=== PATIENT | female | born 1945 | race Caucasian/White ===

== ENCOUNTER → 2017-04-20 13:21 | Outpatient (CLI) | payer MEDICARE, SELFPAY ==
--- NOTE | 2017-04-20 13:22 | STE_ITS ---
Reason For Study: Chest Pain, CM, SOB Stress Results Protocol: Dobutamine Stress Echocardiogram Maximum Predicted HR: 150 bpm Target HR: 128 bpm% Maximum Predicted HR: 87 % DurationHeart Rate Stage (mm:ss) (bpm) BPDos e BASELINE 73 128/75 DSE- 10 MCG 3:11 75 142/7610.00 DSE- 20 MCG 3:12 12 3 154/8120.00 DSE- 30 MCG 2:02 13 0 138/8530.00 RECOVERY 98 94/64 Stress Duration: 8:25 mm:ss Maximum Stress HR: 130 bpm Baseline Echocardiogram Findings The estimated ejection fraction is 65 %. Stress Echo Wall motion Data Resting WMIntermediate WMStress WM Resting Wall Motion Wall Motion Stress No regional wall motion No regional wall motion abnormalities noted. abnormalities noted. EKG Data Normal intervals are noted. The patient was titrated from 10 mcg to a maximun of 30 mcg of dobutamine during the stress. The maximum heart rate attained was 130 beats per minute. This was 86% of maximum predicted heart rate. During dobutamine infusion, there were no ST or T wave changes noted to suggest ischemia. No arrhythmias noted. Interpretation Summary The estimated ejection fraction is 65 %. The patient was titrated from 10 mcg to a maximun of 30 mcg of dobutamine during the stress. Normal adequate dobutamine echocardiogram. Negative for ischemia by EKG and echocardiographic criteria. No anginal symptoms noted. No arrhythmias noted. Appropriate blood pressure response to dobutamine. Test terminated due to attainment of target heart rate. Patient unable to keep up with treadmill initially so was converted to dobutamine echocardiogram. Final LVEF is 75%. Patient tolerated procedure well no complications. Ordering Physician: Toy Silva Referring Physician: Toy Silva Performed By: Radha Mitchell, RDCS, RVT
== END ==
PROVIDERS: Family Provider Internal Medicine; PCP Internal Medicine; Visit Provider Internal Medicine Cardiovascular Disease
DX: R07.9 Chest pain, unspecified (principal); R06.02 Shortness of breath
CPT/HCPCS: 93017; 93350; J7030

== ENCOUNTER → 2018-03-08 12:30 | Outpatient (CLI) | payer MEDICARE, SELFPAY ==
--- NOTE | 2018-03-08 12:34 | ART_ITS ---
Reason For Study: LE numbness Procedure A bilateral lower extremity continuous wave Doppler with analog waveform analysis,segmental pressures,and ankle brachial indexes without exercise. Left Segmental Pressures Left brachial= 127mmHg. Left posterior tibial artery = 143mmHg. Left dorsalis pedis artery = 142mmHg. The left dorsalis pedis waveforms are triphasic. The left posterior tibial artery waveforms are triphasic. Right Segmental Pressures Right brachial= 134mmHg. Right posterior tibial artery = 148mmHg. Right dorsalis pedis artery = 133mmHg. The right dorsalis pedis waveforms are triphasic. The right posterior tibial artery waveforms are triphasic. Indices The right ankle brachial index by the dorsalis pedis is .99. The right ankle brachial index by the posterior tibial artery is 1.1. The left ankle brachial index by the dorsalis pedis is 1.1. The left ankle brachial index by the posterior tibial artery is 1.1. Interpretation Summary Resting ankle-brachial indices appear bilaterally normal. Doppler waveforms are well maintained bilaterally. Volume pulse recordings suggest mild digital waveform blunting bilaterally consistent with small vessel disease or vasospasm--clinical correlation would be appropriate. Ordering Physician: Toy Silva Referring Physician: Marlene Smart M.D. Performed By: Selin Richards RVT
--- NOTE | 2018-03-08 12:34 | CDU_ITS ---
Reason For Study: Bruit, Vertigo Rt. Velocities/BP Lt. Velocities/BP Prox CCA 66.3/19.9 cm/sec. Prox CCA 75.6/21.1 cm/sec. Mid CCA 72.1/20.5 cm/sec. Mid CCA 82.7/17.6 cm/sec. Dist CCA 60.4/18.8 cm/sec. Dist CCA 64.5/21.1 cm/sec. Prox ICA 47.4/15.1 cm/sec. Prox ICA 147.0/43.2 cm/sec. Mid ICA 62.3/22.4 cm/sec. Mid ICA 99.0/24.4 cm/sec. Dist ICA 56.4/18.9 cm/sec. Dist ICA 74.2/20.7 cm/sec. Rt. ICA/CCA = .86. Lt. ICA/CCA = 1.8. Prox ECA 123.0/26.7 cm/sec. Prox ECA 175.0/29.5 cm/sec. Rt. Vert. 68.8/13.3 cm/sec. Lt. Vert. 63.2/21.2 cm/sec. Right Extracranial There is homogeneous, smooth atherosclerotic plaque noted in the right common carotid artery. There is heterogeneous, irregular atherosclerotic plaque noted in the right internal carotid artery. There is no significant atherosclerotic plaque noted in the right external carotid artery. Antegrade flow is noted in the right vertebral artery. Left Extracranial There is intimal thickening but no significant atherosclerotic plaque noted in the left common carotid artery. There is heterogeneous, irregular atherosclerotic plaque noted in the left internal carotid artery. There is heterogeneous, irregular atherosclerotic plaque noted in the left external carotid artery. Antegrade flow is noted in the left vertebral artery. Procedure Carotid Duplex [id number]. Exam performed in department. 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 Performed By: Selin Richards RVT
--- OUTSIDE RECORDS SUMMARY | 2018-05-13 04:44 | XMS RPT_ITS ---
:1945 Author Organization OHIP Support Name Relationship Address Phone ROBERT CAMMIE Unavailable Unavailable + [place] [address] R Unavailable Unavailable Unavailable ROCHELLE RESENDIZER Unavailable Unavailable + [place] [address] PASTAMERALO, CAMMIE Unavailable Unavailable + [place] [address] R Unavailable Unavailable Unavailable ROCHELLE RESENDIZER Unavailable Unavailable + [place] [address] PASQUARIELLO, SUNNY Unavailable [address] + [place] [address] R Unavailable Unavailable Unavailable ROCHELLE RESENDIZER Unavailable . + [place] [address] PASQUARIELLO, SUNNY Unavailable [address] + [place] [address] R Unavailable Unavailable Unavailable ROCHELLE RESENDIZER Unavailable . + [place] [address] PASQUARIELLO, SUNNY Unavailable [address] + [place] [address] R Unavailable Unavailable Unavailable ROCHELLE RESENDIZER Unavailable . + [place] [address] PASQUARIELLO, SUNNY Unavailable [address] + [place] [address] R Unavailable Unavailable Unavailable ROCHELLE RESENDIZER Unavailable . + [place] [address] PASQUARIELLO, SUNNY Unavailable [address] + [place] [address] R Unavailable Unavailable Unavailable ROCHELLE RESENDIZER Unavailable . + [place] [address] PASQUARIELLO, SUNNY Unavailable [address] + [place] [address] R Unavailable Unavailable Unavailable ROQUE RESENDIZ Unavailable Unavailable + SUNNY JONES Unavailable [address] + [place] [address] R Unavailable Unavailable Unavailable ROQUE RESENDIZ Unavailable . + [place] [address] Care Team Providers Name Role Phone TALAMPAS, LUIS D Referring Unavailable TALAMPAS, LUIS D Attending Unavailable TALAMPAS, LUIS D Referring Unavailable TALAMPAS, LUIS D Referring Unavailable TALAMPAS, LUIS D Attending Unavailable Shorty Hanson Attending Unavailable Toy Silva Referring Unavailable Talampas, Luis Primary Care Unavailable Toy Silva Consulting Unavailable Toy Silva Attending Unavailable Toy Silva Referring Unavailable Talampas, Luis Primary Care Unavailable Toy Silva Attending Unavailable Talampas, Luis Referring Unavailable Talampas, Luis Primary Care Unavailable Toy Silva Attending Unavailable Talampas, Luis Referring Unavailable Talampas, Luis Primary Care Unavailable Carina Peña Attending Unavailable Toy Silva Attending Unavailable Toy Silva Referring Unavailable Toy Silva Attending Unavailable Talampas, Luis Referring Unavailable Toy Silva Attending Unavailable Talampas, Luis Referring Unavailable Toy Silva Attending Unavailable Toy Silva Referring Unavailable Talampas, Luis Primary Care Unavailable PROBLEMS PROBLEMS DATE TYPE CONDITION / CODE ATTENDING STATUS SOURCE 03/08/2018 Unknown R19.7 - Diarrhea, Shorty Hanson Active [facility] unspecified / Community R19.7(ICD-10) Hospital Repository 12/11/2017 Unknown R07.9 - Chest pain, Toy Silva Active [facility] unspecified / Community R07.9(ICD-10) Hospital Repository 12/11/2017 Unknown E78.2 - Mixed Toy Silva Active [facility] hyperlipidemia / Community E78.2(ICD-10) Hospital Repository 04/25/2017 Unknown I25.10 - Toy Silva Active [facility] Atherosclerotic heart Community disease of [facility] coronary artery Repository without angina pectoris / I25.10(ICD-10) 04/25/2017 Unknown F17.200 - Nicotine Toy Silva Active [facility] dependence, Community unspecified, Hospital uncomplicated / Repository F17.200(ICD-10) 04/20/2017 Unknown R06.09 - Other forms Toy Silva Active [facility] of dyspnea / Community R06.09(ICD-10) Hospital Repository 04/20/2017 Unknown I25.5 - Ischemic Toy Silva Active [facility] cardiomyopathy / Community I25.5(ICD-10) Hospital Repository 04/20/2017 Unknown I10 - Essential Toy Sliva Active [facility] (primary) Community hypertension / Hospital I10(ICD-10) Repository 04/20/2017 Unknown Z95.5 - Presence of Toy Silva Active [facility] coronary angioplasty Community implant and graft / Hospital Z95.5(ICD-10) Repository 05/01/2015 Active Essential (primary) NA Active [facility] hypertension / Clinic Main I10(ICD-10) [place] Repository 05/01/2015 Active Mixed hyperlipidemia NA Active [facility] / E78.2(ICD-10) Clinic Main [place] Repository 04/11/2017 Active Encounter for other NA Active [facility] specified special Clinic Main examinations / [place] Z01.89(ICD-10) Repository 04/11/2017 Active Other snf NA Active [facility] (current) drug Clinic Main therapy / [place] Z79.899(ICD-10) Repository PROCEDURES PROCEDURES No Procedure Records FoundRESULTS RESULTS ARTERIAL Observed: 03/08/2018 Status: F Source: [place] 3:31 PM [facility] REPOSITORY [facility] Cardiovascular Services [address] [place] [address] Lower Ext Art Exam w/o Exercis 03/08/18 1237 MR#: [id number] Acct: [id number] Name: SARAY HENRY Rep #: [id number] : 1945 72 From: Shorty Hanson MD Attending Dr: Toy Silva MD Status: REG CLI Ordering Dr: Toy Silva MD Date: 03/08/18 Location: [facility] Sex: F C Admitted: Reason For Study: LE numbness Procedure A bilateral lower extremity continuous wave Doppler with analog waveform analysis,segmental pressures,and ankle brachial indexes without exercise. Left Segmental Pressures Left brachial= 127mmHg. Left posterior tibial artery = 143mmHg. Left dorsalis pedis artery = 142mmHg. The left dorsalis pedis waveforms are triphasic. The left posterior tibial artery waveforms are triphasic. Right Segmental Pressures Right brachial= 134mmHg. Right posterior tibial artery = 148mmHg. Right dorsalis pedis artery = 133mmHg. The right dorsalis pedis waveforms are triphasic. The right posterior tibial artery waveforms are triphasic. Indices The right ankle brachial index by the dorsalis pedis is .99. The right ankle brachial index by the posterior tibial artery is 1.1. The left ankle brachial index by the dorsalis pedis is 1.1. The left ankle brachial index by the posterior tibial artery is 1.1. Interpretation Summary Resting ankle-brachial indices appear bilaterally normal. Doppler waveforms are well maintained bilaterally. Volume pulse recordings suggest mild digital waveform blunting bilaterally consistent with small vessel disease or vasospasm--clinical correlation would be appropriate. Ordering Physician: Toy Silva Referring Physician: Luis Smart M.D. Performed By: Seiln Richards [facility] 03/08/18 1530 Date Shorty Hanson MD CC: Toy Silva MD; Luis Smart MD Date Dictated: 03/08/18 1237 Date Transcribed: 03/08/18 1530 Manager Library: Signed CAROTID DUPLEX Observed: 03/08/2018 Status: F Source: [place] ULTRASOUND 3:27 PM [facility] REPOSITORY [facility] Cardiovascular Services [address] [place] [address] Carotid Duplex Ultrasound 03/08/18 1237 MR#: [id number] Acct: [id number] Name: JOCELYNNSARAY LUQUE Rep #: [id number] : 1945 72 From: Shorty Hanson MD Attending Dr: Toy Silva MD Status: REG CLI Ordering Dr: Toy Silva MD Date: 03/08/18 Location: [facility] Sex: F C Admitted: Reason For Study: Bruit, Vertigo Rt. Velocities/BP Lt. Velocities/BP Prox CCA 66.3/19.9 cm/sec. Prox CCA 75.6/21.1 cm/sec. Mid CCA 72.1/20.5 cm/sec. Mid CCA 82.7/17.6 cm/sec. Dist CCA 60.4/18.8 cm/sec. Dist CCA 64.5/21.1 cm/sec. Prox ICA 47.4/15.1 cm/sec. Prox ICA 147.0/43.2 cm/sec. Mid ICA 62.3/22.4 cm/sec. Mid ICA 99.0/24.4 cm/sec. Dist ICA 56.4/18.9 cm/sec. Dist ICA 74.2/20.7 cm/sec. Rt. ICA/CCA = .86. Lt. ICA/CCA = 1.8. Prox ECA 123.0/26.7 cm/sec. Prox ECA 175.0/29.5 cm/sec. Rt. Vert. 68.8/13.3 cm/sec. Lt. Vert. 63.2/21.2 cm/sec. Right Extracranial There is homogeneous, smooth atherosclerotic plaque noted in the right common carotid artery. There is heterogeneous, irregular atherosclerotic plaque noted in the right internal carotid artery. There is no significant atherosclerotic plaque noted in the right external carotid artery. Antegrade flow is noted in the right vertebral artery. Left Extracranial There is intimal thickening but no significant atherosclerotic plaque noted in the left common carotid artery. There is heterogeneous, irregular atherosclerotic plaque noted in the left internal carotid artery. There is heterogeneous, irregular atherosclerotic plaque noted in the left external carotid artery. Antegrade flow is noted in the left vertebral artery. Procedure Carotid Duplex [id number]. Exam performed in department. Interpretation Summary Irregular, calcific plague at the proximal right internal carotid with <50% stenosis. Irregular calcific plague at the distal left common carotid artery and proximal internal carotid artery with 50-69% stenosis of the internal carotid Normal flow right external carotid Moderate disease left external carotid Patent and antegrade vertebrals bilaterally Ordering Physician: Toy Silva Referring Physician: Luis Smart M.D. Performed By: Selin Richards RVT 03/08/18 1526 Date Shorty Hanson MD CC: Toy Silva MD; Luis Smart MD Date Dictated: 03/08/18 1237 Date Transcribed: 03/08/18 1526 Manager Library: Signed CARDIOLOGY VISIT Observed: 12/11/2017 Status: F Source: [place] REPORT 1:52 PM [facility] REPOSITORY [address] [place] [address] OFFICE VISIT Date of Service: 12/11/17 MR#: [id number] Acct: [id number] Name: SARAY HENRY Rep #: [id number] : 1945 Provider: Toy Silva MD Age/Sex: 72/F Location: [facility] Status: Signed HPI HPI Chief Complaint: Routine f/u Details: Chief Complaint: CAD, est with local inspector precision Details: SARAY HENRY, is a 72 F with a history of hypertension, hypercholesterolemia, coronary artery disease status post inferior wall myocardial infarction with emergent angioplasty on 07/17/14 at [facility] with drug-eluting stents 2 to the RCA. At that time she received what appears to be 3.5X 28 Xience [place] in the proximal RCA and a 3.5X 38 Xience alpine drug-eluting stent drug-eluting to the RCA. At that time her EF was 40-45%, and her LAD had a 40% diffuse stenosis, mild disease in her ramus intermedius, 40% left circumflex stenosis. At that time, the patient had severe substernal chest pressure, initially came to [facility], and then was transferred to [facility]. Patient has not had a repeat catheterization since that time. In addition she is a lifelong smoker, and has been smoking since age 18 and continues to do so, and continues to smoke about 1 pack/day. Her most recent echocardiogram dated 08/15/14 showed an EF of 40-45% with stage I diastolic dysfunction. RVSP was not noted. Patient formally saw Dr. Sofy Mace in [place], and was referred for establishment of care as well as dyspnea on exertion. According to the patient, on January 21, 2018 in the afternoon she developed similar substernal chest pressure, which was radiating down her left arm and into her neck, similar to her previous angina, took 2 sublingual nitroglycerin and it resolved. Her Plavix was discontinued about 1 year previous by her primary inspector precision. Prior to that and since that time the patient has had progressively worsening dyspnea on exertion and shortness of breath. She has had no exertional anginal symptoms however. Patient initially completed cardiac rehab when she had her [place] but very soon after that developed severe vertigo and was unable to exercise. Patient underwent dobutamine echocardiogram on 04/20/17, which was negative for inducible ischemia. In addition she underwent pulmonary function tests which demonstrated mildly reversible severe COPD with a DLCO of 48%. She was offered consultation with Dr. Mendoza but has thus far declined. In addition she underwent 2D echo with Doppler in March 2017 showed LV function of 65% and an RVSP of 25 mmHg. Patient returns for routine follow-up, and is doing fairly well. She her breathing markedly improved after stopping her Coreg. Patient complains of bilateral lower extremity numbness and cold feet, but no claudication symptoms. Unfortunately she continues to smoke cigarettes. In our office today her blood pressure is 118/74, pulse is 80 and regular. Her physical exam demonstrates clear lungs bilaterally, regular rate and rhythm, normal S1/S2, no S3-S4. She has no edema. Her lipids as of 04/11/17 show an HDL of 43 and an LDL of 69. Repeat lipids are EKG on previous visit demonstrates normal sinus rhythm, old inferior/posterior wall myocardial infarction, no acute changes. Intake Vital Signs12/11/17 Height 5 ft 5 in 12/11/17 Weight: 174 lb 12/11/17 Body Mass Index (BMI) 28.9 12/11/17 Blood Pressure 118/74 12/11/17 Respiratory Rate 20 H 12/11/17 Pulse Rate 80 Intake Visit Reasons: 6 M FU Allergies NSAIDS (Non-Steroidal Anti-Inflamma Allergy (Verified 11/27/17 10:58) itching Sulfa (Sulfonamide Antibiotics) Allergy (Verified 11/27/17 10:58) Unknown Medications aspirin 81 mg tablet,delayed release 81 mg PO QDAY 01/23/17 [History Confirmed 12/11/17] hydrocodone 5 mg-acetaminophen 325 mg tablet 1 tab PO BID PRN tab 01/23/17 [History Confirmed 12/11/17] meclizine 25 mg tablet 25 mg PO TID PRN tab 01/23/17 [History Confirmed 12/11/17] nitroglycerin 0.4 mg sublingual tablet 0.4 mg SUBLINGUAL Q5M PRN 01/23/17 [History Confirmed 12/11/17] rosuvastatin 5 mg tablet 5 mg PO ONCE 01/23/17 [History Confirmed 12/11/17] albuterol sulfate HFA 90 mcg/actuation aerosol inhaler 2 puff INHALATION Q6H 04/25/17 [History Confirmed 12/11/17] hydrochlorothiazide 12.5 mg capsule 12.5 mg PO QDAY #90 cap 04/25/17 [Rx Confirmed 12/11/17] losartan 25 mg tablet 25 mg PO DAILY 12/11/17 [History Confirmed 12/11/17] PFS Medical History Nicotine dependence (Chronic) Ischemic cardiomyopathy (Chronic) Mixed hyperlipidemia (Chronic) Hypertension (Chronic) Atherosclerotic heart disease of [place] coronary artery without angina pectoris (Chronic) Old inferior wall myocardial infarction (Chronic) Anxiety (Chronic) COPD (chronic obstructive pulmonary disease) (Chronic) Cataracts, bilateral (Chronic) Diverticulosis (Chronic) Nicotine addiction (Chronic) hemorroids (Chronic) Surgical History History of coronary artery stent placement (Chronic 07/17/14) History of partial hysterectomy (Chronic) Family History Brother CAD (coronary artery disease) mid 40's from [place] Son CAD (coronary artery disease) mid 40's from [place] Father Diabetes Social History Smoking Status: Current every day smoker tobacco type: cigarettes alcohol intake: current details: occasional ROS Const Const: Negative for fatigue, frequent falls, weakness, excessive sweating, headache(s) or difficulty sleeping Eyes Eyes: Negative for loss of peripheral vision, transient loss of vision, double vision, blurry vision or tunnel vision ENT ENT: Negative for headache(s), dizziness, Nosebleed/epistaxis or balance problems Cardio Chest Pain: No Palpitations: No Edema: None Muscle aches with walking: Bilateral (c/o BLE coldness and numbness) Resp Respiratory: Negative for SOB with activity, SOB at rest, SOB orthopnea\SOB lying down, Cough or paroxysmal nocturnal dyspnea Additional Details: Diminished lower 1/2 GI GI: Negative nausea, vomiting, heartburn or black,tarry stools : Negative for hematuria Musc Musc: Positive for joint pain (Bilateral shoulder pain with movement); negative for balance problems, muscle aches/ myalgia or muscle weakness Skin Skin: Negative non-healing lesions, rash or unusual bruising Neuro Neuro: Positive for orthostatic symptoms (Occasional lightheadedness); negative for frequent falls, weakness, headache(s), double vision, blurry vision, dizziness, lightheadedness, near syncope, syncope or lack of coordination Dash Hematologic/Lymphatic: Negative for easy bruising or easy bleeding Endo Endo: Negative for fatigue, excessive sweating or increased thirst/drinking Psych Psych: Negative for anxiety or depression Allergy Allergy/Immunology: Negative for rash, Negative for hives Cardiology Exam Const Appearance: cooperative, healthy appearing and no acute distress Nutritional Appearance: well nourished Orientation: alert, oriented x3 and oriented to person Head Head: normal to inspection, atraumatic and normocephalic Nose: external nose normal Face and Sinus: face symmetric Mouth: oral mucosae normal Eyes General: appearance normal, both eyes and all related structures Eyelids: eyelids normal Conjunctivae: conjunctivae normal Pupils: PERRL and normal by confrontation EOM: EOM intact bilaterally Neck Neck: normal visual inspection and full ROM Carotids: normal carotid upstroke Chest Chest inspection: normal inspection of the chest Auscultation: Bilateral: Clear to Auscultation Cardio Palpation: normal PMI Rate: regular rate Rhythm: regular rhythm Heart sounds: S1 normal and S2 normal GI GI: normal to inspection, no hepatosplenomegaly and bowel sounds present Neuro General: alert, oriented x3, awake, CN's II-XI intact bilaterally and moves all extremities Skin Skin: no rashes or lesions noted Extremities Pulses: Normal: Right Femoral Pulse, Left Femoral Pulse, Right Dorsalis Pedis Pulse, Left Dorsalis Pedis Pulse, Right Posterior Tibial Pulse, Left Posterior Tibial Pulse, Right Radial Pulse, Left Radial Pulse Lower Extremity Edema: None: Bilateral Psych Psychological: normal affect Assessment AND Plan 1. Atherosclerotic heart disease of [place] coronary artery without angina pectoris I25.10 Plan 1. Coronary artery disease: No exertional anginal symptoms at this time. No indication for any additional testing. I recommended that she continue her current antihypertensive medications as well as baby aspirin, hydrochlorothiazide, and losartan. I strongly encouraged her to discontinue all tobacco products, and the patient is willing to do so. If she is unable to quit by the time of our next visit, she is agreed to try Chantix therapy. She has failed nicotine patches twice in the past. In addition we will obtain carotid Dopplers for her carotid stenosis monitoring, as well as bilateral exercise PVRs for her lower extremity numbness, tingling and cold feet. Initially her pulses in her feet are depressed although present. 2. Mixed hyperlipidemia E78.2 Plan 2. Hyperlipidemia: We are awaiting a repeat lipid profile. Continue Crestor. Her previous lipid profile showed an LDL of 69 and HDL of 43 in March 2017. 3. Return office in 6 months. This note was generated using a voice recognition system and there may be incorrect words, spelling or punctuation that were not noted when reviewing the office note prior to saving. Orders Orders: Plan Detail Other Orders Orders: Follow Up +6M (Ricardo) Coding Level of Care Code Off vis,est,level 3 Diagnoses Atherosclerotic heart disease of [place] coronary artery without angina pectoris I25.10 Mixed hyperlipidemia E78.2 Coding Level of Care Code Off vis,est,level 3 Diagnoses Atherosclerotic heart disease of [place] coronary artery without angina pectoris I25.10 Mixed hyperlipidemia E78.2 12/11/17 1702 <Electronically signed by Toy Silva MD> Date Toy Silva MD [facility] Signature: Date (if applicable) CC: Luis Smart MD CARDIOLOGY VISIT Observed: 11/29/2017 Status: F Source: [place] REPORT 2:06 PM [facility] REPOSIT[facility] [address] [place] [address] OFFICE VISIT Date of Service: 12/11/17 MR#: [id number] Acct: [id number] Name: SARAY HENRY Rep #: [id number] : 1945 Provider: Toy Silva MD Age/Sex: 72/F Location: [facility] Status: Signed HPI HPI Details: SARAY HENRY, is a 72 F who presents to the office today for Intake Intake Visit Reasons: 6 M FU Allergies NSAIDS (Non-Steroidal Anti-Inflamma Allergy (Verified 11/27/17 10:58) itching Sulfa (Sulfonamide Antibiotics) Allergy (Verified 11/27/17 10:58) Unknown Medications aspirin 81 mg tablet,delayed release 81 mg PO QDAY 01/23/17 [History Confirmed 04/25/17] hydrocodone 5 mg-acetaminophen 325 mg tablet 1 tab PO BID PRN tab 01/23/17 [History Confirmed 04/25/17] meclizine 25 mg tablet 25 mg PO TID PRN tab 01/23/17 [History Confirmed 04/25/17] nitroglycerin 0.4 mg sublingual tablet 0.4 mg SUBLINGUAL Q5M PRN 01/23/17 [History Confirmed 04/25/17] rosuvastatin 5 mg tablet 5 mg PO ONCE 01/23/17 [History Confirmed 04/25/17] valsartan 40 mg tablet 40 mg PO QDAY tab 01/23/17 [History Confirmed 04/25/17] albuterol sulfate HFA 90 mcg/actuation aerosol inhaler 2 puff INHALATION Q6H 04/25/17 [History Confirmed 04/25/17] hydrochlorothiazide 12.5 mg capsule 12.5 mg PO QDAY #90 cap 04/25/17 [Rx Confirmed 04/25/17] [facility] Medical History Nicotine dependence (Chronic) Ischemic cardiomyopathy (Chronic) Mixed hyperlipidemia (Chronic) Hypertension (Chronic) Atherosclerotic heart disease of [place] coronary artery without angina pectoris (Chronic) Old inferior wall myocardial infarction (Chronic) Anxiety (Chronic) COPD (chronic obstructive pulmonary disease) (Chronic) Cataracts, bilateral (Chronic) Diverticulosis (Chronic) Nicotine addiction (Chronic) hemorroids (Chronic) Surgical History History of coronary artery stent placement (Chronic 07/17/14) History of partial hysterectomy (Chronic) Family History Brother CAD (coronary artery disease) mid 40's from [place] Son CAD (coronary artery disease) mid 40's from [place] Father Diabetes Social History Smoking Status: Current every day smoker tobacco type: cigarettes alcohol intake: current details: occasional ROS Const Const: Negative for fatigue, weakness, body ache, fever(s), headache(s), chills, frequent falls, night sweats, daytime sleepiness, difficulty sleeping, excessive sweating, weight gain, weight loss, increased appetite, poor appetite, anorexia or other Eyes Eyes: Negative for blind spots, loss of peripheral vision, transient loss of vision, blurry vision, change in vision, double vision, floaters, tunnel vision or other ENT ENT: Negative for headache(s), dizziness, hearing loss, tinnitus, Nosebleed/epistaxis, balance problems, post nasal drip, lip swelling, tongue swelling, bleeding gums, hoarseness, neck pain, dry mouth or other Cardio Chest Pain: No Resp Respiratory: Negative for SOB with activity, SOB at rest, SOB orthopnea\SOB lying down, Coughing up blood/hemoptysis, chest congestion, pain on inspiration, snoring, stridor, wheezing, crackles, paroxysmal nocturnal dyspnea or other GI GI: Negative nausea, vomiting, heartburn, constipation, belching, bloating, cramping, vomiting blood/hematemesis, bright, red blood in stools, black,tarry stools, loose stools, Difficulty Swallowing or other : Negative for hematuria, frequent nighttime urination/ nocturia, erectile dysfunction or abnormal vaginal bleeding Musc Musc: Negative for balance problems, muscle aches/ myalgia, muscle weakness or joint pain Skin Skin: Negative redness, non-healing lesions, rash, unusual bruising, skin ulcer, wounds, jaundice or other Neuro Neuro: Negative for weakness, headache(s), frequent falls, blurry vision, double vision, dizziness, lightheadedness, near syncope, syncope, orthostatic symptoms, confusion, memory loss, restless legs, vertigo, seizures, lack of coordination or other Dash Hematologic/Lymphatic: Negative for easy bleeding, easy bruising, enlarged lymph nodes or other Endo Endo: Negative for fatigue, excessive sweating, cold intolerance, heat intolerance, flushing, increased thirst/drinking, increased hunger, hair loss, hair growth or other Psych Psych: Negative for anxiety, depression, thoughts of harming anyone, thoughts of harming yourself, visual hallucinations, panic attacks or audible hallucinations Allergy Allergy/Immunology: Negative for lip swelling, Negative for tongue swelling, Negative for rash, Negative for throat swelling, Negative for hives Coding Level of Care Code Off vis,new,level 3 Coding Level of Care Code Off vis,new,level 3 11/29/17 1406 <Electronically signed by Toy Silva MD> Date Toy Silva MD Cosign Signature: Date (if applicable) CC: Luis Smart MD PROGRESS Observed: 09/20/2017 Status: COMPLETED Source: [place] 12:18 PM [facility] REPOSITORY [facility] ID: [id number] Author: Luis Smart Service: (none) Author Type: Physician Type: Progress Notes Filed: 10/10/2017 11:45 PM Note Text: Patient presents with: f/up SUBJECTIVE: Saray Henry is a 71 year old year old lady here today for follow up appointment for review of medical conditions. In middle of the night sometimes gets a little lightheaded/woozy--sugar versus BP. Has BP cuff but had not checked BP. Does not have DM, so does not have a glucometer. Discussed diet--has gained weight since stents placed after UT. Has been drinking lemonade daily the past 3 years in addition to what she had been eating before the UT. Boyfriend likes baked goods so she does a lot of baking--she ends up eating more than she would have if was not baking for him. Does like pasta and bread, though limits pasta to once a week. Discussed needing to replace Diovan since not available now. Did not get replacement losartan 50 mg since was worried might drop her pressure after read that could interact with her water pill. Pharmacist had recommended 50 mg being equivalent though was taking just 40 mg Diovan. BPs have been running on the low side. Even after inspector precision stopped Coreg, BP still in 100's SBP even at July appointment with me. Ran out of Diovan after Monday dose. Only on HCTZ yesterday and today. Feels okay. No symptoms of BP too high or too low. 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 aspirin, enteric coated (ASPIRIN, ENTERIC COATED) 81 mg EC tablet take 1 tablet by mouth once daily triamcinolone acetonide (KENALOG) 0.1 % cream Apply 1 application to affected area three times daily as needed. Apply sparingly to area for rash/itching on lower back. ketoconazole (NIZORAL) 2 % cream Apply 1 application to affected area once daily. To lower back; extend to 7 days after rash clears up. nitroglycerin sublingual (NITROQUICK) 0.4 mg SL tablet Dissolve 1 tablet under the tongue every 5 minutes as needed for Chest Pain. albuterol HFA (VENTOLIN HFA) 90 mcg/actuation inhaler Inhale 2 Puffs as instructed every 4 hours as needed for Wheezing/Shortness of Breath. Hydrochlorothiazide 12.5 mg capsule Take 12.5 mg by mouth once daily. HYDROcodone-acetaminophen (NORCO) 5-325 mg per tablet Take 1 tablet by mouth twice daily as needed for Pain. Blood Pressure Cuff - Home Use BLOOD PRESSURE CUFF FOR HOME USE. DX: I10 Hypertension, I25.10 CAD nicotine (NICODERM) 21 mg/24 hr Apply 1 Patch as directed every 24 hours. rosuvastatin (CRESTOR) 5 mg tablet Take 1 tablet by mouth daily at bedtime. meclizine (ANTIVERT) 25 mg tab Take 1 tablet by mouth three times daily as needed (dizziness). L.acidophilus-bifido.longum (PROBIOTIC PEARLS) 15 mg (1 billion cell) cpDR Take 1 tablet by mouth once daily as needed. dicyclomine (BENTYL) 10 mg capsule Take 1 capsule by mouth three times daily as needed. LORazepam (ATIVAN) 0.5 mg tab Take 1 tablet by mouth once daily as needed. diphenhydrAMINE (BENADRYL) 25 mg ORAL capsule as needed No current facility-administered medications for this visit. OBJECTIVE: BP 120/80 (BP Site: Left Arm, BP Position: Sitting, BP Cuff Size: Regular Adult) Pulse 76 Resp 20 Wt 78.9 kg (174 lb) SpO2 96% BMI 28.96 kg/m? Patient is overweight with central obesity habitus though BMI <30; alert, oriented times 3, no apparent distress, affect is bright, reactive. Last 5 Encounter BP Readings: Date: BP: 09/20/2017 120/80 08/04/2017 100/60 05/01/2017 100/62 04/19/2017 132/72 03/02/2017 98/64 Last 5 Encounter Wt Readings: Date: Wt: 09/20/2017 78.9 kg (174 lb) 08/04/2017 78.5 kg (173 lb) 05/01/2017 77.6 kg (171 lb) 04/19/2017 77.1 kg (170 lb) 03/02/2017 77.6 kg (171 lb) Heart: Regular rate, rhythm, no murmurs, gallops, rubs. Lungs: Clear to auscultation, bilaterally, breathing non labored. Ext: No cyanosis, clubbing, or edema. Component Latest Ref Rng AND Units 04/21/2015 08/06/2015 01/05/2016 08/08/2016 04/11/2017 09/18/2017 WBC 3.70 - 11.00 k/uL 8.77 9.34 9.31 RBC 3.90 - 5.20 m/uL 4.83 5.10 4.90 Hemoglobin 11.5 - 15.5 g/dL 15.2 15.7 (H) 15.2 Hematocrit 36.0 - 46.0 % 46.0 49.4 (H) 46.8 (H) MCV 80.0 - 100.0 fL 95.2 96.9 95.5 MCH 26.0 - 34.0 pG 31.5 30.8 31.0 MCHC 30.5 - 36.0 g/dL 33.0 31.8 32.5 RDW-CV 11.5 - 15.0 % 13.4 12.4 13.1 Platelet Count 150 - 400 k/uL 297 320 318 MPV 9.0 - 12.7 fL 9.9 10.2 10.3 Neut% % 64.4 Abs Neut (ANC) 1.45 - 7.50 k/uL 5.99 Lymph% % 27.2 Abs Lymph 1.00 - 4.00 k/uL 2.53 Grant% % 5.8 Abs Grant <0.87 k/uL 0.54 Eosin% % 2.0 Abs Eosin <0.46 k/uL 0.19 Baso% % 0.6 Abs Baso <0.11 k/uL 0.06 Nucleated Reds 0 /100 WBC 0.0 Absolute nRBC <0.01 k/uL <0.01 <0.01 Diff Type Auto Diff Protein, Total 6.3 - 8.0 g/dL 6.8 Albumin 3.9 - 4.9 g/dL 4.0 Calcium 8.5 - 10.2 mg/dL 9.1 9.2 9.0 9.0 9.4 9.2 Bilirubin, Total 0.2 - 1.3 mg/dL 0.2 Alkaline Phosphatase 32 - 117 U/L 70 AST 13 - 35 U/L 17 Glucose 74 - 99 mg/dL 86 90 102 (H) 100 (H) 87 97 BUN 7 - 21 mg/dL 8 8 9 7 9 8 Creatinine 0.58 - 0.96 mg/dL 0.64 (L) 0.59 (L) 0.67 0.68 0.63 0.67 Sodium 136 - 144 mmol/L 140 140 143 139 138 140 Potassium 3.7 - 5.1 mmol/L 4.1 4.3 4.0 4.2 4.0 3.9 Chloride 97 - 105 mmol/L 100 100 100 99 95 (L) 96 (L) CO2 22 - 30 mmol/L 31 27 27 27 33 (H) 29 Anion Gap 9 - 18 mmol/L 9 13 16 13 10 15 ALT 7 - 38 U/L 13 13 eGFR- >60 >60 >60 >60 >60 >60 eGFR-All Other Races . >60 >60 >60 >60 >60 >60 Triglyceride <150 mg/dL 201 (H) 176 (H) 168 (H) 190 (H) 219 (H) Cholesterol, Total <200 mg/dL 184 157 186 175 156 HDL Cholesterol >39 mg/dL 53 (L) 43 (L) 49 (L) 45 (L) 43 VLDL Cholesterol <30 mg/dL 40 35 34 38 44 (H) LDL Cholesterol <100 mg/dL 91 79 103 92 69 Fasting Time hrs FASTING fasting 11 11 10 TC:HDL Ratio <5.10 3.47 3.65 3.80 3.89 3.63 LDL:HDL Ratio <2.54 1.72 1.84 2.10 2.04 1.60 Non HDL Cholesterol <130 mg/dL 131 114 137 130 113 CK 30 - 220 U/L 23 (L) WSR 0 - 15 mm/hr 2 ASSESSMENT AND PLAN: Encounter Diagnosis ICD-10-CM 1. Essential hypertension I10 losartan (COZAAR) 25 mg tablet COMP METABOLIC PANEL CBC 2. Mixed hyperlipidemia E78.2 LIPID PANEL BASIC 3. Chronic right-sided thoracic back pain M54.6 HYDROcodone-acetaminophen (NORCO) 5-325 mg per tablet G89.29 4. Overweight (BMI 25.0-29.9) E66.3 5. Tobacco use disorder F17.200 6. Encounter for long-term current use of medication Z79.899 COMP METABOLIC PANEL CBC Discussed BP med (Diovan and recall, and switch to other ARB, Cozaar) as noted above. Adjust dose as indicated. Plans to cut back on sweets. Will help with TG as well as weight loss and DM prevention. Discussed smoking cessation--encouraged to deal with triggers. Aware of reasons needs to quit smoking. Above issues addressed with patient. Patient involved in shared decision making for management of her medical issues. History and medications reviewed. Epic updated as needed Refills taken care of and meds adjusted as indicated after reviewed history, exam and labs. Health Maintenance reviewed. Updated record and/or ordered tests as recorded. Encouraged on efforts at healthy diet and regular exercise and adequate sleep. The majority of the visit was spent counseling and/or coordinating care for the patient. Vvpb-as-ugtt time was at least 25 minutes. Luis Smart MD CNOV Observed: 09/20/2017 Status: COMPLETED Source: [place] 11:40 AM [facility] [place] REPOSITORY Office Visit (INTMWS) SARAY HENRY ([id number]) 1945 F Date Time Provider Department 09/20/17 11:40 AM LUIS SMART INTMWS During your visit today, we recorded the following information about you: Pulse Respiration Blood pressure Weight 76/minute 20/minute 120/80 78.9 kg Luis Smart MD 10/10/2017 11:45 PM Signed Patient presents with: f/up SUBJECTIVE: Saray Henry is a 71 year old year old lady here today for follow up appointment for review of medical conditions. In middle of the night sometimes gets a little lightheaded/woozy--sugar versus BP. Has BP cuff but had not checked BP. Does not have DM, so does not have a glucometer. Discussed diet--has gained weight since stents placed after UT. Has been drinking lemonade daily the past 3 years in addition to what she had been eating before the UT. Boyfriend likes baked goods so she does a lot of baking--she ends up eating more than she would have if was not baking for him. Does like pasta and bread, though limits pasta to once a week. Discussed needing to replace Diovan since not available now. Did not get replacement losartan 50 mg since was worried might drop her pressure after read that could interact with her water pill. Pharmacist had recommended 50 mg being equivalent though was taking just 40 mg Diovan. BPs have been running on the low side. Even after inspector precision stopped Coreg, BP still in 100's SBP even at July appointment with me. Ran out of Diovan after Monday dose. Only on HCTZ yesterday and today. Feels okay. No symptoms of BP too high or too low. 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 aspirin, enteric coated (ASPIRIN, ENTERIC COATED) 81 mg EC tablet take 1 tablet by mouth once daily triamcinolone acetonide (KENALOG) 0.1 % cream Apply 1 application to affected area three times daily as needed. Apply sparingly to area for rash/itching on lower back. ketoconazole (NIZORAL) 2 % cream Apply 1 application to affected area once daily. To lower back; extend to 7 days after rash clears up. nitroglycerin sublingual (NITROQUICK) 0.4 mg SL tablet Dissolve 1 tablet under the tongue every 5 minutes as needed for Chest Pain. albuterol HFA (VENTOLIN HFA) 90 mcg/actuation inhaler Inhale 2 Puffs as instructed every 4 hours as needed for Wheezing/Shortness of Breath. Hydrochlorothiazide 12.5 mg capsule Take 12.5 mg by mouth once daily. HYDROcodone-acetaminophen (NORCO) 5-325 mg per tablet Take 1 tablet by mouth twice daily as needed for Pain. Blood Pressure Cuff - Home Use BLOOD PRESSURE CUFF FOR HOME USE. DX: I10 Hypertension, I25.10 CAD nicotine (NICODERM) 21 mg/24 hr Apply 1 Patch as directed every 24 hours. rosuvastatin (CRESTOR) 5 mg tablet Take 1 tablet by mouth daily at bedtime. meclizine (ANTIVERT) 25 mg tab Take 1 tablet by mouth three times daily as needed (dizziness). L.acidophilus-bifido.longum (PROBIOTIC PEARLS) 15 mg (1 billion cell) cpDR Take 1 tablet by mouth once daily as needed. dicyclomine (BENTYL) 10 mg capsule Take 1 capsule by mouth three times daily as needed. LORazepam (ATIVAN) 0.5 mg tab Take 1 tablet by mouth once daily as needed. diphenhydrAMINE (BENADRYL) 25 mg ORAL capsule as needed No current facility-administered medications for this visit. OBJECTIVE: BP 120/80 (BP Site: Left Arm, BP Position: Sitting, BP Cuff Size: Regular Adult) Pulse 76 Resp 20 Wt 78.9 kg (174 lb) SpO2 96% BMI 28.96 kg/m? Patient is overweight with central obesity habitus though BMI <30; alert, oriented times 3, no apparent distress, affect is bright, reactive. Last 5 Encounter BP Readings: Date: BP: 09/20/2017 120/80 08/04/2017 100/60 05/01/2017 100/62 04/19/2017 132/72 03/02/2017 98/64 Last 5 Encounter Wt Readings: Date: Wt: 09/20/2017 78.9 kg (174 lb) 08/04/2017 78.5 kg (173 lb) 05/01/2017 77.6 kg (171 lb) 04/19/2017 77.1 kg (170 lb) 03/02/2017 77.6 kg (171 lb) Heart: Regular rate, rhythm, no murmurs, gallops, rubs. Lungs: Clear to auscultation, bilaterally, breathing non labored. Ext: No cyanosis, clubbing, or edema. Component Latest Ref Rng AND Units 04/21/2015 08/06/2015 01/05/2016 08/08/2016 04/11/2017 09/18/2017 WBC 3.70 - 11.00 k/uL 8.77 9.34 9.31 RBC 3.90 - 5.20 m/uL 4.83 5.10 4.90 Hemoglobin 11.5 - 15.5 g/dL 15.2 15.7 (H) 15.2 Hematocrit 36.0 - 46.0 % 46.0 49.4 (H) 46.8 (H) MCV 80.0 - 100.0 fL 95.2 96.9 95.5 MCH 26.0 - 34.0 pG 31.5 30.8 31.0 MCHC 30.5 - 36.0 g/dL 33.0 31.8 32.5 RDW-CV 11.5 - 15.0 % 13.4 12.4 13.1 Platelet Count 150 - 400 k/uL 297 320 318 MPV 9.0 - 12.7 fL 9.9 10.2 10.3 Neut% % 64.4 Abs Neut (ANC) 1.45 - 7.50 k/uL 5.99 Lymph% % 27.2 Abs Lymph 1.00 - 4.00 k/uL 2.53 Grant% % 5.8 Abs Grant <0.87 k/uL 0.54 Eosin% % 2.0 Abs Eosin <0.46 k/uL 0.19 Baso% % 0.6 Abs Baso <0.11 k/uL 0.06 Nucleated Reds 0 /100 WBC 0.0 Absolute nRBC <0.01 k/uL <0.01 <0.01 Diff Type Auto Diff Protein, Total 6.3 - 8.0 g/dL 6.8 Albumin 3.9 - 4.9 g/dL 4.0 Calcium 8.5 - 10.2 mg/dL 9.1 9.2 9.0 9.0 9.4 9.2 Bilirubin, Total 0.2 - 1.3 mg/dL 0.2 Alkaline Phosphatase 32 - 117 U/L 70 AST 13 - 35 U/L 17 Glucose 74 - 99 mg/dL 86 90 102 (H) 100 (H) 87 97 BUN 7 - 21 mg/dL 8 8 9 7 9 8 Creatinine 0.58 - 0.96 mg/dL 0.64 (L) 0.59 (L) 0.67 0.68 0.63 0.67 Sodium 136 - 144 mmol/L 140 140 143 139 138 140 Potassium 3.7 - 5.1 mmol/L 4.1 4.3 4.0 4.2 4.0 3.9 Chloride 97 - 105 mmol/L 100 100 100 99 95 (L) 96 (L) CO2 22 - 30 mmol/L 31 27 27 27 33 (H) 29 Anion Gap 9 - 18 mmol/L 9 13 16 13 10 15 ALT 7 - 38 U/L 13 13 eGFR- >60 >60 >60 >60 >60 >60 eGFR-All Other Races . >60 >60 >60 >60 >60 >60 Triglyceride <150 mg/dL 201 (H) 176 (H) 168 (H) 190 (H) 219 (H) Cholesterol, Total <200 mg/dL 184 157 186 175 156 HDL Cholesterol >39 mg/dL 53 (L) 43 (L) 49 (L) 45 (L) 43 VLDL Cholesterol <30 mg/dL 40 35 34 38 44 (H) LDL Cholesterol <100 mg/dL 91 79 103 92 69 Fasting Time hrs FASTING fasting 11 11 10 TC:HDL Ratio <5.10 3.47 3.65 3.80 3.89 3.63 LDL:HDL Ratio <2.54 1.72 1.84 2.10 2.04 1.60 Non HDL Cholesterol <130 mg/dL 131 114 137 130 113 CK 30 - 220 U/L 23 (L) WSR 0 - 15 mm/hr 2 ASSESSMENT AND PLAN: Encounter Diagnosis ICD-10-CM 1. Essential hypertension I10 losartan (COZAAR) 25 mg tablet COMP METABOLIC PANEL CBC 2. Mixed hyperlipidemia E78.2 LIPID PANEL BASIC 3. Chronic right-sided thoracic back pain M54.6 HYDROcodone-acetaminophen (NORCO) 5-325 mg per tablet G89.29 4. Overweight (BMI 25.0-29.9) E66.3 5. Tobacco use disorder F17.200 6. Encounter for long-term current use of medication Z79.899 COMP METABOLIC PANEL CBC Discussed BP med (Diovan and recall, and switch to other ARB, Cozaar) as noted above. Adjust dose as indicated. Plans to cut back on sweets. Will help with TG as well as weight loss and DM prevention. Discussed smoking cessation--encouraged to deal with triggers. Aware of reasons needs to quit smoking. Above issues addressed with patient. Patient involved in shared decision making for management of her medical issues. History and medications reviewed. Epic updated as needed Refills taken care of and meds adjusted as indicated after reviewed history, exam and labs. Health Maintenance reviewed. Updated record and/or ordered tests as recorded. Encouraged on efforts at healthy diet and regular exercise and adequate sleep. The majority of the visit was spent counseling and/or coordinating care for the patient. Vwmf-gg-mzzd time was at least 25 minutes. Luis Smart MD Referring Provider: SELF [[id number]] Allergies As of Date: 09/20/2017 Noted Allergy Reaction MACROBID (NITROFURANTOIN MONOHYD/*02/17/2017 9 - Itching NAPROSYN (NAPROXEN) 10/01/2012 7 - Swelling SULFA (SULFONAMIDE ANTIBIOTICS) 02/03/2010 2 - Rash Date Reviewed: 09/20/2017 Reviewed by: Tyree Boswell - Fully Assessed Reason for Visit: f/up [Other] Primary Visit Diagnosis:Essential hypertension [I10] Other Visit Diagnoses:Mixed hyperlipidemia [E78.2] Chronic right-sided thoracic back pain [M54.6, G89.29] Overweight (BMI 25.0-29.9) [E66.3] Tobacco use disorder [F17.200] Encounter for long-term current use of medication [Z79.899] Order(s):HYDROcodone-acetaminophen (NORCO) 5-325 mg per tabletTake 1 tablet by mouth twice daily as needed for Pain for up to 30 days. Earliest Fill Date: 09/20/17Disp: 30 tabletRfl: 0 losartan (COZAAR) 25 mg tabletTake 1 tablet by mouth once daily.Disp: 90 tabletRfl: 3 LIPID PANEL BASIC [SQLIPB] Order #: [id number] FUTURE COMP METABOLIC PANEL [SQCMP] Order #: [id number] FUTURE CBC [SQCBC] Order #: [id number] FUTURE Prescriptions as of 09/20/2017 Sig: ASPIRIN 81 MG TABLET,DELAYED * take 1 tablet by mouth once d* TRIAMCINOLONE ACETONIDE 0.1 %* Apply 1 application to affect* KETOCONAZOLE 2 % TOPICAL CREAM Apply 1 application to affect* NITROGLYCERIN 0.4 MG SUBLINGU* Dissolve 1 tablet under the t* ALBUTEROL SULFATE HFA 90 MCG/* Inhale 2 Puffs as instructed * HYDROCHLOROTHIAZIDE 12.5 MG C* Take 12.5 mg by mouth once da* COMPOUNDED PRESCRIPTION BLOOD PRESSURE CUFF FOR HOME * NICOTINE 21 MG/24 HR DAILY TR* Apply 1 Patch as directed krystal* ROSUVASTATIN 5 MG TABLET Take 1 tablet by mouth daily * MECLIZINE 25 MG TABLET Take 1 tablet by mouth three * L.ACIDOPHILUS-BIF.LONGUM 15 M* Take 1 tablet by mouth once d* DICYCLOMINE 10 MG CAPSULE Take 1 capsule by mouth three* LORAZEPAM 0.5 MG TABLET Take 1 tablet by mouth once d* DIPHENHYDRAMINE 25 MG CAPSULE as needed HYDROCODONE 5 MG-ACETAMINOPHE* Take 1 tablet by mouth twice * LOSARTAN 25 MG TABLET Take 1 tablet by mouth once d* Medication notes this encounter CARVEDILOL 3.125 MG TABLET >> Tyree Boswell 09/20/2017 11:45 AM >> TYREE BOSWELL Wed Sep 20, 2017 11:45 AM No longer taking. >> Luis Smart MD 09/20/2017 12:44 PM low BP Problem List As Of Date 09/20/2017 Noted Resolved Personal history of colonic polyps [Z86.010] Family history of malignant neoplasm of gastroi* 12/10/2009 Diarrhea [R19.7] Internal hemorrhoids without mention of complic*INVALID FOR* Tobacco use disorder [F17.200] INVALID FOR* Anxiety [F41.9] INVALID FOR* Family history of early CAD [Z82.49] INVALID FOR* Mixed hyperlipidemia [E78.2] INVALID FOR* Essential hypertension [I10] Epigastric pain [R10.13] INVALID FOR* Dysphagia [R13.10] INVALID FOR* S/P coronary artery stent placement [Z95.5] INVALID FOR* Seborrheic keratoses [L82.1] INVALID FOR* Asthma with chronic obstructive pulmonary disea*INVALID FOR* Prescriptions ordered this encounter Disp Refills Start End HYDROCODONE 5 MG-ACETAMINOPHEN 325 M* 30 t* 0 09/20/2017 10/20/2017 Class: Print RX Route: ORAL Sig: Take 1 tablet by mouth twice daily as needed for Pain for up to 30 days. Earliest Fill Date: 09/20/17 LOSARTAN 25 MG TABLET 90 t* 3 09/20/2017 Cmt: Cancel the RX for 50 mg pills Route: ORAL Sig: Take 1 tablet by mouth once daily. Medications Discontinued During This Encounter carvedilol (COREG) 3.125 mg tablet 180 * 3 04/19/2017 09/20/2017 Cmt: Please keep on file till needs filled Route: ORAL Sig: Take 1 tablet by mouth twice daily with meals. Disc: Reason for discontinue is not on file. HYDROcodone-acetaminophen (NORCO) 5-* 30 t* 0 12/09/2016 09/20/2017 Class: Print RX Route: ORAL Sig: Take 1 tablet by mouth twice daily as needed for Pain. Disc: Reason for discontinue is not on file. losartan (COZAAR) 50 mg tablet 60 t* 5 09/18/2017 09/20/2017 Route: ORAL Sig: Take 1 tablet by mouth once daily. Disc: Reason for discontinue is not on file. Disposition: Return in about 6 months (around 03/23/2018) for 6 months follow up, With labs prior. Follow-up and Disposition History Recorded Encounter Status:Closed by LUIS SMART MD on 10/10/17 CBC AND DIFFERENTIAL Collected: 09/18/2017 Status: F Source: [place] 8:37 AM [facility] [place] REPOSITORY TYPE CODE TESTS RESULT OUT OF REFERENCE UNITS RANGE LAB WBC 3.70-11.00 k/uL WBC 9.31 LAB RBC 3.90-5.20 m/uL RBC 4.90 LAB HGB 11.5-15.5 g/dL Hemoglobin 15.2 LAB HCT 36.0-46.0 % High Hematocrit 46.8 LAB MCV 80.0-100.0 fL MCV 95.5 LAB MCH 26.0-34.0 pG MCH 31.0 LAB MCHC 30.5-36.0 g/dL MCHC 32.5 LAB RDWCV 11.5-15.0 % RDW-CV 13.1 LAB PLTCT 150-400 k/uL Platelet Count 318 LAB MPV 9.0-12.7 fL MPV 10.3 LAB ANEUT % Neut% 64.4 LAB AANEUT 1.45-7.50 k/uL Abs Neut 5.99 LAB ALYMP % Lymph% 27.2 LAB AALYMP 1.00-4.00 k/uL Abs Lymph 2.53 LAB AMONO % Grant% 5.8 LAB AAMONO <0.87 k/uL Abs Grant 0.54 LAB AEOS % Eosin% 2.0 LAB AAEOS <0.46 k/uL Abs Eosin 0.19 LAB ABASO % Baso% 0.6 LAB AABASO <0.11 k/uL Abs Baso 0.06 LAB AUNRBC 0 /100 WBC NRBCs 0.0 LAB ABNRBC <0.01 k/uL Absolute nRBC <0.01 LAB DTYP DTYPE Auto Diff Performed By: #### CBCDIF, BMP #### [facility] [address] [place], [place] [address] BASIC METABOLIC PANL Collected: 09/18/2017 Status: F Source: [place] 8:37 AM [facility] REPOSITORY TYPE CODE TESTS RESULT OUT OF REFERENCE UNITS RANGE LAB GLU 74-99 mg/dL Glucose 97 Result Comment: The [place] Diabetes Association (ADA) provides guidance for cutoff values for fasting glucose and random glucose. The ADA defines fasting as no caloric intake for at least 8 hours. Fas ting plasma glucose results between 100 to 125 mg/dL indicate increased risk for diabetes (prediabetes). Fasting plasma glucose results greater than or equal to 126 mg/dL meet the criteria for diagnosis of diabetes. In the absence of unequivocal hyperglycemia, results should be confirmed by repeat testing. In a patient with classic symptoms of hyperglycemia or hyperglycemic crisis, random plasma glucose results greater than or equal to 200 mg/dL meet the criteria for diagnosis of diabetes. Reference: Standards of Medical Care in Diabetes 2016, [place] [employer] Association. Diabetes Care. 2016.39(Suppl 1). LAB BUN 7-21 mg/dL BUN 8 LAB CRET 0.58-0.96 mg/dL Creatinine 0.67 LAB NA 136-144 mmol/L Sodium 140 LAB K 3.7-5.1 mmol/L Potassium 3.9 LAB CL 97-105 mmol/L Chloride Low 96 LAB CO2 22-30 mmol/L CO2 29 LAB AGAP 9-18 mmol/L Anion Gap 15 LAB CA 8.5-10.2 mg/dL Calcium, Total 9.2 LAB GFRAA eGFR- Amer. >60 LAB GFRNAA . eGFR-All Other Races >60 Result Comment: eGFR (Estimated GFR) Units of measure: mL/min/1.73 meters squared eGFR is derived from the reexpressed MDRD Study equation using the following parameters: serum creatinine, age, gender and race. The creatinine assay has been calibrated to be traceable to IDMS. An eGFR <60 mL/min/1.73m2 for >3 months is consistent with chronic kidney disease. Refer to KDOQI guidelines for clinical interpretation. In patients with unstable renal function, e.g. those with acute kidney injury, the eGFR may not accurately reflect actual GFR. Performed By: #### CBCDIF, BMP #### [facility] [address] [place], [place] [address] Observed: 08/04/2017 Status: F Source: [place] URINE CULTURE 12:15 PM [facility] [place] REPOSITORY Sp. Request/Comment: - Specimen received in preservative Culture Result - <10,000 CFU/ml Lactose positive gram negative bacilli --> ABNORMAL ALERT Insignificant colony count. No further workup. --> ABNORMAL ALERT 10,000 - <50,000 CFU/ml Normal urogenital salome Performed By: #### URCUL #### [facility] [address] [place], [place] [address] CNOV Observed: 08/04/2017 Status: COMPLETED Source: [place] 11:45 AM [facility] [place] REPOSITORY Office Visit (WSTR) SARAY HENRY ([id number]) 1945 F Date Time Provider Department 08/04/17 11:45 AM BENNIE BERG (JESSICA) WSTR During your visit today, we recorded the following information about you: Temperature Pulse Respiration Blood pressure 98.1 degrees 74/minute 16/minute 100/60 Weight 78.5 kg Bennie Berg APRN.CNP 08/04/2017 5:14 PM Signed Subjective HPI HPI Saray Henry is a 71 year old female who presents today for CC of urinary burning, frequency. This started 3 days ago. Has tried azo. Symptoms are worsened by nothing. Risk factors hx of recurrent UTI. 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 - Internal hemorrhoids without mention of complication - Personal history of colonic polyps - Sigmoid diverticulosis Diverticulitis admitted to [facility] in Oct 2012 - Unspecified essential hypertension PAST SURGICAL HISTORY Procedure Laterality Date - COLONOSCOPY AND POLYPECTOMY 06/18/04 1 Tubular adenoma, 1 hyperplastic - COLONOSCOPY W/BX 02/03/10 - PAST SURGICAL HISTORY OF 1986 Hysterectomy - PAST SURGICAL HISTORY OF 2 heart stents ALLERGIES Macrobid [Nitrofurantoin Monohyd/M-Cryst]; Naprosyn [Naproxen]; Sulfa (Sulfonamide Antibiotics) MEDICATIONS aspirin, enteric coated (ASPIRIN, ENTERIC COATED) 81 mg EC tablet take 1 tablet by mouth once daily triamcinolone acetonide (KENALOG) 0.1 % cream Apply 1 application to affected area three times daily as needed. Apply sparingly to area for rash/itching on lower back. ketoconazole (NIZORAL) 2 % cream Apply 1 application to affected area once daily. To lower back; extend to 7 days after rash clears up. valsartan (DIOVAN) 40 mg tablet Take 1 tablet by mouth once daily. nitroglycerin sublingual (NITROQUICK) 0.4 mg SL tablet Dissolve 1 tablet under the tongue every 5 minutes as needed for Chest Pain. albuterol HFA (VENTOLIN HFA) 90 mcg/actuation inhaler Inhale 2 Puffs as instructed every 4 hours as needed for Wheezing/Shortness of Breath. Hydrochlorothiazide 12.5 mg capsule Take 12.5 mg by mouth once daily. HYDROcodone-acetaminophen (NORCO) 5-325 mg per tablet Take 1 tablet by mouth twice daily as needed for Pain. Blood Pressure Cuff - Home Use BLOOD PRESSURE CUFF FOR HOME USE. DX: I10 Hypertension, I25.10 CAD rosuvastatin (CRESTOR) 5 mg tablet Take 1 tablet by mouth daily at bedtime. L.acidophilus-bifido.longum (PROBIOTIC PEARLS) 15 mg (1 billion cell) cpDR Take 1 tablet by mouth once daily as needed. LORazepam (ATIVAN) 0.5 mg tab Take 1 tablet by mouth once daily as needed. diphenhydrAMINE (BENADRYL) 25 mg ORAL capsule as needed carvedilol (COREG) 3.125 mg tablet Take 1 tablet by mouth twice daily with meals. nicotine (NICODERM) 21 mg/24 hr Apply 1 Patch as directed every 24 hours. meclizine (ANTIVERT) 25 mg tab Take 1 tablet by mouth three times daily as needed (dizziness). dicyclomine (BENTYL) 10 mg capsule Take 1 capsule by mouth three times daily as needed. FAMILY HISTORY Problem Relation Age of Onset - history of polyps [Other] [OTHER] Mother - Coronary Artery Disease Son 44 [place] age 44 - Cancer Brother Lung Cancer age 68 - Heart Brother Stents age 52 - None Father - colon Polyps [Other] [OTHER] Sister - Alcohol/Drug Father - Cervical Cancer Paternal Grandmother Social History Substance Use Topics - Smoking status: Current Every Day Smoker Packs/day: 1.00 Years: 52.00 Types: Cigarettes Last attempt to quit: 07/17/2014 - Smokeless tobacco: Never Used Comment: She had thought about quiting - Alcohol use Yes Comment: ocass Review of Systems Constitutional: Negative for chills, fever and weight loss. Respiratory: Negative for cough, shortness of breath and wheezing. Cardiovascular: Negative for chest pain and palpitations. Gastrointestinal: Negative for abdominal pain, blood in stool, constipation, diarrhea, heartburn, melena, nausea and vomiting. Genitourinary: Positive for dysuria, frequency and urgency. Negative for flank pain and hematuria. Objective Blood pressure 100/60, pulse 74, temperature 36.7 ?C (98.1 ?F), temperature source Left Tympanic, resp. rate 16, weight 78.5 kg (173 lb). Component Latest Ref Rng AND Units 04/11/2017 Protein, Total 6.3 - 8.0 g/dL 6.8 Albumin 3.9 - 4.9 g/dL 4.0 Calcium 8.5 - 10.2 mg/dL 9.4 Bilirubin, Total 0.2 - 1.3 mg/dL 0.2 Alkaline Phosphatase 32 - 117 U/L 70 AST 13 - 35 U/L 17 Glucose 74 - 99 mg/dL 87 BUN 7 - 21 mg/dL 9 Creatinine 0.58 - 0.96 mg/dL 0.63 Sodium 136 - 144 mmol/L 138 Potassium 3.7 - 5.1 mmol/L 4.0 Chloride 97 - 105 mmol/L 95 (L) CO2 22 - 30 mmol/L 33 (H) Anion Gap 9 - 18 mmol/L 10 ALT 7 - 38 U/L 13 eGFR- >60 eGFR-All Other Races . >60 Physical Exam Constitutional: She is well-developed, well-nourished, and in no distress. Non-toxic appearance. She does not have a sickly appearance. No distress. Cardiovascular: Normal rate, regular rhythm and normal heart sounds. Pulmonary/Chest: Effort normal and breath sounds normal. Abdominal: Soft. Normal appearance and bowel sounds are normal. There is no hepatosplenomegaly. There is no tenderness. There is no CVA tenderness. Skin: Skin is warm and dry. ASSESSMENT/PLAN: 1. Dysuria - ICD9: 788.1, ICD10: R30.0 Acute -discussed options with patient, she is certain she has a UTI, requesting antibiotics today. -hx of sulfa allergy, per patient this is vague and she wants to try again, discussed red flags and reasons for urgent follow up. If rash/itching begin will switch to higher dose of keflex - UA positive for eugene esterase and proteinuria -offered oral steroids, patient declined - Patient education for prevention given - UA DIP B/O - URINE CULTURE - SULFAMETHOXAZOLE 800 MG-TRIMETHOPRIM 160 MG TABLET Prescription instructions reviewed with patient as applicable. Patient advised if symptoms do not improve or if symptoms worsen sooner, to contact the office for further evaluation by their primary care physician. Potential red flag symptoms discussed with the patient. Reviewed appropriate action plan to take if red flag symptoms occur. Patient agreeable to treatment plan. Bennie Berg APRN.JESSICA Berg APRN.JESSICA 08/04/2017 12:16 PM Signed URINARY TRACT INFECTION GENERAL INFORMATION: A urinary tract infection (UTI) is an infection of the bladder or kidneys. A bladder infection, called cystitis, is the more common type. If the infection travels up to the kidneys, it is called pyelonephritis. This can be more serious. UTIs are a common problem in women. Having sexual relations can leave a woman more susceptible to developing a UTI, but it is not sexually transmitted like gonorrhea. Some women have a problem with recurrent UTIs. INSTRUCTIONS: 1. Your doctor prescribed an antibiotic to treat the UTI. Take exactly as directed. Be sure to take all the medication prescribed, even if your symptoms disappear. If you stop treatment early, the infection may not be fully treated and the symptoms could come back again. 2. Get plenty of rest. You may take acetaminophen for fever and aches. 3. Drink 6 to 8 glasses of fluids, especially water, every day. This helps wash out germs from your urinary tract. Cranberry juice or other sources of vitamin C are also good for you. 4. Urinate often, as soon as you feel the urge. Empty your bladder completely. Urinate before and after you have sex. 5. Always wipe from front to back after going to the bathroom. This pushes germs away from your bladder, rather than towards it. 6. Showers are better than baths, and you should wash the genital area daily. Avoid bubble bath or bath oils if you do take a bath. 7. Wear underwear and pantyhose with a cotton crotch. CONTACT YOUR DOCTOR: 1. You have a temperature over 102F (38.8C) after 48 hours on medication. 2. You notice blood in your urine. 3. Your symptoms don't improve in 2 days. 4. You develop nausea, vomiting, diarrhea, or a rash. 5. You develop new or unexplained symptoms. These may be related to the medication you are taking. 6. Your symptoms return after you finish treatment. RETURN TO THE EMERGENCY DEPARTMENT IF: You develop vomiting and can't keep your medication or fluids down. Referring Provider: SELF [[id number]] Allergies As of Date: 08/04/2017 Noted Allergy Reaction MACROBID (NITROFURANTOIN MONOHYD/*02/17/2017 9 - Itching NAPROSYN (NAPROXEN) 10/01/2012 7 - Swelling SULFA (SULFONAMIDE ANTIBIOTICS) 02/03/2010 2 - Rash Date Reviewed: 08/04/2017 Reviewed by: Bennie ([facility] Fully Assessed Reason for Visit: Dysuria [1085] Primary Visit Diagnosis:Dysuria [R30.0] Order(s):UA DIP B/O [1038033] Order #: [id number] URINE CULTURE [SQURCUL] Order #: [id number] sulfamethoxazole-trimethoprim (BACTRIM DS) 800-160 mg per tabletTake 1 tablet by mouth twice daily for 5 days.Disp: 6 tabletRfl: 0 Prescriptions as of 08/04/2017 Sig: ASPIRIN 81 MG TABLET,DELAYED * take 1 tablet by mouth once d* TRIAMCINOLONE ACETONIDE 0.1 %* Apply 1 application to affect* KETOCONAZOLE 2 % TOPICAL CREAM Apply 1 application to affect* VALSARTAN 40 MG TABLET Take 1 tablet by mouth once d* NITROGLYCERIN 0.4 MG SUBLINGU* Dissolve 1 tablet under the t* ALBUTEROL SULFATE HFA 90 MCG/* Inhale 2 Puffs as instructed * HYDROCHLOROTHIAZIDE 12.5 MG C* Take 12.5 mg by mouth once da* HYDROCODONE 5 MG-ACETAMINOPHE* Take 1 tablet by mouth twice * COMPOUNDED PRESCRIPTION BLOOD PRESSURE CUFF FOR HOME * ROSUVASTATIN 5 MG TABLET Take 1 tablet by mouth daily * L.ACIDOPHILUS-BIF.LONGUM 15 M* Take 1 tablet by mouth once d* LORAZEPAM 0.5 MG TABLET Take 1 tablet by mouth once d* DIPHENHYDRAMINE 25 MG CAPSULE as needed SULFAMETHOXAZOLE 800 MG-TRIME* Take 1 tablet by mouth twice * CARVEDILOL 3.125 MG TABLET Take 1 tablet by mouth twice * NICOTINE 21 MG/24 HR DAILY TR* Apply 1 Patch as directed krystal* MECLIZINE 25 MG TABLET Take 1 tablet by mouth three * DICYCLOMINE 10 MG CAPSULE Take 1 capsule by mouth three* Problem List As Of Date 08/04/2017 Noted Resolved Personal history of colonic polyps [Z86.010] Family history of malignant neoplasm of gastroi* 12/10/2009 Diarrhea [R19.7] Internal hemorrhoids without mention of complic*INVALID FOR* Tobacco use disorder [F17.200] INVALID FOR* Anxiety [F41.9] INVALID FOR* Family history of early CAD [Z82.49] INVALID FOR* Mixed hyperlipidemia [E78.2] INVALID FOR* Essential hypertension [I10] Epigastric pain [R10.13] INVALID FOR* Dysphagia [R13.10] INVALID FOR* S/P coronary artery stent placement [Z95.5] INVALID FOR* Seborrheic keratoses [L82.1] INVALID FOR* Asthma with chronic obstructive pulmonary disea*INVALID FOR* Other instructions from your clinician: URINARY TRACT INFECTION GENERAL INFORMATION: A urinary tract infection (UTI) is an infection of the bladder or kidneys. A bladder infection, called cystitis, is the more common type. If the infection travels up to the kidneys, it is called pyelonephritis. This can be more serious. UTIs are a common problem in women. Having sexual relations can leave a woman more susceptible to developing a UTI, but it is not sexually transmitted like gonorrhea. Some women have a problem with recurrent UTIs. INSTRUCTIONS: 1. Your doctor prescribed an antibiotic to treat the UTI. Take exactly as directed. Be sure to take all the medication prescribed, even if your symptoms disappear. If you stop treatment early, the infection may not be fully treated and the symptoms could come back again. 2. Get plenty of rest. You may take acetaminophen for fever and aches. 3. Drink 6 to 8 glasses of fluids, especially water, every day. This helps wash out germs from your urinary tract. Cranberry juice or other sources of vitamin C are also good for you. 4. Urinate often, as soon as you feel the urge. Empty your bladder completely. Urinate before and after you have sex. 5. Always wipe from front to back after going to the bathroom. This pushes germs away from your bladder, rather than towards it. 6. Showers are better than baths, and you should wash the genital area daily. Avoid bubble bath or bath oils if you do take a bath. 7. Wear underwear and pantyhose with a cotton crotch. CONTACT YOUR DOCTOR: 1. You have a temperature over 102F (38.8C) after 48 hours on medication. 2. You notice blood in your urine. 3. Your symptoms don't improve in 2 days. 4. You develop nausea, vomiting, diarrhea, or a rash. 5. You develop new or unexplained symptoms. These may be related to the medication you are taking. 6. Your symptoms return after you finish treatment. RETURN TO THE EMERGENCY DEPARTMENT IF: You develop vomiting and can't keep your medication or fluids down. Prescriptions ordered this encounter Disp Refills Start End SULFAMETHOXAZOLE 800 MG-TRIMETHOPRIM* 6 ta* 0 08/04/2017 08/09/2017 Route: ORAL Sig: Take 1 tablet by mouth twice daily for 5 days. Encounter Status:Closed by BENNIE BERG CNP on 08/04/17 PROGRESS Observed: 08/04/2017 Status: COMPLETED Source: [place] 11:43 AM [facility] [place] REPOSITORY HNO ID: [id number] Author: Bennie (Jessica) Service: (none) Author Type: Nurse Practitioner Type: Progress Notes Filed: 08/04/2017 5:14 PM Note Text: Subjective HPI HPI Saray Henry is a 71 year old female who presents today for CC of urinary burning, frequency. This started 3 days ago. Has tried azo. Symptoms are worsened by nothing. Risk factors hx of recurrent UTI. 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 - Internal hemorrhoids without mention of complication - Personal history of colonic polyps - Sigmoid diverticulosis Diverticulitis admitted to [facility] in Oct 2012 - Unspecified essential hypertension PAST SURGICAL HISTORY Procedure Laterality Date - COLONOSCOPY AND POLYPECTOMY 06/18/04 1 Tubular adenoma, 1 hyperplastic - COLONOSCOPY W/BX 02/03/10 - PAST SURGICAL HISTORY OF 1986 Hysterectomy - PAST SURGICAL HISTORY OF 2 heart stents ALLERGIES Macrobid [Nitrofurantoin Monohyd/M-Cryst]; Naprosyn [Naproxen]; Sulfa (Sulfonamide Antibiotics) MEDICATIONS aspirin, enteric coated (ASPIRIN, ENTERIC COATED) 81 mg EC tablet take 1 tablet by mouth once daily triamcinolone acetonide (KENALOG) 0.1 % cream Apply 1 application to affected area three times daily as needed. Apply sparingly to area for rash/itching on lower back. ketoconazole (NIZORAL) 2 % cream Apply 1 application to affected area once daily. To lower back; extend to 7 days after rash clears up. valsartan (DIOVAN) 40 mg tablet Take 1 tablet by mouth once daily. nitroglycerin sublingual (NITROQUICK) 0.4 mg SL tablet Dissolve 1 tablet under the tongue every 5 minutes as needed for Chest Pain. albuterol HFA (VENTOLIN HFA) 90 mcg/actuation inhaler Inhale 2 Puffs as instructed every 4 hours as needed for Wheezing/Shortness of Breath. Hydrochlorothiazide 12.5 mg capsule Take 12.5 mg by mouth once daily. HYDROcodone-acetaminophen (NORCO) 5-325 mg per tablet Take 1 tablet by mouth twice daily as needed for Pain. Blood Pressure Cuff - Home Use BLOOD PRESSURE CUFF FOR HOME USE. DX: I10 Hypertension, I25.10 CAD rosuvastatin (CRESTOR) 5 mg tablet Take 1 tablet by mouth daily at bedtime. L.acidophilus-bifido.longum (PROBIOTIC PEARLS) 15 mg (1 billion cell) cpDR Take 1 tablet by mouth once daily as needed. LORazepam (ATIVAN) 0.5 mg tab Take 1 tablet by mouth once daily as needed. diphenhydrAMINE (BENADRYL) 25 mg ORAL capsule as needed carvedilol (COREG) 3.125 mg tablet Take 1 tablet by mouth twice daily with meals. nicotine (NICODERM) 21 mg/24 hr Apply 1 Patch as directed every 24 hours. meclizine (ANTIVERT) 25 mg tab Take 1 tablet by mouth three times daily as needed (dizziness). dicyclomine (BENTYL) 10 mg capsule Take 1 capsule by mouth three times daily as needed. FAMILY HISTORY Problem Relation Age of Onset - history of polyps [Other] [OTHER] Mother - Coronary Artery Disease Son 44 [place] age 44 - Cancer Brother Lung Cancer age 68 - Heart Brother Stents age 52 - None Father - colon Polyps [Other] [OTHER] Sister - Alcohol/Drug Father - Cervical Cancer Paternal Grandmother Social History Substance Use Topics - Smoking status: Current Every Day Smoker Packs/day: 1.00 Years: 52.00 Types: Cigarettes Last attempt to quit: 07/17/2014 - Smokeless tobacco: Never Used Comment: She had thought about quiting - Alcohol use Yes Comment: ocass Review of Systems Constitutional: Negative for chills, fever and weight loss. Respiratory: Negative for cough, shortness of breath and wheezing. Cardiovascular: Negative for chest pain and palpitations. Gastrointestinal: Negative for abdominal pain, blood in stool, constipation, diarrhea, heartburn, melena, nausea and vomiting. Genitourinary: Positive for dysuria, frequency and urgency. Negative for flank pain and hematuria. Objective Blood pressure 100/60, pulse 74, temperature 36.7 ?C (98.1 ?F), temperature source Left Tympanic, resp. rate 16, weight 78.5 kg (173 lb). Component Latest Ref Rng AND Units 04/11/2017 Protein, Total 6.3 - 8.0 g/dL 6.8 Albumin 3.9 - 4.9 g/dL 4.0 Calcium 8.5 - 10.2 mg/dL 9.4 Bilirubin, Total 0.2 - 1.3 mg/dL 0.2 Alkaline Phosphatase 32 - 117 U/L 70 AST 13 - 35 U/L 17 Glucose 74 - 99 mg/dL 87 BUN 7 - 21 mg/dL 9 Creatinine 0.58 - 0.96 mg/dL 0.63 Sodium 136 - 144 mmol/L 138 Potassium 3.7 - 5.1 mmol/L 4.0 Chloride 97 - 105 mmol/L 95 (L) CO2 22 - 30 mmol/L 33 (H) Anion Gap 9 - 18 mmol/L 10 ALT 7 - 38 U/L 13 eGFR- >60 eGFR-All Other Races . >60 Physical Exam Constitutional: She is well-developed, well-nourished, and in no distress. Non-toxic appearance. She does not have a sickly appearance. No distress. Cardiovascular: Normal rate, regular rhythm and normal heart sounds. Pulmonary/Chest: Effort normal and breath sounds normal. Abdominal: Soft. Normal appearance and bowel sounds are normal. There is no hepatosplenomegaly. There is no tenderness. There is no CVA tenderness. Skin: Skin is warm and dry. ASSESSMENT/PLAN: 1. Dysuria - ICD9: 788.1, ICD10: R30.0 Acute -discussed options with patient, she is certain she has a UTI, requesting antibiotics today. -hx of sulfa allergy, per patient this is vague and she wants to try again, discussed red flags and reasons for urgent follow up. If rash/itching begin will switch to higher dose of keflex - UA positive for eugene esterase and proteinuria -offered oral steroids, patient declined - Patient education for prevention given - UA DIP B/O - URINE CULTURE - SULFAMETHOXAZOLE 800 MG-TRIMETHOPRIM 160 MG TABLET Prescription instructions reviewed with patient as applicable. Patient advised if symptoms do not improve or if symptoms worsen sooner, to contact the office for further evaluation by their primary care physician. Potential red flag symptoms discussed with the patient. Reviewed appropriate action plan to take if red flag symptoms occur. Patient agreeable to treatment plan. Bennie Berg APRN.BATH MIX OPERATOR OFFICE VISIT REPORT Observed: 05/31/2017 Status: F Source: [place] 3:23 PM [facility] [address] [place] [address] OFFICE VISIT Date of Service: 05/26/17 MR#: [id number] Acct: [id number] Patient: SARAY HENRY Rep #: [id number] : 1945 Provider: Toy Silva MD Age/Sex: 71/F Location: [facility] Status: Signed Intake Intake Visit Reasons: 2 wk BP check Chief Complaint: Routine f/u Allergies NSAIDS (Non-Steroidal Anti-Inflamma Allergy (Verified 04/25/17 13:27) itching Sulfa (Sulfonamide Antibiotics) Allergy (Verified 04/25/17 13:27) Unknown Medications aspirin 81 mg tablet,delayed release 81 mg PO QDAY 01/23/17 [History Confirmed 04/25/17] hydrocodone 5 mg-acetaminophen 325 mg tablet 1 tab PO BID PRN tab 01/23/17 [History Confirmed 04/25/17] meclizine 25 mg tablet 25 mg PO TID PRN tab 01/23/17 [History Confirmed 04/25/17] nitroglycerin 0.4 mg sublingual tablet 0.4 mg SUBLINGUAL Q5M PRN 01/23/17 [History Confirmed 04/25/17] rosuvastatin 5 mg tablet 5 mg PO ONCE 01/23/17 [History Confirmed 04/25/17] valsartan 40 mg tablet 40 mg PO QDAY tab 01/23/17 [History Confirmed 04/25/17] albuterol sulfate HFA 90 mcg/actuation aerosol inhaler 2 puff INHALATION Q6H 04/25/17 [History Confirmed 04/25/17] hydrochlorothiazide 12.5 mg capsule 12.5 mg PO QDAY #90 cap 04/25/17 [Rx Confirmed 04/25/17] Assessment AND Plan Medications Discontinued: Nursing Note Patient in for BP check after stopping beta blockers. Patient has been monitoring BP at home x2 daily which are as follows... 05/11 129/72 HR 79, 110/71 HR 82; 05/12 125/65 HR 73, 130/63 HR82; 05/13 131/74 HR 89, 111/87 HR 88; 05/14 125/79 HR 83, 135/63 HR 71; 05/15 139/73 HR 87, 130/72 HR 71; 05/16 131/77 HR 83, 100/66 HR 77; 05/17 118/79 HR 97, 125/80 HR 76; 05/18 118/83 HR 91, 98/73 HR 81; 05/19 113/71 HR 93; 05/20 101/72 HR 82; 05/21 120/73 HR 91, 114/78 HR 78; 05/22 137/82 HR 81; 05/22 137/82 HR 81; 104/70 HR 81, 124/69 HR 81; 05/24 103/63 HR 81, 103/59 HR 72; 05/25124/77 HR 88, 104/67 HR 91; 05/26 117/74 HR 93. Patient states that breathing has improved since stopping beta blockers. Patient BP today 114/74 HR 76 R. Patient currently taking valsartan 40mg daily and HCTZ 12.5 daily. Any changes? 05/31/17 1523 <Electronically signed by Toy Silva MD> Date Toy Silva MD Cosigner Signature: Date (if applicable) CC: Amelia Garg CARDIOLOGY VISIT Observed: 05/12/2017 Status: F Source: [place] REPORT 2:18 PM [facility] REPOSITORY [facility] [address] [place] [address] OFFICE VISIT Date of Service: 04/25/17 MR#: [id number] Acct: [id number] Name: SARAY HENRY Rep #: [id number] : 1945 Provider: Toy Silva MD Age/Sex: 71/F Location: [facility] Status: Signed HPI HPI Details: SARAY HENRY, is a 71 F who presents to the office today for Intake Vital Signs04/25/17 Height 5 ft 5 in 04/25/17 Weight: 173 lb 04/25/17 Body Mass Index (BMI) 28.8 04/25/17 Blood Pressure 90/60 04/25/17 Respiratory Rate 18 04/25/17 Pulse Rate 78 Intake Visit Reasons: f/u Allergies NSAIDS (Non-Steroidal Anti-Inflamma Allergy (Verified 04/25/17 13:27) itching Sulfa (Sulfonamide Antibiotics) Allergy (Verified 04/25/17 13:27) Unknown Medications aspirin 81 mg tablet,delayed release 81 mg PO QDAY 01/23/17 [History Confirmed 04/25/17] hydrocodone 5 mg-acetaminophen 325 mg tablet 1 tab PO BID PRN tab 01/23/17 [History Confirmed 04/25/17] meclizine 25 mg tablet 25 mg PO TID PRN tab 01/23/17 [History Confirmed 04/25/17] nitroglycerin 0.4 mg sublingual tablet 0.4 mg SUBLINGUAL Q5M PRN 01/23/17 [History Confirmed 04/25/17] rosuvastatin 5 mg tablet 5 mg PO ONCE 01/23/17 [History Confirmed 04/25/17] valsartan 40 mg tablet 40 mg PO QDAY tab 01/23/17 [History Confirmed 04/25/17] albuterol sulfate HFA 90 mcg/actuation aerosol inhaler 2 puff INHALATION Q6H 04/25/17 [History Confirmed 04/25/17] hydrochlorothiazide 12.5 mg capsule 12.5 mg PO QDAY #90 cap 04/25/17 [Rx Confirmed 04/25/17] labetalol 100 mg tablet 50 mg PO BID #15 tab 05/10/17 [Rx] [facility] Medical History Nicotine dependence (Chronic) Ischemic cardiomyopathy (Chronic) Mixed hyperlipidemia (Chronic) Hypertension (Chronic) Atherosclerotic heart disease of [place] coronary artery without angina pectoris (Chronic) Old inferior wall myocardial infarction (Chronic) Anxiety (Chronic) Diverticulosis (Chronic) Nicotine addiction (Chronic) hemorroids (Chronic) Surgical History History of coronary artery stent placement (Chronic 07/17/14) History of partial hysterectomy (Chronic) Family History Brother CAD (coronary artery disease) mid 40's from [place] Son CAD (coronary artery disease) mid 40's from [place] Father Diabetes Social History Smoking Status: Current every day smoker tobacco type: cigarettes alcohol intake: current details: occasional ROS Const Const: Negative for fatigue, weakness, difficulty sleeping, frequent falls, headache(s) or excessive sweating Eyes Eyes: Negative for loss of peripheral vision, transient loss of vision, blurry vision or double vision ENT ENT: Negative for headache(s), dizziness, Nosebleed/epistaxis or balance problems Cardio Chest Pain: No Edema: None Muscle aches with walking: None Resp Respiratory: Negative for SOB with activity, SOB at rest, SOB orthopnea\SOB lying down or paroxysmal nocturnal dyspnea GI GI: Negative nausea or heartburn : Negative for hematuria Musc Musc: Negative for muscle aches/ myalgia, muscle weakness, joint pain or balance problems Skin Skin: Negative non-healing lesions, unusual bruising or rash Neuro Neuro: Negative for weakness, frequent falls, blurry vision, headache(s), dizziness, lightheadedness, orthostatic symptoms or double vision Dash Hematologic/Lymphatic: Negative for easy bruising Endo Endo: Negative for fatigue, excessive sweating or increased thirst/drinking Psych Psych: Negative for anxiety or depression Allergy Allergy/Immunology: Negative for hives, Negative for rash Assessment AND Plan Medications Refilled: Plan Detail Follow Up 6 Months (Ricardo) 2 Weeks (BP check) Coding Level of Care Code Off vis,est,level 3 Coding Level of Care Code Off vis,est,level 3 05/12/17 1418 <Electronically signed by Toy Silva MD> Date [facility] MD [facility] Signature: Date (if applicable) CC: OFFICE VISIT REPORT Observed: 05/11/2017 Status: F Source: [place] 7:38 AM [address] [address] OFFICE VISIT Date of Service: 05/10/17 MR#: [id number] Acct: [id number] Patient: SARAY HENRY Rep #: [id number] : 1945 Provider: Toy Silva MD Age/Sex: 71/F [place] [facility] [place] Status: Signed Intake Intake Visit Reasons: 2 wk bp ck per DJN Chief Complaint: Routine f/u Allergies NSAIDS (Non-Steroidal Anti-Inflamma Allergy (Verified 04/25/17 13:27) itching Sulfa (Sulfonamide Antibiotics) Allergy (Verified 04/25/17 13:27) Unknown Medications aspirin 81 mg tablet,delayed release 81 mg PO QDAY 01/23/17 [History Confirmed 04/25/17] hydrocodone 5 mg-acetaminophen 325 mg tablet 1 tab PO BID PRN tab 01/23/17 [History Confirmed 04/25/17] meclizine 25 mg tablet 25 mg PO TID PRN tab 01/23/17 [History Confirmed 04/25/17] nitroglycerin 0.4 mg sublingual tablet 0.4 mg SUBLINGUAL Q5M PRN 01/23/17 [History Confirmed 04/25/17] rosuvastatin 5 mg tablet 5 mg PO ONCE 01/23/17 [History Confirmed 04/25/17] valsartan 40 mg tablet 40 mg PO QDAY tab 01/23/17 [History Confirmed 04/25/17] albuterol sulfate HFA 90 mcg/actuation aerosol inhaler 2 puff INHALATION Q6H 04/25/17 [History Confirmed 04/25/17] hydrochlorothiazide 12.5 mg capsule 12.5 mg PO QDAY #90 cap 04/25/17 [Rx Confirmed 04/25/17] labetalol 100 mg tablet 50 mg PO BID tab 05/10/17 [History Confirmed 05/10/17] Assessment AND Plan Medications Discontinued: Nursing Note Pt is here for a bp check today d/t starting metoprolol 12.5 mg po twice daily. Pt has c/o positional dizziness, and her hands will tingle when she becomes dizzy. Pt denies SOB, chest discomfort, no lower extremity edema present. Sittin/60, HR 60, RR 20 Standin/62, HR 64 Marty Bills reviewed vitals and pt is to 1.) stop metoprolol, 2.) start Labetalol 50 mg po twice daily, 3.) bp check in 2 weeks. 05/11/17 0738 <Electronically signed by Marty BAH> Date Marty BAH Cosigner Signature: Date (if applicable) CC: Agustin Calista Observed: 05/01/2017 Status: F Source: [place] URINE CULTURE 3:23 PM [facility] [place] REPOSITORY Sp. Request/Comment: - Specimen received in preservative Culture Result - >=100,000 CFU/ml Escherichia coli --> ABNORMAL ALERT ORGANISM: Escherichia coli METHOD: Minimum inhibitory concentration(Vitek) Antibiotic Interp SANTA Status Ampicillin SUSCEPTIBLE 8 F Gentamicin SUSCEPTIBLE <=1 F Trimeth sulfameth SUSCEPTIBLE <=20 F Cefazolin SUSCEPTIBLE <=4 F CLSI breakpoints for therapy of uncomplicated UTI's due to E.coli, K.pneumoniae, and P.mirabilis were applied and may be used to predict the activity of oral agents(cefaclor, cefdinir, cefpodoxime, cefp rozil, cefuroxime, cephalexin, loracarbef). Ciprofloxacin SUSCEPTIBLE <=0.25 F Nitrofurantoin SUSCEPTIBLE <=16 F Cefepime SUSCEPTIBLE <=1 F Piperacillin/Tazobac SUSCEPTIBLE <=4 F Ampicillin Sulbact SUSCEPTIBLE 4 F Ceftriaxone SUSCEPTIBLE <=1 F Meropenem SUSCEPTIBLE <=0.25 F Ertapenem SUSCEPTIBLE <=0.5 F Performed By: #### URCUL #### [facility] [address] [address] PROGRESS Observed: 05/01/2017 Status: COMPLETED Source: [place] 3:21 PM [facility] [place] REPOSITORY HNO ID: [id number] Author: Xiomara Bailon CNP Service: (none) Author Type: Nurse Practitioner Type: Progress Notes Filed: 05/01/2017 3:38 PM Note Text: Subjective HPI Patient presents with: Urinary Problem: pain with urination and back pain x 6 days States hx of recurrent UTIs Review of Systems Constitutional: Negative for chills, fever and malaise/fatigue. Gastrointestinal: Negative for abdominal pain, diarrhea, nausea and vomiting. Genitourinary: Positive for dysuria. Negative for flank pain, frequency and hematuria. Denies vaginal discharge/itchiness Musculoskeletal: Positive for back pain (low dull back ache). All other systems reviewed and are negative. 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 - Internal hemorrhoids without mention of complication - Personal history of colonic polyps - Sigmoid diverticulosis Diverticulitis admitted to [facility] in Oct 2012 - Unspecified essential hypertension PAST SURGICAL HISTORY Procedure Laterality Date - COLONOSCOPY AND POLYPECTOMY 06/18/04 1 Tubular adenoma, 1 hyperplastic - COLONOSCOPY W/BX 02/03/10 - PAST SURGICAL HISTORY OF 1986 Hysterectomy - PAST SURGICAL HISTORY OF 2 heart stents ALLERGIES Macrobid [Nitrofurantoin Monohyd/M-Cryst]; Naprosyn [Naproxen]; Sulfa (Sulfonamide Antibiotics) MEDICATIONS triamcinolone acetonide (KENALOG) 0.1 % cream Apply 1 application to affected area three times daily as needed. Apply sparingly to area for rash/itching on lower back. ketoconazole (NIZORAL) 2 % cream Apply 1 application to affected area once daily. To lower back; extend to 7 days after rash clears up. carvedilol (COREG) 3.125 mg tablet Take 1 tablet by mouth twice daily with meals. valsartan (DIOVAN) 40 mg tablet Take 1 tablet by mouth once daily. nitroglycerin sublingual (NITROQUICK) 0.4 mg SL tablet Dissolve 1 tablet under the tongue every 5 minutes as needed for Chest Pain. albuterol HFA (VENTOLIN HFA) 90 mcg/actuation inhaler Inhale 2 Puffs as instructed every 4 hours as needed for Wheezing/Shortness of Breath. Hydrochlorothiazide 12.5 mg capsule Take 12.5 mg by mouth once daily. HYDROcodone-acetaminophen (NORCO) 5-325 mg per tablet Take 1 tablet by mouth twice daily as needed for Pain. Blood Pressure Cuff - Home Use BLOOD PRESSURE CUFF FOR HOME USE. DX: I10 Hypertension, I25.10 CAD nicotine (NICODERM) 21 mg/24 hr Apply 1 Patch as directed every 24 hours. rosuvastatin (CRESTOR) 5 mg tablet Take 1 tablet by mouth daily at bedtime. aspirin, enteric coated (ASPIRIN, ENTERIC COATED) 81 mg EC tablet Take 1 tablet by mouth once daily. meclizine (ANTIVERT) 25 mg tab Take 1 tablet by mouth three times daily as needed (dizziness). L.acidophilus-bifido.longum (PROBIOTIC PEARLS) 15 mg (1 billion cell) cpDR Take 1 tablet by mouth once daily as needed. dicyclomine (BENTYL) 10 mg capsule Take 1 capsule by mouth three times daily as needed. LORazepam (ATIVAN) 0.5 mg tab Take 1 tablet by mouth once daily as needed. diphenhydrAMINE (BENADRYL) 25 mg ORAL capsule as needed FAMILY HISTORY Problem Relation Age of Onset - history of polyps [Other] [OTHER] Mother - Coronary Artery Disease Son 44 [place] age 44 - Cancer Brother Lung Cancer age 68 - Heart Brother Stents age 52 - None Father - colon Polyps [Other] [OTHER] Sister - Alcohol/Drug Father - Cervical Cancer Paternal Grandmother Social History Substance Use Topics - Smoking status: Current Every Day Smoker Packs/day: 1.00 Years: 52.00 Types: Cigarettes Last attempt to quit: 07/17/2014 - Smokeless tobacco: Never Used Comment: She had thought about quiting - Alcohol use Yes Comment: ocass Objective Physical Exam Constitutional: She is well-developed, well-nourished, and in no distress. HENT: Head: Normocephalic. Eyes: Conjunctivae are normal. Neck: Normal range of motion. Cardiovascular: Normal rate, regular rhythm and normal heart sounds. Pulmonary/Chest: Effort normal and breath sounds normal. Abdominal: Soft. She exhibits no distension. There is no tenderness. There is no rebound, no guarding and no CVA tenderness. Skin: Skin is warm and dry. No rash noted. Nursing note and vitals reviewed. ASSESSMENT/PLAN: 1. Pain with urination - ICD9: 788.1, ICD10: R30.9 acute - UA positive for eugene esterase, hematuria and proteinuria - Send urine for culture - Begin treatment with Ciprofloxacin 250 mg BID for 7 days - F/u with pcp in 3-5 days or sooner if symptoms are not improving or worsening - Patient education for prevention given Prescription instructions reviewed with patient as applicable. Patient advised if symptoms do not improve or if symptoms worsen sooner, to contact their primary care physician. Potential red flag symptoms discussed with the patient. Reviewed appropriate action plan to take if red flag symptoms occur. Patient agreeable to treatment plan. Xiomara Bailon CNP CNOV Observed: 05/01/2017 Status: COMPLETED Source: [place] 2:45 PM [facility] [place] REPOSITORY Office Visit ([facility]STR) SARAY HENRY ([id number]) 1945 F Date Time Provider Department 05/01/17 2:45 PM XIOMARA BAILON (ORTHOPEDICS TEACHER) [facility] During your visit today, we recorded the following information about you: Temperature Pulse Respiration Blood pressure 97.6 degrees 78/minute 16/minute 100/62 Weight 77.6 kg Xiomara Bailon CNP, CNP 05/01/2017 3:38 PM Signed Subjective HPI Patient presents with: Urinary Problem: pain with urination and back pain x 6 days States hx of recurrent UTIs Review of Systems Constitutional: Negative for chills, fever and malaise/fatigue. Gastrointestinal: Negative for abdominal pain, diarrhea, nausea and vomiting. Genitourinary: Positive for dysuria. Negative for flank pain, frequency and hematuria. Denies vaginal discharge/itchiness Musculoskeletal: Positive for back pain (low dull back ache). All other systems reviewed and are negative. 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 - Internal hemorrhoids without mention of complication - Personal history of colonic polyps - Sigmoid diverticulosis Diverticulitis admitted to [facility] in Oct 2012 - Unspecified essential hypertension PAST SURGICAL HISTORY Procedure Laterality Date - COLONOSCOPY ANDamp; POLYPECTOMY 06/18/04 1 Tubular adenoma, 1 hyperplastic - COLONOSCOPY W/BX 02/03/10 - PAST SURGICAL HISTORY OF 1986 Hysterectomy - PAST SURGICAL HISTORY OF 2 heart stents ALLERGIES Macrobid [Nitrofurantoin Monohyd/M-Cryst]; Naprosyn [Naproxen]; Sulfa (Sulfonamide Antibiotics) MEDICATIONS triamcinolone acetonide (KENALOG) 0.1 % cream Apply 1 application to affected area three times daily as needed. Apply sparingly to area for rash/itching on lower back. ketoconazole (NIZORAL) 2 % cream Apply 1 application to affected area once daily. To lower back; extend to 7 days after rash clears up. carvedilol (COREG) 3.125 mg tablet Take 1 tablet by mouth twice daily with meals. valsartan (DIOVAN) 40 mg tablet Take 1 tablet by mouth once daily. nitroglycerin sublingual (NITROQUICK) 0.4 mg SL tablet Dissolve 1 tablet under the tongue every 5 minutes as needed for Chest Pain. albuterol HFA (VENTOLIN HFA) 90 mcg/actuation inhaler Inhale 2 Puffs as instructed every 4 hours as needed for Wheezing/Shortness of Breath. Hydrochlorothiazide 12.5 mg capsule Take 12.5 mg by mouth once daily. HYDROcodone-acetaminophen (NORCO) 5-325 mg per tablet Take 1 tablet by mouth twice daily as needed for Pain. Blood Pressure Cuff - Home Use BLOOD PRESSURE CUFF FOR HOME USE. DX: I10 Hypertension, I25.10 CAD nicotine (NICODERM) 21 mg/24 hr Apply 1 Patch as directed every 24 hours. rosuvastatin (CRESTOR) 5 mg tablet Take 1 tablet by mouth daily at bedtime. aspirin, enteric coated (ASPIRIN, ENTERIC COATED) 81 mg EC tablet Take 1 tablet by mouth once daily. meclizine (ANTIVERT) 25 mg tab Take 1 tablet by mouth three times daily as needed (dizziness). L.acidophilus-bifido.longum (PROBIOTIC PEARLS) 15 mg (1 billion cell) cpDR Take 1 tablet by mouth once daily as needed. dicyclomine (BENTYL) 10 mg capsule Take 1 capsule by mouth three times daily as needed. LORazepam (ATIVAN) 0.5 mg tab Take 1 tablet by mouth once daily as needed. diphenhydrAMINE (BENADRYL) 25 mg ORAL capsule as needed FAMILY HISTORY Problem Relation Age of Onset - history of polyps [Other] [OTHER] Mother - Coronary Artery Disease Son 44 [place] age 44 - Cancer Brother Lung Cancer age 68 - Heart Brother Stents age 52 - None Father - colon Polyps [Other] [OTHER] Sister - Alcohol/Drug Father - Cervical Cancer Paternal Grandmother Social History Substance Use Topics - Smoking status: Current Every Day Smoker Packs/day: 1.00 Years: 52.00 Types: Cigarettes Last attempt to quit: 07/17/2014 - Smokeless tobacco: Never Used Comment: She had thought about quiting - Alcohol use Yes Comment: ocass Objective Physical Exam Constitutional: She is well-developed, well-nourished, and in no distress. HENT: Head: Normocephalic. Eyes: Conjunctivae are normal. Neck: Normal range of motion. Cardiovascular: Normal rate, regular rhythm and normal heart sounds. Pulmonary/Chest: Effort normal and breath sounds normal. Abdominal: Soft. She exhibits no distension. There is no tenderness. There is no rebound, no guarding and no CVA tenderness. Skin: Skin is warm and dry. No rash noted. Nursing note and vitals reviewed. ASSESSMENT/PLAN: 1. Pain with urination - ICD9: 788.1, ICD10: R30.9 acute - UA positive for eugene esterase, hematuria and proteinuria - Send urine for culture - Begin treatment with Ciprofloxacin 250 mg BID for 7 days - F/u with pcp in 3-5 days or sooner if symptoms are not improving or worsening - Patient education for prevention given Prescription instructions reviewed with patient as applicable. Patient advised if symptoms do not improve or if symptoms worsen sooner, to contact their primary care physician. Potential red flag symptoms discussed with the patient. Reviewed appropriate action plan to take if red flag symptoms occur. Patient agreeable to treatment plan. JESSICA Spears CNP, JESSICA 05/01/2017 3:28 PM Addendum Patient Education for Female Urinary Tract Infections Possible complications: Pyelonehritis Renal abscess Expected course/prognosis: * symptoms resolve within 2-3 days after starting treatment in almost all patients * one-fourth of women with simple UTI experience a second UTI within 6 months, and half at some time during lifetime. * patients with multiple recurrent UTI and no underlying urinary tract abnormality may receive long-term prophylactic antibioitic treatment. Trimethoprim-sulfamethoxazole and nitrofurantoin common used. * women with frequent or intercourse-related UTI should empty bladder immediately before and following intercourse and consider postcoital antibiotic treament Instructions: * Maintain good hydration * Avoid sexual intercourse when symptoms present *Take antibiotic as directed * Return if symptoms not resolved or markedly improved within 48 hours * Return if fever, chills, or flank pain develop * If taking prophylactic antiobiotics, take at bedtime * Take showers instead of tub baths * Avoid feminine hygiene sprays and scented douches * Wipe urethra from front to back Please call or return to the office if you are not feeling better in 5-7 days. You can try taking OTC Uristat (pyridium) if needed for burning. Beware that it will turn your urine orange/red. The Gluten-free Diet A gluten-free diet means not eating foods that contain wheat (including spelt, triticale, and kamut), rye, and barley. The foods and products made from these grains are also not allowed. In other words, a person with celiac disease should not eat most grain, pasta, cereal, and many processed foods. Despite these restrictions, people with celiac disease can eat a well- balanced diet with a variety of foods, including gluten-free bread and pasta. For example, people with celiac disease can use potato, rice, soy, amaranth, quinoa, buckwheat, or berman flour instead of wheat flour. They can buy gluten-free bread, pasta, and other products from stores that carry organic foods, or order products from special food [place]. Gluten-free products are increasingly available from regular stores. Checking labels for ?gluten free? is important since many corn and rice products are produced in factories that also manufacture wheat products. Hidden sources of gluten include additives such as modified food starch, preservatives, and stabilizers. Wheat and wheat products are often used as thickeners, stabilizers, and texture enhancers in foods. ?Plain? meat, fish, rice, fruits, and vegetables do not contain gluten, so people with celiac disease can eat as much of these foods as they like. Recommending that people with celiac disease avoid oats is controversial because some people have been able to eat oats without having symptoms. Scientists are currently studying whether people with celiac disease can tolerate oats. Until the studies are complete, people with celiac disease should follow their physician?s or dietitian?s advice about eating oats. Examples of foods that are safe to eat and those that are not are provided in the table below. The gluten-free diet is challenging. It requires a completely new approach to eating that affects a person?s entire life. Newly diagnosed people and their families may find support groups to be particularly helpful as they learn to adjust to a new way of life. People with celiac disease have to be extremely careful about what they buy for lunch at school or work, what they purchase at the grocery store, what they eat at restaurants or parties, or what they grab for a snack. Eating out can be a challenge. If a person with celiac disease is in doubt about a menu item, ask the rip sawyer or chefs about ingredients and preparation, or if a gluten-free menu is available. Gluten is also used in some medications. One should check with the pharmacist to learn whether medications used contain gluten. Since gluten is also sometimes used as an additive in unexpected products, it is important to read all labels. If the ingredients are not listed on the product label, the horticulture teacher of the product should provide the list upon request. With practice, screening for gluten becomes second nature. The Gluten-free Diet: Some Examples In 2006, the [place] [employer] updated its recommendations for a gluten-free diet. The following chart is based on the 2006 recommendations. This list is not complete, so people with celiac disease should discuss gluten-free food choices with a dietitian or physician who specializes in celiac disease. People with celiac disease should always read food ingredient lists carefully to make sure that the food does not contain gluten. Allowed Foods Amaranth Arrowroot Buckwheat Cassava [place] Flax Mauritian rice grass Job?s tears Legumes Millet Nuts Potatoes Quinoa Rice Sago Seeds Soy Sorghum Tapioca Wild Rice [place] Foods To Avoid Wheat Including einkorn, emmer, spelt, kamut Wheat starch, wheat bran, wheat germ, cracked wheat, hydrolyzed wheat protein Barley [place] Triticale (a cross between wheat and rye) Other Wheat Products Bromated flour Durum flour Enriched flour [place] Wang flour Phosphated flour Plain flour Self-rising flour [place] White flour Processed Foods That May Contain Wheat, Barley, or [place]* Bouillon cubes Brown rice syrup Chips/potato chips Candy Cold cuts, hot dogs, salami, sausage Communion wafer Macanese fries Gravy Imitation fish Matzo Rice mixes Sauces Seasoned tortilla chips Self-basting turkey Soups Soy sauce Vegetables in sauce * Most of these foods can be found gluten-free. When in doubt, check with the food horticulture teacher. Referring Provider: SELF [200] Allergies As of Date: 05/01/2017 Noted Allergy Reaction MACROBID (NITROFURANTOIN MONOHYD/*02/17/2017 9 - Itching NAPROSYN (NAPROXEN) 10/01/2012 7 - Swelling SULFA (SULFONAMIDE ANTIBIOTICS) 02/03/2010 2 - Rash Date Reviewed: 05/01/2017 Reviewed by: Kellen Hunter Ma - Fully Assessed Reason for Visit: Urinary Problem [252] Cmt: pain with urination and back pain x 6 days Primary Visit Diagnosis:Pain with urination [R30.9] Other Visit Diagnosis:Recurrent cystitis [N30.90] Order(s):UA DIP B/O [[id number]] Order #: [id number] URINE CULTURE [SQURCUL] Order #: [id number] ciprofloxacin HCl (CIPRO) 250 mg tabletTake 1 tablet by mouth twice daily for 7 days.Disp: 14 tabletRfl: 0 Prescriptions as of 05/01/2017 Sig: TRIAMCINOLONE ACETONIDE 0.1 %* Apply 1 application to affect* KETOCONAZOLE 2 % TOPICAL CREAM Apply 1 application to affect* CARVEDILOL 3.125 MG TABLET Take 1 tablet by mouth twice * VALSARTAN 40 MG TABLET Take 1 tablet by mouth once d* NITROGLYCERIN 0.4 MG SUBLINGU* Dissolve 1 tablet under the t* ALBUTEROL SULFATE HFA 90 MCG/* Inhale 2 Puffs as instructed * HYDROCHLOROTHIAZIDE 12.5 MG C* Take 12.5 mg by mouth once da* HYDROCODONE 5 MG-ACETAMINOPHE* Take 1 tablet by mouth twice * COMPOUNDED PRESCRIPTION BLOOD PRESSURE CUFF FOR HOME * NICOTINE 21 MG/24 HR DAILY TR* Apply 1 Patch as directed krystal* ROSUVASTATIN 5 MG TABLET Take 1 tablet by mouth daily * ASPIRIN 81 MG TABLET,DELAYED * Take 1 tablet by mouth once d* MECLIZINE 25 MG TABLET Take 1 tablet by mouth three * L.ACIDOPHILUS-BIF.LONGUM 15 M* Take 1 tablet by mouth once d* DICYCLOMINE 10 MG CAPSULE Take 1 capsule by mouth three* LORAZEPAM 0.5 MG TABLET Take 1 tablet by mouth once d* DIPHENHYDRAMINE 25 MG CAPSULE as needed CIPROFLOXACIN 250 MG TABLET Take 1 tablet by mouth twice * Problem List As Of Date 05/01/2017 Noted Resolved Personal history of colonic polyps [Z86.010] Family history of malignant neoplasm of gastroi* 12/10/2009 Diarrhea [R19.7] Internal hemorrhoids without mention of complic*INVALID FOR* Tobacco use disorder [F17.200] INVALID FOR* Anxiety [F41.9] INVALID FOR* Family history of early CAD [Z82.49] INVALID FOR* Mixed hyperlipidemia [E78.2] INVALID FOR* Essential hypertension [I10] Epigastric pain [R10.13] INVALID FOR* Dysphagia [R13.10] INVALID FOR* S/P coronary artery stent placement [Z95.5] INVALID FOR* Seborrheic keratoses [L82.1] INVALID FOR* Asthma with chronic obstructive pulmonary disea*INVALID FOR* Other instructions from your clinician: Patient Education for Female Urinary Tract Infections Possible complications: Pyelonehritis Renal abscess Expected course/prognosis: * symptoms resolve within 2-3 days after starting treatment in almost all patients * one-fourth of women with simple UTI experience a second UTI within 6 months, and half at some time during lifetime. * patients with multiple recurrent UTI and no underlying urinary tract abnormality may receive long-term prophylactic antibioitic treatment. Trimethoprim-sulfamethoxazole and nitrofurantoin common used. * women with frequent or intercourse-related UTI should empty bladder immediately before and following intercourse and consider postcoital antibiotic treament Instructions: * Maintain good hydration * Avoid sexual intercourse when symptoms present *Take antibiotic as directed * Return if symptoms not resolved or markedly improved within 48 hours * Return if fever, chills, or flank pain develop * If taking prophylactic antiobiotics, take at bedtime * Take showers instead of tub baths * Avoid feminine hygiene sprays and scented douches * Wipe urethra from front to back Please call or return to the office if you are not feeling better in 5-7 days. You can try taking OTC Uristat (pyridium) if needed for burning. Beware that it will turn your urine orange/red. The Gluten-free Diet A gluten-free diet means not eating foods that contain wheat (including spelt, triticale, and kamut), rye, and barley. The foods and products made from these grains are also not allowed. In other words, a person with celiac disease should not eat most grain, pasta, cereal, and many processed foods. Despite these restrictions, people with celiac disease can eat a well-balanced diet with a variety of foods, including gluten-free bread and pasta. For example, people with celiac disease can use potato, rice, soy, amaranth, quinoa, buckwheat, or berman flour instead of wheat flour. They can buy gluten-free bread, pasta, and other products from stores that carry organic foods, or order products from [employer]. Gluten-free products are increasingly available from regular stores. Checking labels for ?gluten free? is important since many corn and rice products are produced in factories that also manufacture wheat products. Hidden sources of gluten include additives such as modified food starch, preservatives, and stabilizers. Wheat and wheat products are often used as thickeners, stabilizers, and texture enhancers in foods. ?Plain? meat, fish, rice, fruits, and vegetables do not contain gluten, so people with celiac disease can eat as much of these foods as they like. Recommending that people with celiac disease avoid oats is controversial because some people have been able to eat oats without having symptoms. Scientists are currently studying whether people with celiac disease can tolerate oats. Until the studies are complete, people with celiac disease should follow their physician?s or dietitian?s advice about eating oats. Examples of foods that are safe to eat and those that are not are provided in the table below. The gluten-free diet is challenging. It requires a completely new approach to eating that affects a person?s entire life. Newly diagnosed people and their families may find support groups to be particularly helpful as they learn to adjust to a new way of life. People with celiac disease have to be extremely careful about what they buy for lunch at school or work, what they purchase at the grocery store, what they eat at restaurants or parties, or what they grab for a snack. Eating out can be a challenge. If a person with celiac disease is in doubt about a menu item, ask the rip sawyer or chefs about ingredients and preparation, or if a gluten- free menu is available. Gluten is also used in some medications. One should check with the pharmacist to learn whether medications used contain gluten. Since gluten is also sometimes used as an additive in unexpected products, it is important to read all labels. If the ingredients are not listed on the product label, the horticulture teacher of the product should provide the list upon request. With practice, screening for gluten becomes second nature. The Gluten-free Diet: Some Examples In 2006, the [place] [employer] updated its recommendations for a gluten-free diet. The following chart is based on the 2006 recommendations. This list is not complete, so people with celiac disease should discuss gluten-free food choices with a dietitian or physician who specializes in celiac disease. People with celiac disease should always read food ingredient lists carefully to make sure that the food does not contain gluten. Allowed Foods Amaranth Arrowroot Buckwheat Cassava [place]den Flax Mauritian rice grass Job?s tears Legumes Millet Nuts Potatoes Quinoa Rice Sago Seeds Soy Sorghum Tapioca Wild Rice [place] Foods To Avoid Wheat Including einkorn, emmer, spelt, kamut Wheat starch, wheat bran, wheat germ, cracked wheat, hydrolyzed wheat protein Barley [place] Triticale (a cross between wheat and rye) Other Wheat Products Bromated flour Durum flour Enriched flour [place] Wang flour Phosphated flour Plain flour Self-rising flour [place] White flour Processed Foods That May Contain Wheat, Barley, or [place]* Bouillon cubes Brown rice syrup Chips/potato chips Candy Cold cuts, hot dogs, salami, sausage Communion wafer Macanese fries Gravy Imitation fish Matzo Rice mixes Sauces Seasoned tortilla chips Self-basting turkey Soups Soy sauce Vegetables in sauce * Most of these foods can be found gluten-free. When in doubt, check with the food horticulture teacher. Prescriptions ordered this encounter Disp Refills Start End CIPROFLOXACIN 250 MG TABLET 14 t* 0 05/01/2017 05/08/2017 Route: ORAL Sig: Take 1 tablet by mouth twice daily for 7 days. Medications Discontinued During This Encounter ciprofloxacin HCl (CIPRO) 250 mg tab* 14 t* 0 03/02/2017 05/01/2017 Route: ORAL Sig: Take 1 tablet by mouth twice daily for 7 days. Disc: Reason for discontinue is not on file. Disposition: Return if symptoms worsen or fail to improve. Follow-up and Disposition History Recorded Encounter Status:Closed by XIOMARA BAILON on 05/01/17 CARDIOLOGY VISIT Observed: 04/25/2017 Status: F Source: [place] REPORT 1:50 PM [facility] REPOSITORY [facility] [address] [place] [address] OFFICE VISIT Date of Service: 04/25/17 MR#: [id number] Acct: [id number] Name: SARAY HENRY Rep #: [id number] : 1945 Provider: Toy Silva MD Age/Sex: 71/F Location: [facility] Status: Signed HPI HPI Chief Complaint: Routine f/u Details: Chief Complaint: CAD, est with local inspector precision Details: SARAY HENRY, is a 71 F with a history of hypertension, hypercholesterolemia, coronary artery disease status post inferior wall myocardial infarction with emergent angioplasty on 07/17/14 at [facility] with drug-eluting stents 2 to the RCA. At that time she received what appears to be 3.5X 28 Xience BRENT in the proximal RCA and a 3.5X 38 Xience alpine drug-eluting stent drug-eluting to the RCA. At that time her EF was 40-45%, and her LAD had a 40% diffuse stenosis, mild disease in her ramus intermedius, 40% left circumflex stenosis. At that time, the patient had severe substernal chest pressure, initially came to [facility], and then was transferred to [facility]. Patient has not had a repeat catheterization since that time. In addition she is a lifelong smoker, and has been smoking since age 18 and continues to do so. Her most recent echocardiogram dated 08/15/14 showed an EF of 40-45% with stage I diastolic dysfunction. RVSP was not noted. Patient formally saw Dr. Sofy Mace in [place], and was referred for establishment of care as well as dyspnea on exertion. According to the patient, on January 21, 2018 in the afternoon she developed similar substernal chest pressure, which was radiating down her left arm and into her neck, similar to her previous angina, took 2 sublingual nitroglycerin and it resolved. Her Plavix was discontinued about 1 year ago by her primary inspector precision. Prior to that and since that time the patient has had progressively worsening dyspnea on exertion and shortness of breath. She has had no exertional anginal symptoms however. Patient initially completed cardiac rehab when she had her UT but very soon after that developed severe vertigo and was unable to exercise. Patient underwent debridement echocardiogram on 04/20/17, which was negative for inducible ischemia. In addition she underwent pulmonary function tests which demonstrated mildly reversible severe COPD with a DLCO of 48%. She was offered consultation with Dr. Mendoza but has thus far declined. In addition she underwent 2D echo with Doppler in March 2017 showed LV function of 65% and an RVSP of 25 mmHg. Last visit the patient has been doing very well and has had no further chest pain symptoms. She is taking a new inhaler, which is markedly improved her shortness of breath. Her main complaint is fatigue, and tiredness ever since she has been placed on Coreg and valsartan. Unfortunately she continues to smoke cigarettes. In our office today her blood pressure is 90/60, pulse is 68 and regular. Her physical exam demonstrates clear lungs bilaterally, regular rate and rhythm, normal S1/S2, no S3-S4. She has no edema. Her lipids as of 04/11/17 show an HDL of 43 and an LDL of 69. EKG on previous visit demonstrates normal sinus rhythm, old inferior/posterior wall myocardial infarction, no acute changes. Intake Vital Signs04/25/17 Height 5 ft 5 in 04/25/17 Weight: 173 lb 04/25/17 Body Mass Index (BMI) 28.8 04/25/17 Blood Pressure 90/60 04/25/17 Respiratory Rate 18 04/25/17 Pulse Rate 78 Intake Visit Reasons: f/u Allergies NSAIDS (Non-Steroidal Anti-Inflamma Allergy (Verified 04/25/17 13:27) itching Sulfa (Sulfonamide Antibiotics) Allergy (Verified 04/25/17 13:27) Unknown Medications aspirin 81 mg tablet,delayed release 81 mg PO QDAY 01/23/17 [History Confirmed 04/25/17] hydrocodone 5 mg-acetaminophen 325 mg tablet 1 tab PO BID PRN tab 01/23/17 [History Confirmed 04/25/17] meclizine 25 mg tablet 25 mg PO TID PRN tab 01/23/17 [History Confirmed 04/25/17] nitroglycerin 0.4 mg sublingual tablet 0.4 mg SUBLINGUAL Q5M PRN 01/23/17 [History Confirmed 04/25/17] rosuvastatin 5 mg tablet 5 mg PO ONCE 01/23/17 [History Confirmed 04/25/17] valsartan 40 mg tablet 40 mg PO QDAY tab 01/23/17 [History Confirmed 04/25/17] albuterol sulfate HFA 90 mcg/actuation aerosol inhaler 2 puff INHALATION Q6H 04/25/17 [History Confirmed 04/25/17] hydrochlorothiazide 12.5 mg capsule 12.5 mg PO QDAY #90 cap 04/25/17 [Rx Confirmed 04/25/17] metoprolol tartrate 25 mg tablet 12.5 mg PO BID #15 tab 04/25/17 [Rx Confirmed 04/25/17] [facility] Medical History Nicotine dependence (Chronic) Ischemic cardiomyopathy (Chronic) Mixed hyperlipidemia (Chronic) Hypertension (Chronic) Atherosclerotic heart disease of [place] coronary artery without angina pectoris (Chronic) Old inferior wall myocardial infarction (Chronic) Anxiety (Chronic) Diverticulosis (Chronic) Nicotine addiction (Chronic) hemorroids (Chronic) Surgical History History of coronary artery stent placement (Chronic 07/17/14) History of partial hysterectomy (Chronic) Family History Brother CAD (coronary artery disease) mid 40's from [place] Son CAD (coronary artery disease) mid 40's from [place] Father Diabetes Social History Smoking Status: Current every day smoker tobacco type: cigarettes alcohol intake: current details: occasional ROS Const Const: Positive for fatigue and weakness; negative for difficulty sleeping, excessive sweating, frequent falls or headache(s) Eyes Eyes: Negative for loss of peripheral vision, transient loss of vision, blurry vision or double vision ENT ENT: Negative for Nosebleed/epistaxis, balance problems, headache(s) or dizziness Cardio Chest Pain: No Edema: None Muscle aches with walking: None Resp Respiratory: Positive for SOB with activity (When climbing stairs. Admits since starting HCTZ, breathing is better); negative for SOB at rest, SOB orthopnea\SOB lying down or paroxysmal nocturnal dyspnea GI GI: Negative nausea or heartburn : Negative for hematuria Musc Musc: Negative for muscle aches/ myalgia, muscle weakness, joint pain or balance problems Skin Skin: Negative non-healing lesions, unusual bruising or rash Neuro Neuro: Positive for weakness; negative for frequent falls, blurry vision, headache(s), dizziness, lightheadedness, orthostatic symptoms or double vision Dash Hematologic/Lymphatic: Negative for easy bruising Endo Endo: Positive for fatigue; negative for excessive sweating or increased thirst/drinking Psych Psych: Negative for anxiety or depression Allergy Allergy/Immunology: Negative for hives, Negative for rash Cardiology Exam Const Appearance: cooperative, healthy appearing and no acute distress Nutritional Appearance: well nourished Orientation: alert, oriented x3 and oriented to person Head Head: normal to inspection, atraumatic and normocephalic Nose: external nose normal Face and Sinus: face symmetric Mouth: oral mucosae normal Eyes General: appearance normal, both eyes and all related structures Eyelids: eyelids normal Conjunctivae: conjunctivae normal Pupils: PERRL and normal by confrontation EOM: EOM intact bilaterally Neck Neck: normal visual inspection and full ROM Carotids: normal carotid upstroke Chest Chest inspection: normal inspection of the chest Auscultation: Bilateral: Clear to Auscultation Cardio Palpation: normal PMI Rate: regular rate Rhythm: regular rhythm Heart sounds: S1 normal and S2 normal GI GI: normal to inspection, no hepatosplenomegaly and bowel sounds present Neuro General: alert, oriented x3, awake, CN's II-XI intact bilaterally and moves all extremities Skin Skin: no rashes or lesions noted Extremities Pulses: Normal: Right Femoral Pulse, Left Femoral Pulse, Right Dorsalis Pedis Pulse, Left Dorsalis Pedis Pulse, Right Posterior Tibial Pulse, Left Posterior Tibial Pulse, Right Radial Pulse, Left Radial Pulse Lower Extremity Edema: None: Bilateral Psych Psychological: normal affect Assessment AND Plan 1. Atherosclerotic heart disease of [place] coronary artery without angina pectoris I25.10 Plan 1. Coronary artery disease: No further to pain symptoms, her stress test is negative, and her echo shows normal LV function and normal pulmonary pressures. I recommended that we discontinue her Coreg as this most likely is contributing to her severe fatigue and possible reactive airway disease. We will switch her to Lopressor 12.5 mg p.o. twice daily, continue valsartan 40 mg a day and hydrochlorothiazide 12.5 mg daily. She will return in 2 weeks time for a blood pressure check. 2. Mixed hyperlipidemia E78.2 Plan 2. Hyperlipidemia: Her LDL and HDL cholesterol are at goal. Continue Crestor. 3. Nicotine dependence F17.200 Plan 3. Tobacco cessation: I had a long and thorough discussion with the patient regarding tobacco cessation, and have strongly recommended that she discontinue all tobacco products. I have offered the option of seeing Dr. Mendoza consultation but she has declined. Continue inhaler therapy. 4. Return office in This note was generated using a voice recognition system and there may be incorrect words, spelling or punctuation that were not noted when reviewing the office note prior to saving. Plan Detail Other Medications New: Refilled: Follow Up 6 Months (Ricardo) 2 Weeks (BP check) Coding Level of Care Code Off vis,est,level 3 Diagnoses Atherosclerotic heart disease of [place] coronary artery without angina pectoris I25.10 Mixed hyperlipidemia E78.2 Nicotine dependence F17.200 Coding Level of Care Code Off vis,est,level 3 Diagnoses Atherosclerotic heart disease of [place] coronary artery without angina pectoris I25.10 Mixed hyperlipidemia E78.2 Nicotine dependence F17.200 04/25/17 1350 <Electronically signed by Toy Silva MD> Date Toy Silva MD [facility] Signature: Date (if applicable) CC: STRESS TEST ECHO W/O Observed: 04/20/2017 Status: F Source: [facility] 4:57 PM [facility] REPOSITORY [facility] Cardiovascular Services [address] [place] [address] Stress Test Echo w/o Contrast MR#: [id number] Acct: [id number] Name: SARAY HENRY Rep #: [id number] : 1945 71 From: Toy Silva MD Primary Care: Luis Smart MD Status: REG CLI Ordering Dr: Toy Silva MD Sex: F C Reason For Study: Chest Pain, CM, SOB Stress Results Protocol: Dobutamine Stress Echocardiogram Maximum Predicted HR: 150 bpm Target HR: 128 bpm% Maximum Predicted HR: 87 % DurationHeart Rate Stage (mm:ss) (bpm) BPDos e BASELINE 73 128/75 DSE- 10 MCG 3:11 75 142/7610.00 DSE- 20 MCG 3:12 12 3 154/8120.00 DSE- 30 MCG 2:02 13 0 138/8530.00 RECOVERY 98 94/64 Stress Duration: 8:25 mm:ss Maximum Stress HR: 130 bpm Baseline Echocardiogram Findings The estimated ejection fraction is 65 %. Stress Echo Wall motion Data Resting WMIntermediate WMStress WM Resting Wall Motion Wall Motion Stress No regional wall motion No regional wall motion abnormalities noted. abnormalities noted. EKG Data Normal intervals are noted. The patient was titrated from 10 mcg to a maximun of 30 mcg of dobutamine during the stress. The maximum heart rate attained was 130 beats per minute. This was 86% of maximum predicted heart rate. During dobutamine infusion, there were no ST or T wave changes noted to suggest ischemia. No arrhythmias noted. Interpretation Summary The estimated ejection fraction is 65 %. The patient was titrated from 10 mcg to a maximun of 30 mcg of dobutamine during the stress. Normal adequate dobutamine echocardiogram. Negative for ischemia by EKG and echocardiographic criteria. No anginal symptoms noted. No arrhythmias noted. Appropriate blood pressure response to dobutamine. Test terminated due to attainment of target heart rate. Patient unable to keep up with treadmill initially so was converted to dobutamine echocardiogram. Final LVEF is 75%. Patient tolerated procedure well no complications. Ordering Physician: Toy Silva Referring Physician: Toy Silva Performed By: Radha Mitchell, JAMICS, RVT 04/20/177 Date Toy Silva MD CC: Toy Silva MD; Luis Smart MD Date Dictated: 04/20/17 1340 Date Transcribed: 04/20/171656 Manager Library: Signed PROGRESS Observed: 04/19/2017 Status: COMPLETED Source: [place] 4:09 PM [facility] [place] REPOSITORY HNO ID: [id number] Author: Luis Smart Service: (none) Author Type: Physician Type: Progress Notes Filed: 05/05/2017 12:18 AM Note Text: Patient presents with: 4 mo f/up SUBJECTIVE: Saray Henry is a 71 year old year old lady here today for 4 month follow up appointment for review of medical conditions. PFTs in February showed severe reversible obstruction. No inhaler given. SOB better since February. Denies symptoms of excessive thirst or increased frequency of urination, chest pain or dyspnea , numbness, tingling or pain in extremities, new or unusual visual symptoms and low sugar/hypoglycemic reactions 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 - Internal hemorrhoids without mention of complication - Personal history of colonic polyps - Sigmoid diverticulosis Diverticulitis admitted to [facility] in Oct 2012 - Unspecified essential hypertension Current Outpatient Prescriptions: Hydrochlorothiazide 12.5 mg capsule Take 12.5 mg by mouth once daily. nitroglycerin sublingual (NITROQUICK) 0.4 mg SL tablet Dissolve 1 tablet under the tongue every 5 minutes as needed for Chest Pain. HYDROcodone-acetaminophen (NORCO) 5-325 mg per tablet Take 1 tablet by mouth twice daily as needed for Pain. Blood Pressure Cuff - Home Use BLOOD PRESSURE CUFF FOR HOME USE. DX: I10 Hypertension, I25.10 CAD nicotine (NICODERM) 21 mg/24 hr Apply 1 Patch as directed every 24 hours. rosuvastatin (CRESTOR) 5 mg tablet Take 1 tablet by mouth daily at bedtime. aspirin, enteric coated (ASPIRIN, ENTERIC COATED) 81 mg EC tablet Take 1 tablet by mouth once daily. meclizine (ANTIVERT) 25 mg tab Take 1 tablet by mouth three times daily as needed (dizziness). carvedilol (COREG) 3.125 mg tablet Take 1 tablet by mouth twice daily with meals. valsartan (DIOVAN) 40 mg tablet Take 1 tablet by mouth once daily. L.acidophilus-bifido.longum (PROBIOTIC PEARLS) 15 mg (1 billion cell) cpDR Take 1 tablet by mouth once daily as needed. dicyclomine (BENTYL) 10 mg capsule Take 1 capsule by mouth three times daily as needed. triamcinolone acetonide (KENALOG) 0.1 % cream Apply 1 application to affected area three times daily as needed. Apply sparingly to area for rash/itching on lower back. ketoconazole (NIZORAL) 2 % cream Apply 1 application to affected area once daily. To lower back; extend to 7 days after rash clears up. LORazepam (ATIVAN) 0.5 mg tab Take 1 tablet by mouth once daily as needed. diphenhydrAMINE (BENADRYL) 25 mg ORAL capsule as needed No current facility-administered medications for this visit. OBJECTIVE: BP 132/72 (BP Site: Left Arm, BP Position: Sitting, BP Cuff Size: Regular Adult) Pulse 72 Resp 16 Wt 77.1 kg (170 lb) BMI 28.29 kg/m2 Patient is alert, oriented times 3, no apparent distress, affect is bright, reactive. Last 5 Encounter BP Readings: Date: BP: 04/19/2017 132/72 03/02/2017 98/64 02/17/2017 100/62 12/09/2016 100/70 09/22/2016 120/80 Last 5 Encounter Wt Readings: Date: Wt: 04/19/2017 77.1 kg (170 lb) 03/02/2017 77.6 kg (171 lb) 02/17/2017 79.2 kg (174 lb 9.6 oz) 12/09/2016 78 kg (172 lb) 09/22/2016 77.6 kg (171 lb) Heart: Regular rate, rhythm, no murmurs, gallops, rubs. Lungs: Clear to auscultation, bilaterally, breathing non labored. Ext: No cyanosis, clubbing, or edema. Reviewed ASSESSMENT AND PLAN: Encounter Diagnosis ICD-10-CM 1. Essential hypertension I10 carvedilol (COREG) 3.125 mg tablet 2. Coronary artery disease involving [place] coronary artery of [place] heart without angina pectoris I25.10 nitroglycerin sublingual (NITROQUICK) 0.4 mg SL tablet 3. Tobacco use disorder F17.200 4. S/P coronary artery stent placement Z95.5 5. Mixed hyperlipidemia E78.2 6. Asthma with chronic obstructive pulmonary disease (COPD) ([facility]) J44.9 albuterol HFA (VENTOLIN HFA) 90 mcg/actuation inhaler 7. Bunion, right M21.611 CONSULT TO PODIATRY Above issues addressed with patient. Patient involved in shared decision making for management of her medical issues. History and medications reviewed. Epic updated as needed Refills taken care of and meds adjusted as indicated after reviewed history, exam and labs. Health Maintenance reviewed. Updated record and/or ordered tests as recorded. Encouraged on efforts at healthy diet and regular exercise and adequate sleep. Needs to keep working on diet and exercise with lifestyle changes for effective weight loss. The majority of the visit was spent counseling and/or coordinating care for the patient. Uigr-am-pwat time was at least 25 minutes. Luis Smart MD CNOV Observed: 04/19/2017 Status: COMPLETED Source: [place] 3:40 PM [facility] REPOSITORY Office Visit (INTMWS) SARAY HENRY ([id number]) 1945 F Date Time Provider Department 04/19/17 3:40 PM LUIS [facility] INTMWS During your visit today, we recorded the following information about you: Pulse Respiration Blood pressure Weight 72/minute 16/minute 132/72 77.1 kg Luis mSart MD 05/05/2017 12:18 AM Signed Patient presents with: 4 mo f/up SUBJECTIVE: Saray Henry is a 71 year old year old lady here today for 4 month follow up appointment for review of medical conditions. PFTs in February showed severe reversible obstruction. No inhaler given. SOB better since February. Denies symptoms of excessive thirst or increased frequency of urination, chest pain or dyspnea , numbness, tingling or pain in extremities, new or unusual visual symptoms and low sugar/hypoglycemic reactions 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 - Internal hemorrhoids without mention of complication - Personal history of colonic polyps - Sigmoid diverticulosis Diverticulitis admitted to [facility] in Oct 2012 - Unspecified essential hypertension Current Outpatient Prescriptions: Hydrochlorothiazide 12.5 mg capsule Take 12.5 mg by mouth once daily. nitroglycerin sublingual (NITROQUICK) 0.4 mg SL tablet Dissolve 1 tablet under the tongue every 5 minutes as needed for Chest Pain. HYDROcodone-acetaminophen (NORCO) 5-325 mg per tablet Take 1 tablet by mouth twice daily as needed for Pain. Blood Pressure Cuff - Home Use BLOOD PRESSURE CUFF FOR HOME USE. DX: I10 Hypertension, I25.10 CAD nicotine (NICODERM) 21 mg/24 hr Apply 1 Patch as directed every 24 hours. rosuvastatin (CRESTOR) 5 mg tablet Take 1 tablet by mouth daily at bedtime. aspirin, enteric coated (ASPIRIN, ENTERIC COATED) 81 mg EC tablet Take 1 tablet by mouth once daily. meclizine (ANTIVERT) 25 mg tab Take 1 tablet by mouth three times daily as needed (dizziness). carvedilol (COREG) 3.125 mg tablet Take 1 tablet by mouth twice daily with meals. valsartan (DIOVAN) 40 mg tablet Take 1 tablet by mouth once daily. L.acidophilus-bifido.longum (PROBIOTIC PEARLS) 15 mg (1 billion cell) cpDR Take 1 tablet by mouth once daily as needed. dicyclomine (BENTYL) 10 mg capsule Take 1 capsule by mouth three times daily as needed. triamcinolone acetonide (KENALOG) 0.1 % cream Apply 1 application to affected area three times daily as needed. Apply sparingly to area for rash/itching on lower back. ketoconazole (NIZORAL) 2 % cream Apply 1 application to affected area once daily. To lower back; extend to 7 days after rash clears up. LORazepam (ATIVAN) 0.5 mg tab Take 1 tablet by mouth once daily as needed. diphenhydrAMINE (BENADRYL) 25 mg ORAL capsule as needed No current facility-administered medications for this visit. OBJECTIVE: BP 132/72 (BP Site: Left Arm, BP Position: Sitting, BP Cuff Size: Regular Adult) Pulse 72 Resp 16 Wt 77.1 kg (170 lb) BMI 28.29 kg/m2 Patient is alert, oriented times 3, no apparent distress, affect is bright, reactive. Last 5 Encounter BP Readings: Date: BP: 04/19/2017 132/72 03/02/2017 98/64 02/17/2017 100/62 12/09/2016 100/70 09/22/2016 120/80 Last 5 Encounter Wt Readings: Date: Wt: 04/19/2017 77.1 kg (170 lb) 03/02/2017 77.6 kg (171 lb) 02/17/2017 79.2 kg (174 lb 9.6 oz) 12/09/2016 78 kg (172 lb) 09/22/2016 77.6 kg (171 lb) Heart: Regular rate, rhythm, no murmurs, gallops, rubs. Lungs: Clear to auscultation, bilaterally, breathing non labored. Ext: No cyanosis, clubbing, or edema. Reviewed ASSESSMENT AND PLAN: Encounter Diagnosis ICD-10-CM 1. Essential hypertension I10 carvedilol (COREG) 3.125 mg tablet 2. Coronary artery disease involving [place] coronary artery of [place] heart without angina pectoris I25.10 nitroglycerin sublingual (NITROQUICK) 0.4 mg SL tablet 3. Tobacco use disorder F17.200 4. S/P coronary artery stent placement Z95.5 5. Mixed hyperlipidemia E78.2 6. Asthma with chronic obstructive pulmonary disease (COPD) ([facility]) J44.9 albuterol HFA (VENTOLIN HFA) 90 mcg/actuation inhaler 7. Bunion, right M21.611 CONSULT TO PODIATRY Above issues addressed with patient. Patient involved in shared decision making for management of her medical issues. History and medications reviewed. Epic updated as needed Refills taken care of and meds adjusted as indicated after reviewed history, exam and labs. Health Maintenance reviewed. Updated record and/or ordered tests as recorded. Encouraged on efforts at healthy diet and regular exercise and adequate sleep. Needs to keep working on diet and exercise with lifestyle changes for effective weight loss. The majority of the visit was spent counseling and/or coordinating care for the patient. Odhj-jt-xicn time was at least 25 minutes. Luis Smart MD Referring Provider: LUIS SMART [[id number]] Allergies As of Date: 04/19/2017 Noted Allergy Reaction MACROBID (NITROFURANTOIN MONOHYD/*02/17/2017 9 - Itching NAPROSYN (NAPROXEN) 10/01/2012 7 - Swelling SULFA (SULFONAMIDE ANTIBIOTICS) 02/03/2010 2 - Rash Date Reviewed: 04/19/2017 Reviewed by: Tyree Boswell - Fully Assessed Reason for Visit: 4 mo f/up [Other] Primary Visit Diagnosis:Essential hypertension [I10] Other Visit Diagnoses:Coronary artery disease involving [place] coronary artery of [place] heart without angina pectoris [I25.10] Tobacco use disorder [F17.200] S/P coronary artery stent placement [Z95.5] Mixed hyperlipidemia [E78.2] Asthma with chronic obstructive pulmonary disease (COPD) ([facility]) [J44.9] Bunion, right [M21.611] Order(s):triamcinolone acetonide (KENALOG) 0.1 % creamApply 1 application to affected area three times daily as needed. Apply sparingly to area for rash/itching on lower back.Disp: 45 gRfl: 0 ketoconazole (NIZORAL) 2 % creamApply 1 application to affected area once daily. To lower back; extend to 7 days after rash clears up.Disp: 30 gRfl: 0 carvedilol (COREG) 3.125 mg tabletTake 1 tablet by mouth twice daily with meals.Disp: 180 tabletRfl: 3 valsartan (DIOVAN) 40 mg tabletTake 1 tablet by mouth once daily.Disp: 90 tabletRfl: 3 nitroglycerin sublingual (NITROQUICK) 0.4 mg SL tabletDissolve 1 tablet under the tongue every 5 minutes as needed for Chest Pain.Disp: 1 Bottle of 25Rfl: 2 albuterol HFA (VENTOLIN HFA) 90 mcg/actuation inhalerInhale 2 Puffs as instructed every 4 hours as needed for Wheezing/Shortness of Breath.Disp: 1 InhalerRfl: 0 CONSULT TO PODIATRY [9749] Order #: [id number]: 1 Prescriptions as of 04/19/2017 Sig: TRIAMCINOLONE ACETONIDE 0.1 %* Apply 1 application to affect* KETOCONAZOLE 2 % TOPICAL CREAM Apply 1 application to affect* CARVEDILOL 3.125 MG TABLET Take 1 tablet by mouth twice * VALSARTAN 40 MG TABLET Take 1 tablet by mouth once d* NITROGLYCERIN 0.4 MG SUBLINGU* Dissolve 1 tablet under the t* HYDROCHLOROTHIAZIDE 12.5 MG C* Take 12.5 mg by mouth once da* HYDROCODONE 5 MG-ACETAMINOPHE* Take 1 tablet by mouth twice * COMPOUNDED PRESCRIPTION BLOOD PRESSURE CUFF FOR HOME * NICOTINE 21 MG/24 HR DAILY TR* Apply 1 Patch as directed krystal* ROSUVASTATIN 5 MG TABLET Take 1 tablet by mouth daily * ASPIRIN 81 MG TABLET,DELAYED * Take 1 tablet by mouth once d* MECLIZINE 25 MG TABLET Take 1 tablet by mouth three * L.ACIDOPHILUS-BIF.LONGUM 15 M* Take 1 tablet by mouth once d* DICYCLOMINE 10 MG CAPSULE Take 1 capsule by mouth three* LORAZEPAM 0.5 MG TABLET Take 1 tablet by mouth once d* DIPHENHYDRAMINE 25 MG CAPSULE as needed ALBUTEROL SULFATE HFA 90 MCG/* Inhale 2 Puffs as instructed * Problem List As Of Date 04/19/2017 Noted Resolved Personal history of colonic polyps [Z86.010] Family history of malignant neoplasm of gastroi* 12/10/2009 Diarrhea [R19.7] Internal hemorrhoids without mention of complic*INVALID FOR* Tobacco use disorder [F17.200] INVALID FOR* Anxiety [F41.9] INVALID FOR* Family history of early CAD [Z82.49] INVALID FOR* Mixed hyperlipidemia [E78.2] INVALID FOR* Essential hypertension [I10] Epigastric pain [R10.13] INVALID FOR* Dysphagia [R13.10] INVALID FOR* S/P coronary artery stent placement [Z95.5] INVALID FOR* Seborrheic keratoses [L82.1] INVALID FOR* Asthma with chronic obstructive pulmonary disea*INVALID FOR* Prescriptions ordered this encounter Disp Refills Start End TRIAMCINOLONE ACETONIDE 0.1 % TOPICA* 45 g 0 04/19/2017 Route: TOPICAL Sig: Apply 1 application to affected area three times daily as needed. Apply sparingly to area for rash/itching on lower back. KETOCONAZOLE 2 % TOPICAL CREAM 30 g 0 04/19/2017 Route: TOPICAL Sig: Apply 1 application to affected area once daily. To lower back; extend to 7 days after rash clears up. CARVEDILOL 3.125 MG TABLET 180 * 3 04/19/2017 Cmt: Please keep on file till needs filled Route: ORAL Sig: Take 1 tablet by mouth twice daily with meals. VALSARTAN 40 MG TABLET 90 t* 3 04/19/2017 Cmt: Please keep on file till needs filled Route: ORAL Sig: Take 1 tablet by mouth once daily. NITROGLYCERIN 0.4 MG SUBLINGUAL TABL* 1 Richard* 2 04/19/2017 Route: SUBLINGUAL Sig: Dissolve 1 tablet under the tongue every 5 minutes as needed for Chest Pain. ALBUTEROL SULFATE HFA 90 MCG/ACTUATI* 1 In* 0 04/19/2017 Cmt: May give covered albuterol HFA namebrand inhaler or patient preference Route: INHALATION Sig: Inhale 2 Puffs as instructed every 4 hours as needed for Wheezing/Shortness of Breath. Medications Discontinued During This Encounter triamcinolone acetonide (KENALOG) 0.* 45 g 0 04/15/2014 04/19/2017 Route: TOPICAL Sig: Apply 1 application to affected area three times daily as needed. Apply sparingly to area for rash/itching on lower back. Disc: Reason for discontinue is not on file. ketoconazole (NIZORAL) 2 % cream 30 g 0 04/15/2014 04/19/2017 Route: TOPICAL Sig: Apply 1 application to affected area once daily. To lower back; extend to 7 days after rash clears up. Disc: Reason for discontinue is not on file. carvedilol (COREG) 3.125 mg tablet 180 * 3 04/20/2016 04/19/2017 Route: ORAL Sig: Take 1 tablet by mouth twice daily with meals. Disc: Reason for discontinue is not on file. valsartan (DIOVAN) 40 mg tablet 90 t* 3 04/20/2016 04/19/2017 Cmt: Give 3 RF, not just 2 Route: ORAL Sig: Take 1 tablet by mouth once daily. Disc: Reason for discontinue is not on file. nitroglycerin sublingual (NITROQUICK* 1 Richard* 0 12/09/2016 04/19/2017 Route: SUBLINGUAL Sig: Dissolve 1 tablet under the tongue every 5 minutes as needed for Chest Pain. Disc: Reason for discontinue is not on file. Disposition: Return in about 6 months (around 10/17/2017) for 6 months follow up. Follow-up and Disposition History Recorded Encounter Status:Closed by LUIS SMART MD on 05/05/17 CBC Collected: 04/11/2017 Status: F Source: [place] 8:28 AM [facility] REPOSITORY TYPE CODE TESTS RESULT OUT OF REFERENCE UNITS RANGE LAB WBC 3.70-11.00 k/uL WBC 9.34 LAB RBC 3.90-5.20 m/uL RBC 5.10 LAB HGB 11.5-15.5 g/dL High Hemoglobin 15.7 LAB HCT 36.0-46.0 % High Hematocrit 49.4 LAB MCV 80.0-100.0 fL MCV 96.9 LAB MCH 26.0-34.0 pG MCH 30.8 LAB MCHC 30.5-36.0 g/dL MCHC 31.8 LAB RDWCV 11.5-15.0 % RDW-CV 12.4 LAB PLTCT 150-400 k/uL Platelet Count 320 LAB MPV 9.0-12.7 fL MPV 10.2 LAB ABSNUC <0.01 k/uL Absolute nRBC <0.01 Performed By: #### CBC, AHCV1B, CMP, LIPB #### [facility] [address] [place], [place] [address] HEP C AB IA W/CONF Collected: 04/11/2017 Status: F Source: [place] 8:28 AM [facility] REPOSITORY TYPE CODE TESTS RESULT OUT OF REFERENCE UNITS RANGE LAB AHCV Negative Hepatitis C Ab Negative IA Performed By: #### CBC, AHCV1B, CMP, LIPB #### [facility] [address] [id number] COMP METABOLIC PANEL Collected: 04/11/2017 Status: F Source: [place] 8:28 AM [facility] REPOSITORY TYPE CODE TESTS RESULT OUT OF REFERENCE UNITS RANGE LAB TP 6.3-8.0 g/dL Protein, Total 6.8 LAB ALB 3.9-4.9 g/dL Albumin 4.0 LAB CA 8.5-10.2 mg/dL Calcium, Total 9.4 LAB TBIL 0.2-1.3 mg/dL Bilirubin, Total 0.2 LAB ALKP 32-117 U/L Alkaline Phosphatase 70 LAB AST 13-35 U/L AST 17 LAB GLU 74-99 mg/dL Glucose 87 Result Comment: The [place] Diabetes Association (ADA) provides guidance for cutoff values for fasting glucose and random glucose. The ADA defines fasting as no caloric intake for at least 8 hours. Fas ting plasma glucose results between 100 to 125 mg/dL indicate increased risk for diabetes (prediabetes). Fasting plasma glucose results greater than or equal to 126 mg/dL meet the criteria for diagnosis of diabetes. In the absence of unequivocal hyperglycemia, results should be confirmed by repeat testing. In a patient with classic symptoms of hyperglycemia or hyperglycemic crisis, random plasma glucose results greater than or equal to 200 mg/dL meet the criteria for diagnosis of diabetes. Reference: Standards of Medical Care in Diabetes 2016, [place] Diabetes Association. Diabetes Care. 2016.39(Suppl 1). LAB BUN 7-21 mg/dL BUN 9 LAB CRET 0.58-0.96 mg/dL Creatinine 0.63 LAB NA 136-144 mmol/L Sodium 138 LAB K 3.7-5.1 mmol/L Potassium 4.0 LAB CL 97-105 mmol/L Low Chloride 95 LAB CO2 22-30 mmol/L CO2 High 33 LAB AGAP 9-18 mmol/L Anion Gap 10 LAB ALT 7-38 U/L ALT 13 LAB GFRAA eGFR- Amer. >60 LAB GFRNAA . eGFR-All Other Races >60 Result Comment: eGFR (Estimated GFR) Units of measure: mL/min/1.73 meters squared eGFR is derived from the reexpressed MDRD Study equation using the following parameters: serum creatinine, age, gender and race. The creatinine assay has been calibrated to be traceable to IDMS. An eGFR <60 mL/min/1.73m2 for >3 months is consistent with chronic kidney disease. Refer to KDOQI guidelines for clinical interpretation. In patients with unstable renal function, e.g. those with acute kidney injury, the eGFR may not accurately reflect actual GFR. Performed By: #### CBC, AHCV1B, CMP, LIPB #### [facility] [address] [place], [place] [address] LIPID PANEL, BASIC Collected: 04/11/2017 Status: F Source: [place] 8:28 AM [facility] REPOSITORY TYPE CODE TESTS RESULT OUT OF REFERENCE UNITS RANGE LAB CHOL <200 mg/dL Cholesterol 156 Result Comment: <200 mg/dL, Desirable 200-239 mg/dL, Borderline high >239 mg/dL, High LAB TRIGLY <150 mg/dL Triglyceride High 219 Result Comment: <150 mg/dL, Normal 150-199 mg/dL, Borderline high 200-499 mg/dL, High >499 mg/dL, Very high LAB HDL >39 mg/dL HDL-Cholesterol 43 Result Comment: 40-59 mg/dL, Acceptable >59 mg/dL, High: Negative risk factor for coronary heart disease <40 mg/dL, Low: Positive risk factor for coronary heart disease LAB LDL <100 mg/dL LDL-Cholesterol 69 Result Comment: <100 mg/dL, Optimal 100-129 mg/dL, Near optimal/above optimal 130-159 mg/dL, Borderline high 160-189 mg/dL, High >189 mg/dL, Very high Secondary prevention optimal LDL Cholesterol levels are recommended to be < 70 mg/dL LAB NONHDL <130 mg/dL Non HDL Cholesterol 113 Result Comment: <130 mg/dL, Optimal 130-159 mg/dL, Near optimal/above optimal 160-189 mg/dL, Borderline high 190-219 mg/dL, High >219 mg/dL, Very high Secondary prevention optimal non HDL Cholesterol levels are recommended to be < 100 mg/dL LAB FT hrs Fasting Time 10 LAB VLDL <30 mg/dL High VLDL Cholesterol 44 LAB TCHDL <5.10 TC:HDL Ratio 3.63 LAB LDLHDL <2.54 LDL:HDL Ratio 1.60 Result Comment: Reference: 1. National Cholesterol Education Program ATP III Guideline At-A-Glance Quick Desk Reference: National Heart, Lung, and Blood [place]. National Institutes of Health. 2001: NIH Publication No. 01-3305. 2. An International Atherosclerosis Society position paper: global recommendations for the management of dyslipidemia: executive summary, Atherosclerosis. 2014: 232(2):410-413. Performed By: #### CBC, AHCV1B, CMP, LIPB #### [facility] [address] [address] ALLERGIES ALLERGIES DATE TYPE / NAME / CODE REACTION SEVERITY SOURCE CODE 11/27/2017 Drug NSAIDS Itching Unknown [facility] Allergy/41 (Non-Steroidal Community 6796922(SN Anti-Inflamma/M54179 Hospital OMED CT) 0439(RXNORM) Repository 11/27/2017 Drug Sulfa (Sulfonamide Unknown Unknown [facility] Allergy/41 Antibiotics)/[id number] Community 5642195(SN 491(RXNORM) Hospital OMED CT) Repository 02/17/2017 DRUG/20463 NITROFURANTOIN ITCHING [facility] 1003(SNOME MONOHYD/M-CRYST [place] D [facility]) Repository 10/01/2012 DRUG NAPROXEN SWELLING [facility] INGREDI/41 [place] 5041339(SN Repository OMED CT) 02/03/2010 Drug SULFA (SULFONAMIDE RASH [facility] Class/4195 ANTIBIOTICS) [place] [address](SNOM Repository ED CT) ENCOUNTERS ENCOUNTERS ADMIT/DISCHARGE ACCOUNT ADMITTING ENCOUNTER LOCATION SOURCE NUMBER CLASS 03/08/2018 [id number] Ambulatory BMSBuilding:B [facility] MS.CF.[facility] Repository 03/08/2018 [id number] Ambulatory [facility] Hospital ing[facility] Repository 12/11/2017/12/12/19 [id number] Ambulatory BMSBuilding:B [place] [address] [facility] Repository 09/20/2017/10/12/19 [id number] Ambulatory [address] [place] Repository 09/18/2017/09/19/19 [id number] Ambulatory [address] Repository 08/04/2017/08/08/19 [id number] Ambulatory [address] Repository 05/26/2017/05/27/19 [id number] Ambulatory BMSBuilding:B [facility] 18 [facility] Repository 05/10/2017 [id number] Ambulatory BMSBuilding:B [facility] Repository 05/10/2017/05/11/19 [id number] Ambulatory BMSBuilding:B [place] [address] [facility] Repository 05/01/2017/05/03/19 [id number] Ambulatory [address] Repository 04/25/2017/04/26/19 [id number] Ambulatory BMSBuilding:B [place] [address] [facility] Repository 04/20/2017 [id number] Ambulatory [facility] Hospital ing:[facility] Repository 04/20/2017 [id number] Ambulatory BMSBuilding:W [facility] Repository 04/19/2017/04/19/19 [id number] Ambulatory [address] Repository 04/11/2017/04/11/19 [id number] Ambulatory [address] Repository PAYERS PAYERS ENCOUNTER GUARANTOR PAYER SUBSCRIBER SOURCE 03/08/2018 SARAY L Primary SARAY L [place] [id number] Insurance:[facility] BURNETTEDOB: [facility], *[place] [id number] [address]Skk: Number: Repository [id number] () Date:[id number] [address]DW: 03/08/2018 Secondary NOT GIVENUNK [facility] Insurance:SELF PAY [facility] Number: Effective Repository Date:2018-03-08 03/08/2018 SARAY L Primary SARAY L [place] [id number] Insurance:[facility] BURNETTEDOB: [facility], *[place] [facility] [id number] Health Center [address]Zsp: Number: Repository [id number] () Date:[id number] [address] [address]AU: 03/08/2018 Secondary NOT GIVENUNK [facility] Insurance:SELF PAY [facility] Number: Effective Repository Date:2017-12-11 12/11/2017 ASRAY L Primary SARAY L [facility] [id number] ONE Insurance:[employer] C BURNETTEDOB: Community HALF NOLD *IN [facility] [id number], [place] Number: Repository [address]Epj: [phone] [id number] [phone] () Date:2311-82-17XE [address] [address]SX: 12/11/2017 Secondary NOT GIVENUNK [place] Insurance:SELF PAY [facility] Number: Effective Repository Date:2017-12-11 05/26/2017 SARAY L Primary SARAY L [facility] [id number] ONE Insurance:MYCARE C BURNETTEDOB: Community HALF NOLD *IN [facility] [id number], [place] Number: Repository [address]Srz: [id number] [phone] Date:2334-50-45QB [address] () [address] [place] [address]MM: 05/26/2017 Secondary NOT GIVENUNK [facility] Insurance:SELF PAY [facility] Number: Effective Repository Date:2017-05-26 05/10/2017 SARAY L Primary SARAY L [facility] [id number] ONE Insurance:MYCARE C BURNETTEDOB: Community HALF NOLD *IN [facility] [id number], [place] Number: Repository [id number]: [id number] [phone] Date:[id number] [address] () [address] [place] [id number]: 05/10/2017 Secondary NOT GIVENUNK [facility] Insurance:SELF PAY [facility] Number: Effective Repository Date:2017-05-10 05/10/2017 SARAY L Primary SARAY L [facility] [id number] ONE Insurance:[employer] BURNETTEDOB: Community HALF NOLD *IN [facility] [id number], [place] Number: Repository [id number]: [id number] [phone] Date:6774-58-19RQ [address] () [address] [place] [address]FX: 05/10/2017 Secondary NOT GIVENUNK [facility] Insurance:SELF PAY [facility] Number: Effective Repository Date:2017-05-10 04/25/2017 SARAY L Primary SARAY L [facility] [id number] ONE Insurance:MYCARE C BURNETTEDOB: Community HALF NOLD *IN [id number] [place] Number: Repository [address]Hul: [id number] [phone] Date:3542-68-40FQ [address] () [address] [place] [address]IB: 04/25/2017 Secondary NOT GIVENUNK [facility] Insurance:SELF PAY [facility] Number: Effective Repository Date:2017-03-07 04/20/2017 SARAY L Primary SARAY L [facility] [id number] ONE Insurance:MYCARE C BURNETTEDOB: Community HALF NOLD *IN [facility] [id number] [facility] [place] Number: Repository [id number]: [id number] [phone] Date:8084-46-31PF [address] () [address] [place] [address]LV: 04/20/2017 Secondary NOT GIVENUNK [place] Insurance:SELF PAY [facility] Number: Effective Repository Date:2017-02-07 04/20/2017 SARAY L Primary SARAY L [place] [id number] ONE Insurance:[employer]ARE [employer] BURNETTEDOB: Community HALF NOLD *IN [facility] [id number] City [facility] [place] Number: Repository [address]Zwu: [id number] [phone] Date:7775-23-16YZ [address] () [place] [address]OJ: 04/20/2017 Secondary NOT GIVENUNK [facility] Insurance:SELF PAY [facility] Number: Effective Repository Date:2017-04-20
== END ==
PROVIDERS: Family Provider Internal Medicine; PCP Internal Medicine; Referring Provider Internal Medicine Cardiovascular Disease; Visit Provider Internal Medicine Cardiovascular Disease
DX: R19.7 Diarrhea, unspecified (principal); I73.9 Peripheral vascular disease, unspecified; I25.10 Atherosclerotic heart disease of native coronary artery without angina pectoris; E78.2 Mixed hyperlipidemia; R20.0 Anesthesia of skin; R20.2 Paresthesia of skin; F17.200 Nicotine dependence, unspecified, uncomplicated
CPT/HCPCS: 93880; 93923

== ENCOUNTER → 2018-08-31 10:52 | Outpatient (CLI) | payer MEDICARE, SELFPAY ==
[2018-08-31 10:05] VITALS: BMI 28.4
[2018-08-31 10:59] LABS: Mucous, Urine 0 SEEN /hpf (<or=2+)
[2018-08-31 12:24] LABS: Color, Urine Yellow (Yellow); Glucose, Dipstick Normal (Normal); Ketone-Dipstick Negative (Negative); Leukocyte Esterase-Dipstick 500 /ul (Negative); Nitrite-Dipstick Negative (Negative); Occult Blood-Urine 150 /ul (Negative); Protein-Dipstick Negative (Negative); Specific Gravity, Urine 1.005 (1.002-1.030); Urine Bilirubin Dipstick Negative (Negative); Urine Clarity Sl. Cloudy (Clear); Urine Urobilinogen Normal (Normal)
[2018-08-31 12:30] LABS: Bacteria 1+ /hpf (None Seen); Red Blood Cells-Urine 10-25 SEEN /hpf (0-5); Squamous Epithelial Cells - UA 0-5 SEEN /hpf (5-10); White Blood Cells 25-50 SEEN /hpf (0-5)
== END ==
PROVIDERS: Family Provider Internal Medicine; PCP Internal Medicine; Referring Provider Internal Medicine Cardiovascular Disease; Visit Provider Internal Medicine Cardiovascular Disease
DX: N39.0 Urinary tract infection, site not specified (principal)
CPT/HCPCS: 81001; 87086; 87088; 87186

== ENCOUNTER → 2018-11-05 11:07 | Outpatient (CLI) | payer MEDICARE, MEDICAID, SELFPAY ==
[2018-08-31 10:05] VITALS: BMI 28.4
--- NOTE | 2018-11-05 11:10 | US_ITS ---
STUDY: RENAL ULTRASOUND - COMPLETE REASON FOR EXAM: Female, 73 years old. Recurrent UTI TECHNIQUE: Ultrasound evaluation of the kidneys was performed with real-time and static zavala-scale imaging. COMPARISON: None. FINDINGS: RIGHT KIDNEY: Normal location of the right kidney, which is normal in size. The right kidney measures 11.3 x 5.0 x 5.3 cm. There is a normal cortex of the right kidney. The renal cortex measures 1.1 cm. Mildly echogenic 7 mm cortical echogenic focus. There is no right hydronephrosis. DISTAL RIGHT URETER: There is non-visualization of the distal right ureter. There is a visualized right ureteral jet. LEFT KIDNEY: Normal location of the left kidney, which is normal in size. The left kidney measures 10.0 x 5.8 x 6.7 cm. There is a normal cortex of the left kidney. The renal cortex measures 1.4 cm. Mildly echogenic 5 mm cortical echogenic focus There is no left hydronephrosis. DISTAL LEFT URETER: There is non-visualization of the distal left ureter. There is a visualized left ureteral jet. BLADDER: The distended urinary bladder has a volume of 208 ml. The post void urinary bladder has a volume of 34 ml. There is borderline wall thickness of the distended urinary bladder measuring 3.5 mm. There is no demonstrated mass within the urinary bladder. There are no demonstrated bladder calculi. US/Kidney and Bladder IMPRESSION: Cortical echogenic foci of the kidneys possibly nonobstructive calculi or vascular calcifications. Electronically Signed: Jermaine Martinez DO at 19:12 EDT Tel [phone], Service support ,
== END ==
PROVIDERS: Family Provider Internal Medicine; PCP Internal Medicine; Referring Provider Urology; Visit Provider Urology
DX: N39.0 Urinary tract infection, site not specified (principal)
CPT/HCPCS: 76770

== ENCOUNTER → 2018-12-07 08:43 | Outpatient (CLI) | payer MEDICARE, SELFPAY ==
[2018-08-31 10:05] VITALS: BMI 28.4
== END ==
PROVIDERS: Family Provider Internal Medicine; PCP Internal Medicine; Referring Provider Urology; Visit Provider Urology
DX: N39.0 Urinary tract infection, site not specified (principal); R30.0 Dysuria; R35.1 Nocturia; R19.7 Diarrhea, unspecified; N95.2 Postmenopausal atrophic vaginitis; I10 Essential (primary) hypertension; I25.2 Old myocardial infarction; F17.210 Nicotine dependence, cigarettes, uncomplicated

== ENCOUNTER 2019-03-05 12:04 | Day surgery (SDC) | payer MEDICARE, MEDICAID, SELFPAY ==
[2018-08-31 10:05] VITALS: BMI 28.4
--- NOTE | 2019-02-26 12:00 | EKG12_ITS ---
Test Reason : PRE-OP Blood Pressure : / mmHG Vent. Rate : 072 BPM Atrial Rate : 072 BPM P-R Int : 156 ms QRS Dur : 084 ms QT Int : 390 ms P-R-T Axes : 071 067 028 degrees QTc Int : 427 ms Normal sinus rhythm Possible Inferior infarct , age undetermined Abnormal ECG Confirmed by FE DALE, RENATO ([id number]), editor newspaper CHAS RM ([id number]) on 02/27/2019 10:35:31 AM Referred By: Adry Julio Confirmed By:RENATO MIRAMONTES MD
[2019-02-26 12:45] LABS: Hematocrit 46.4 % (37-47); Hemoglobin 14.9 g/dL (12.0-15.0); Mean Corp Hgb Conc 32.1 g/dL (32-36); Mean Corpuscular Hgb 30.3 pg (27.0-32.0); Mean Corpuscular Volume 94.3 fL (81-99); Mean Platelet Vol. 9.7 fl (6.2-12.0); Platelet Count 323 K/mm3 (150-450); RBC Distribution Width CV 12.4 % (11.6-14.6); RBC Distribution Width SD 43.4 fl (35.1-43.9); Red Blood Count 4.92 M/mm3 (4.2-5.4); White Blood Count 7.9 K/mm3 (4.4-11.0)
[2019-02-26 13:30] LABS: Anion Gap 4 (5-15); BUN 8 mg/dL (7-18); BUN/Creat Ratio 7.8 RATIO (10-20); Calcium,Total 8.3 mg/dL (8.5-10.1); Chloride 101 mmol/L (98-107); Creatinine, Serum 1.03 mg/dL (0.55-1.02); EST Glomerular Filtration Rate 56 mL/min (>60); Est Glom Filt Rate - Afr Amer 68 mL/min (>60); Glucose 72 mg/dL (74-106); Potassium 3.9 mmol/L (3.5-5.1); Sodium Level 137 mmol/L (136-145)
[2019-03-05 12:42] VITALS: BP 145/69; PULSE 70; RESP 15; TEMP 36.7; O2SAT 96; BMI 26.6
--- NOTE | 2019-03-05 12:45 | PCM.DC.URO ---
Discharge Diet: No Restrictions Discharge Activity: May not drive while taking narcotic pain medications. Call your doctor if you observe: Fever of 101 or Higher, Inability to urinate, Inability to have a bowel movement, Calf discomfort, Uncontrolled pain Allergies/Adverse Reactions: Allergies nitrofurantoin [From Macrobid] Allergy (Verified 03/05/19 12:41) Itching NSAIDS (Non-Steroidal Anti-Inflamma Allergy (Verified 03/05/19 12:41) itching Medications to take at Discharge aspirin 81 mg tablet,delayed release 81 mg PO QDAY 01/23/17 hydrocodone 5 mg-acetaminophen 325 mg tablet 1 tab PO BID PRN tab 01/23/17 nitroglycerin 0.4 mg sublingual tablet 0.4 mg SUBLINGUAL Q5M PRN 01/23/17 hydrochlorothiazide 12.5 mg capsule 12.5 mg PO QDAY #90 cap 04/25/17 rosuvastatin 5 mg tablet 5 mg PO QHS tab 08/31/18 Losartan Potassium [Cozaar] 25 mg PO DAILY 02/26/19 Trimethoprim [Trimpex] 100 mg PO QHS 02/26/19 Orders to be completed after discharge: Basic Metabolic Profile (BMP) Time Frame: 02/26/19, Facility: [facility], Location: Laboratory CBC-Complete Blood Cnt No Diff Time Frame: 02/26/19, Facility: [facility], Location: Laboratory Primary Care Physician: Marlene Smart MD [Primary Care Provider] - Test Results: Test results from this visit will be discussed in further detail at your follow-up appointment, if applicable. Please Follow Up With: Adry Julio MD When: call office for appt to be seen Proposed Discharge Date: 03/05/19
--- NOTE | 2019-03-05 12:46 | OP.PCM_ITS ---
Problem List (1) Urinary tract infection Status: Acute Report of Operation Date of Procedure: 03/05/19 Pre-Operative Diagnosis: recurrent urinary tract infections, smoking history Post-Operative Diagnosis: same, cystocele, vaginal atrophy Surgery/Procedure Performed:: cystoscopy, pelvic exam under anesthesia Type of Anesthesia:: MAC Specimen's removed: none Estimated Blood Loss (mL): 1cc Description of Procedure: The patient is a 73-year-old female with recurrent urinary tract infections and heavy smoker. She was unable to tolerate a cystoscopic evaluation in the office and agreed to proceed under anesthesia. Informed consent was obtained. Patient was taken to the operating room placed on the operating room table. Anesthesia monitored the head, neck, airway, IV access and vital signs throughout the case. Once anesthesia was appropriately ministered the patient was placed in dorsal lithotomy position was prepped and draped in usual sterile fashion. The patient has an obvious grade 3 cystocele, no obvious rectocele, minimal if any vault prolapse present. There is vaginal atrophy. No pelvic m ass palpable. At this time the cystoscope was inserted under direct visualization. The bladder mucosa was visualized in its entirety. There were no masses, ulcerations or bladder mucosal lesions identified. There is moderate trabeculation likely secondary to longstanding prolapse. The bladder was emptied and the case was terminated. The patient was awakened and taken to the recovery room in good condition. There were no complications during this procedure. Grafts/Implants Used: none - Complications none - Admit VTE Documentation VTE Present on Admission: Yes VTE Mechan Device Prophylaxis: SCD's VTE Pharm Prophylaxis ordered?: No Reason prophylaxis not ordered:: Treatment Not Indicated
[2019-03-05] MEDS: Lactated Ringers 1,000 ML 100 ML IV (12:54)
[2019-03-05] MEDS: Cefazolin 2 GM in 0.9% Normal Saline 100 ML IV (13:13)
[2019-03-05 13:42] VITALS: BP 126/74; BP 145/69; PULSE 69; RESP 16; TEMP 37.2; O2SAT 95
[2019-03-05 13:45] VITALS: BP 123/79; BP 145/69; PULSE 70; RESP 16; O2SAT 95
[2019-03-05 13:50] VITALS: BP 135/74; BP 145/69; PULSE 71; RESP 16; O2SAT 94
[2019-03-05 13:54] VITALS: BP 143/71; BP 145/69; PULSE 67; RESP 16; TEMP 37.2; O2SAT 95
[2019-03-05 15:00] VITALS: BP 132/89; BP 145/69; PULSE 70; RESP 16; TEMP 36.2; O2SAT 92
== END 2019-03-05 15:07 | disposition home or self-care (01) ==
LOC: SDC 12:05 → AC 12:05
PROVIDERS: Family Provider Internal Medicine; PCP Internal Medicine; Referring Provider Urology; Visit Provider Urology
PROC: 0TBB8ZX Excision of Bladder, Via Natural or Artificial Opening Endoscopic, Diagnostic (ICD-10-PCS; CPT 52000; principal; 2019-03-05 14:25)
DX: N95.2 Postmenopausal atrophic vaginitis (principal); N81.10 Cystocele, unspecified; F17.200 Nicotine dependence, unspecified, uncomplicated; R19.7 Diarrhea, unspecified; R35.1 Nocturia; Z79.82 Long term (current) use of aspirin; Z87.440 Personal history of urinary (tract) infections
CPT/HCPCS: 00910; 52000; 36415; 80048; 85027; 93005; J7120; J2405

== ENCOUNTER → 2021-08-27 | Outpatient (CLI) | payer MEDICARE, MEDICAID, SELFPAY ==
--- NOTE | 2021-08-27 12:20 | RAD_ITS ---
EXAM: XR CHEST, 2 VIEWS CLINICAL INDICATION: shortness of breath TECHNIQUE: Frontal and lateral views of the chest. This report was created using [employer] report generation technology. COMPARISON: None. FINDINGS: LUNGS AND PLEURAL SPACES: There is a large calcified granuloma in the left lung. No pneumothorax. No effusion. HEART: Unremarkable. Cardiac silhouette not enlarged. MEDIASTINUM: Central airways and mediastinal contour are unremarkable. BONES/JOINTS: Unremarkable. SOFT TISSUES: Unremarkable. RAD/Chest PA and Lateral IMPRESSION: No acute findings in the chest. Electronically Signed: Pablo Barrett MD at 17:54 EDT ,
== END | disposition home or self-care (01) ==
LOC: RAD 12:19
PROVIDERS: PCP Internal Medicine; Referring Provider Internal Medicine Cardiovascular Disease; Visit Provider Internal Medicine Cardiovascular Disease
DX: R06.02 Shortness of breath (principal); I10 Essential (primary) hypertension; I25.10 Atherosclerotic heart disease of native coronary artery without angina pectoris; I25.5 Ischemic cardiomyopathy; Z95.5 Presence of coronary angioplasty implant and graft
CPT/HCPCS: 71046

== ENCOUNTER → 2021-09-17 | Outpatient (CLI) | payer MEDICARE, MEDICAID, SELFPAY ==
--- NOTE | 2021-09-17 07:09 | ECHOD_ITS ---
Reason For Study: CAD/ASHD Procedure This was a 2D Doppler, Color Flow transthoracic echocardiogram. The exam was of adequate technical quality. Exam performed in department. Left Ventricle Normal LV size. Left ventricular systolic function is normal. The estimated ejection fraction is 65 %. Diastolic function is indeterminate. No regional wall motion abnormalities noted. Right Ventricle Normal RV size. Normal systolic function. Atria Normal left atrium. Normal right atrium. No doppler evidence for ASD. Mitral Valve There is mild to moderate mitral annular calcification. Extension of the mitral annular calcification onto the base of the posterior mitral valve leaflet. Trivial mitral valve insufficiency. Tricuspid Valve Normal tricuspid valve. Trivial tricuspid valve insufficiency. Unable to estimate RV systolic pressure due to insufficient tricuspid regurgitant envelope. Aortic Valve Trisinus/trileaflet aortic valve. Normal aortic valve. Pulmonic Valve The pulmonic valve is not well visualized. Great Vessels Normal sized aortic root. Pericardium/Pleural No pericardial effusion. MMode/2D Measurements & Calculations LVIDd: 5.2 cm IVSd: 0.98 cm Ao root diam: 2.9 cm LVIDs: 2.7 cm LVPWd: 1.1 cm RVDd: 2.7 cm FS: 47.4 % LAV(MOD-bp): 26.5 ml LVAd ap4: 22.6 cm2 SV(MOD-sp4): 40.8 ml LAV(MOD-bp) Indexed: 15.1 ml/m2 LVLd ap4: 7.0 cm LAV(MOD-sp2): 30.3 ml EDV(MOD-sp4): 60.5 ml LAV(MOD-sp4): 23.3 ml EDV(sp4-el): 62.3 ml LVAs ap4: 11.5 cm2 LVLs ap4: 5.8 cm ESV(MOD-sp4): 19.7 ml ESV(sp4-el): 19.1 ml EF(MOD-sp4): 67.4 % EF(sp4-el): 69.3 % SV(sp4-el): 43.2 ml LA A4 area: 11.5 cm2 LA dimension(2D): 3.4 cm RA A4 area: 9.3 cm2 Doppler Measurements & Calculations MV E max abel: 67.2 cm/sec Lat Peak E' Abel: 7.2 cm/sec Med Peak E' Abel: 4.3 cm/sec MV A max abel: 103.6 cm/sec E/E' lat: 9.4 E/E' med: 15.7 MV E/A: 0.65 Ao V2 max: 159.9 cm/sec LV V1 max: 148.6 cm/sec PA V2 max: 94.9 cm/sec Ao max P.2 mmHg LV V1 max P.8 mmHg Ao V2 mean: 108.9 cm/sec Ao mean P.2 mmHg Ao V2 VTI: 29.2 cm ECHO/Echo Complete Interpretation Summary Left ventricular systolic function is normal. The estimated ejection fraction is 65 %. There is mild to moderate mitral annular calcification. Extension of the mitral annular calcification onto the base of the posterior mi tral valve leaflet. Trivial mitral valve insufficiency. Trivial tricuspid valve insufficiency. Unable to estimate RV systolic pressure due to insufficient tricuspid regurgita nt envelope. Diastolic function is indeterminate. Ordering Physician: Ervin Mejia Referring Physician: Marlene Smart Performed By: Whit Bills, RDCS, RVT
--- NOTE | 2021-09-21 07:50 | STRESSREP_ITS ---
Stress Test Report Date: 09-21-2021 Procedure: Pharmacologic stress nuclear imaging study Indications: Dyspnea on exertion; CAD; PCI; ischemic mediated cardiomyopathy Consent: Per the patient Procedure: The patient underwent pharmacologic (Regadenoson 0.4mg ) evaluation with a peak heart rate of 78 beats per minute (53%predicted maximal heart rate) and a peak blood pressure of 160/80 mmHg. The baseline ECG demonstrated normal sinus rhythm. The peak pharmacologic ECG demonstrated no obvious ECG changes. There was an isolated PVC during recovery. There was no complaint of chest discomfort during pharmacologic infusion or recovery. The examination was discontinued secondary to completion of protocol. Impression: 1. Pharmacologic (Regadenoson) evaluation 2. Peak pharmacologic ECG with no obvious ECG changes. 3. There was an isolated PVC during recovery. 4. Nuclear images pending Myocardial perfusion imaging study: Technique: The patient was injected with 15.0 millicuries of technetium 99m Cardiolite and subsequently rest SPECT Cardiolite nuclear imaging was obtained in the horizontal long, vertical long, and short axis views. The patient underwent pharmacologic (Regadenoson) evaluation with a peak heart rate of 78 beats per minute (53% percent predicted maximal heart rate) and a peak blood pressure of 160/80 mmHg. The patient was injected with 44.2 millicuries of technetium 99m Cardiolite and subsequently stress SPECT Cardiolite nuclear imaging was obtained in the horizontal long, vertical long, and short axis views. A gated Cardiolite study at peak stress was obtained. Interpretation: Rest and stress SPECT Cardiolite nuclear imaging status post realignment, normalization, and attenuation correction demonstrate on the preattenuation correction images the appearance of an area of diminished myocardial perfusion/tracer uptake in portions of the distal inferolateral/lateral apical segments which appear to be somewhat more prominent following stress as opposed to rest, and on the post attenuation images there appear to be similar type findings which are less prominent at rest but somewhat more prominent status p ost stress. There is end systolic thickening and brightening. The gated Cardiolite study demonstrates myocardial thickening and inward wall motion. The reported LVEF is 75%. Impression: 1. Rest and stress SPECT Cardiolite nuclear images demonstrate myocardial perfusion changes potentially compatible with an area of previous myocardial injury/infarction involving portions of the distal inferolateral/lateral apical segments which status post stress appear to be more prominent appearing compatible with an element of stress-induced myocardial ischemia. 2. The gated Cardiolite study reports an LVEF of 75%. This note was generated with [employer] software. It may contain incorrect words, spelling, and punctuation that were not noted in checking the note before signing.
== END | disposition home or self-care (01) ==
LOC: CVS 07:08
PROVIDERS: PCP Internal Medicine; Referring Provider Internal Medicine Cardiovascular Disease; Visit Provider Internal Medicine Cardiovascular Disease
DX: I25.10 Atherosclerotic heart disease of native coronary artery without angina pectoris (principal); I25.5 Ischemic cardiomyopathy; R06.02 Shortness of breath; I10 Essential (primary) hypertension; Z95.5 Presence of coronary angioplasty implant and graft
CPT/HCPCS: 78452; 93017; 93306; A9500; A4216; J2785

== ENCOUNTER → 2021-10-05 | Outpatient (CLI) | payer MEDICARE, MEDICAID, SELFPAY ==
[2021-10-05 15:08] LABS: Hematocrit 46.4 % (37-47); Hemoglobin 15.6 g/dL (12.0-15.0); Mean Corp Hgb Conc 33.6 g/dL (32-36); Mean Corpuscular Hgb 30.6 pg (27.0-32.0); Mean Platelet Vol. 9.9 fl (6.2-12.0); Platelet Count 343 K/mm3 (150-450); RBC Distribution Width CV 12.6 % (11.6-14.6); RBC Distribution Width SD 42.9 fl (35.1-43.9); White Blood Count 9.1 K/mm3 (4.4-11.0)
[2021-10-05 15:15] LABS: International Normalized Ratio 0.9; Prothrombin Time (Protime)PT. 11.8 SECONDS (11.7-14.9)
[2021-10-05 15:16] LABS: Partial Thromboplast Time 29.9 Seconds (24.1-36.2)
[2021-10-05 15:35] LABS: Anion Gap 5 (5-15); BUN 8 mg/dL (7-18); BUN/Creat Ratio 13.8 RATIO (10-20); Calcium,Total 9.3 mg/dL (8.5-10.1); Chloride 95 mmol/L (98-107); Creatinine, Serum 0.58 mg/dL (0.55-1.02); EST Glomerular Filtration Rate 108 mL/min (>60); Est Glom Filt Rate - Afr Amer 130 mL/min (>60); Glucose 134 mg/dL (74-106); Potassium 3.9 mmol/L (3.5-5.1); Sodium Level 134 mmol/L (136-145)
== END | disposition home or self-care (01) ==
LOC: LAB 14:16
PROVIDERS: PCP Internal Medicine; Referring Provider Internal Medicine Cardiovascular Disease; Visit Provider Internal Medicine Cardiovascular Disease
DX: R94.39 Abnormal result of other cardiovascular function study (principal); Z95.5 Presence of coronary angioplasty implant and graft; R06.09 Other forms of dyspnea; I25.10 Atherosclerotic heart disease of native coronary artery without angina pectoris
CPT/HCPCS: 36415; 80048; 85027; 85610; 85730

== ENCOUNTER 2021-10-12 13:00 | Observation (INO) | payer MEDICARE, MEDICAID, SELFPAY ==
--- NOTE | 2021-10-10 22:08 | HP.PCM_ITS ---
History and Physical Date of Admission: 10/12/21 [facility] [address] [place] [address] OFFICE VISIT Date of Service:? 08/27/21 MR#: [id number] Acct: [id number] Name:MANUEL WILKINS Rep #: [id number] : 1945 ? Provider: Dr. Ervin Mejia MD Age/Sex:? 75/F ?Location: [facility] Status: Signed HPI HPI History of Present Illness Details: This is a 75-year-old white female who presents today for outpatient cardiovascular follow-up of a history of underlying CAD, inferior RI, RCA PTCA/stent (07-17-2014-[place], [place]-RCA 3.5x28 Xience BRENT), ischemic cardiomyopathy, hyperlipidemia, and hypertension.? She has previously been cared for by my former colleague Dr. Toy Silva. The patient denies symptoms considered classic for angina pectoris, CHF / pulmonary edema (with respect to orthopnea / PND), ongoing palpitations, or near syncope / syncope. The patient denies ongoing peripheral pitting edema. The patient denies the use of sublingual nitroglycerin use. She states her main concern is shortness of breath and dyspnea especially with exertional activity.? She notes sometimes she can lie down and feels short of breath and dyspneic and feels as if there is a heavy sensation on her chest.? She does not describe classic orthopnea or PND. She states she is concerned as to whether her symptoms are cardiac versus related to her history of COPD.? She has an appointment in the future with her PCP to be further evaluated from a noncardiac standpoint. She brings with her laboratory studies which includes from 05-07-2021 her lipid labs.? Her total cholesterol was 152 with an LDL of 78 and an HDL of 51.? Her triglycerides were 115. She had an ECG in the office today.? She was noted to have sinus rhythm with an inferior my pattern of indeterminate age. She also brings with her a copy of a [facility] transthoracic echocardiogram performed on 02-28-2020.? Per the report the left ventricle was normal with an LVEF of 66% with decreased diastolic compliance. Intake Vital Signs ? 08/27/2210:14 08/27/2210:18 Height 5 ft 5 in 5 ft 5 in Weight: 168 lb 4 oz ? BMI 28.0 ? BP 110/64 ? Blood Pressure Location Lt brachial ? Position Sitting ? Respiration 18 ? Pulse 72 ? Pulse Source Auscultation ? Intake Visit Reasons:?1 Y FU (NILE) Vp Talent Management Required: No Accompanied by: Self Allergies nitrofurantoin [From Macrobid] Allergy (Verified 08/27/21 11:19) ItchingNSAIDS (Non-Steroidal Anti-Inflamma Allergy (Verified 08/27/21 11:19) itching Medications aspirin 81 mg tablet,delayed release (Adult Low Dose Aspirin) 81 mg PO QDAY 01/23/17 [History Confirmed 08/27/21] hydrocodone-acetaminophen 5-325mg 5mg-325mg ([place]) 1 tab PO BID PRN pain 01/23/17 [History Confirmed 08/27/21] nitroglycerin 0.4 mg sublingual tablet 0.4 mg sublingual Q5M PRN chest pain 01/23/17 [History Confirmed 08/27/21] hydrochlorothiazide 12.5 mg capsule 12.5 mg PO QDAY #90 caps 04/25/17 [Rx Confirmed 08/27/21] rosuvastatin 5 mg tablet (Crestor) 5 mg PO QHS 08/31/18 [History Confirmed 08/27/21] losartan 25 mg tablet 25 mg PO QHS 07/26/19 [History Confirmed 08/27/21] PFSH Medical History? Anxiety Atherosclerotic heart disease of [place] coronary artery without angina pectoris Cataracts, bilateral COPD (chronic obstructive pulmonary disease) Diarrhea Diverticulosis Essential hypertension hemorroids History of diverticulitis of colon Ischemic cardiomyopathy Mixed hyperlipidemia Nicotine addiction Nicotine dependence Old inferior wall myocardial infarction Presence of stent in coronary artery (~07/17/14) Urinary tract infection Surgical History? History of partial hysterectomy Presence of coronary angioplasty implant and graft (~07/17/14) Family History? Brother?? CAD (coronary artery disease) ?? ? mid 40's from [place]?? CAD (coronary artery disease) ?? ? mid 40's from [place] Diabetes Social History? Smoking Status:? Current every day smoker tobacco type: cigarettes alcohol intake:? current details:? occasional ROS Const Const: Positive for fatigue (no energy, tired all of the time); Negative for weakness, body ache, fever(s), headache(s), chills, frequent falls, night sweats, daytime sleepiness, difficulty sleeping, excessive sweating, weight gain, weight loss, increased appetite, poor appetite, anorexia or other Eyes Eyes: Negative for blurry vision or double vision ENT ENT: Negative for headache(s), dizziness or balance problems Cardio Chest Pain: No Palpitations: No Edema: None Muscle aches with walking: None Resp Respiratory: Positive for SOB with activity (increased), SOB at rest (increased), SOB orthopnea\SOB lying down (increased..something sitting on my chest, will sit up), Cough (smokers cough) and wheezing (occasional); Negative for Coughing up blood/hemoptysis, chest congestion, pain on inspiration, snoring, stridor, crackles, paroxysmal nocturnal dyspnea or other Musc Musc: Negative for muscle aches/ myalgia, muscle weakness, joint pain or balance problems Neuro Neuro: Positive for lightheadedness (continues when laying down at night and then sitting up in the am); Negative for dizziness, near syncope, syncope, orthostatic symptoms, frequent falls, headache(s), weakness, confusion, memory loss, restless legs, blurry vision, double vision, vertigo, seizures, lack of coordination or other Endo Endo: Positive for fatigue (no energy, tired all of the time); Negative for excessive sweating Cardiology Exam Const Appearance: cooperative, healthy appearing, comfortable, no acute distress, well developed and well groomed Nutritional Appearance: overweight Orientation: alert, awake and oriented x3 Head Head: normal to inspection, normocephalic and atraumatic Ears: hearing grossly normal bilaterally Nose: external nose normal Face and Sinus: face symmetric Eyes Eyelids: eyelids normal Conjunctivae: conjunctivae normal Pupils: PERRL EOM: EOM intact bilaterally Neck Neck: normal visual inspection and full ROM Carotids: normal carotid upstroke Chest Chest inspection: normal inspection of the chest, symmetric chest movement and normal respiratory effort Auscultation: Bilateral: Clear to Auscultation Cardio Palpation: normal PMI Rate: regular rate Rhythm: regular rhythm Heart sounds: S1 normal and S2 normal GI GI: normal to inspection, soft and bowel sounds present Neuro General: patient alert, patient awake, patient oriented x3 and moves all extremities Skin Skin: no rashes or lesions noted Extremities Pulses: Normal: Right Dorsalis Pedis Pulse, Left Dorsalis Pedis Pulse, Right Posterior Tibial Pulse, Left Posterior Tibial Pulse, Right Radial Pulse and Left Radial Pulse Lower Extremity Edema: None: Bilateral Supplemental Info Supplemental Information Echocardiogram: 03-02-2017 Interpretation Summary The estimated ejection fraction is 65 %. Stage 1 diastolic dysfunction. Right ventricular systolic pressure estimated to be 25 mmHg. There is no comparison study available. Stress echocardiogram: 04-20-2017 Reason For Study: Chest Pain, CM, SOB Stress Results ? Protocol: Dobutamine Stress Echocardiogram ? Maximum Predicted HR:? 150 bpm ? Target HR:? 128 bpm% Maximum Predicted HR: ? 87 % ? DurationHeart Rate ? Stage ? (mm:ss) ? (bpm) ? ? BPDos? e ? BASELINE? 73 128/75 ? DSE- 10 MCG? 3:11 75 ? 142/7610.00 ? DSE- 20 MCG? 3:12 12? ? 3? ? 154/8120.00 ? DSE- 30 MCG? 2:02 13? ? 0? ? 138/8530.00 ? RECOVERY? 98 94/64 ? Stress Duration:? 8:25 mm:ss ? Maximum Stress HR:? 130 bpm Baseline Echocardiogram Findings The estimated ejection fraction is 65 %. ? Stress Echo Wall motion Data ? Resting WMIntermediate WMStress ? WM Resting Wall Motion ? Wall Motion Stress No regional wall motion ? No regional wall motion abnormalities noted.? abnormalities noted. EKG Data Normal intervals are noted. The patient was titrated from 10 mcg to a maximun of 30 mcg of dobutamine during the stress. The maximum heart rate attained was 130 beats per minute. This was 86% of maximum predicted heart rate. During dobutamine infusion, there were no ST or T wave changes noted to suggest ischemia. No arrhythmias noted. Interpretation Summary The estimated ejection fraction is 65 %. The patient was titrated from 10 mcg to a maximun of 30 mcg of dobutamine during the stress. Normal adequate dobutamine echocardiogram. Negative for ischemia by EKG and echocardiographic criteria. No anginal symptoms noted. No arrhythmias noted. Appropriate blood pressure response to dobutamine. Test terminated due to attainment of target heart rate. Patient unab le to keep up with treadmill initially so was converted to dobutamine echocardiogram. Final LVEF is 75%. Patient tolerated procedure well no complications. Ordering Physician: Toy Silva Referring Physician: Toy Silva Performed By: Radha Mitchell, RDCS, RVT Labs: ?? ? No Data to Display Diagnostics: ?? ? Electrocardiogram ? Echocardiogram ? Stress Echocardiogram ? Pulmonary: ?? ? Pulmonary Function Test ? Assessment and Plan Assessment and Plan (1) Atherosclerotic heart disease of [place] coronary artery without angina pectoris: ?Status:?Chronic ?Plan: At the present time she does need to continue risk factor evaluation and care as deemed appropriate. Based upon her symptoms she will be asked to have further evaluation with a chest x-ray, a follow-up transthoracic echocardiogram to reassess her left ventricular wall motion and systolic function, and a pharmacologic stress nuclear imaging study (as she states based upon her knee related issues she cannot physically walk on a treadmill) to evaluate for obvious coronary ischemia. Depending upon her findings she may or may not need further cardiac evaluation.? If she does not pursue for cardiac evaluation then she does need to follow-up with her PCP for further noncardiac/pulmonary evaluation. (2) Presence of stent in coronary artery: ?Status:?Acute ?Comment: PCI-Thrombectomy and BRENT-Mid RCA (3.5 X 38 and 3.5 X 28 Xience [place]), per Dr. Johnny Lomas, [place] 07/17/14 ?Plan: Her previous acute coronary syndrome history and subsequent PCI was reviewed with her. Again at the present time she will continue her medical therapy and continue further evaluation and care as noted. (3) Ischemic cardiomyopathy: ?Status:?Chronic ?Plan: Based upon her most recent [facility] echocardiogram it appears her overall LV systolic function improved compared to a report from her cardiac catheterization from [facility] in 2014.? At that time it stated her LVEF was 40 to 45%. (4) HLD (hyperlipidemia): ?Status:?Acute ?Plan: Her lipid labs were reviewed.? They appear to be under reasonably good control. She will continue medical therapy. (5) Essential hypertension: ?Status:?Acute ?Plan: Her blood pressure appears to be reasonably well controlled as well. She will continue her medical management. (6) Shortness of breath: ?Status:?Acute ?Plan: The etiology of her shortness of breath is unclear at this time.? She will undergo further cardiac evaluation.? If this is unremarkable then she should pursue further evaluation with her PCP for possible pulmonary etiologies. ? ? ? Orders: Orders 12 Lead EKG performed by [facility] Today I25.1 0 - Atherosclerotic heart disease of [place] coronary artery without angina pectoris, Z95.5 - Presence of coronary angioplasty implant and graft ? Echo Complete Today I10 - Essential (primary) hypertension, I25.10 - Atherosclerotic heart disease of [place] coronary artery without angina pectoris, I25.5 - Ischemic cardiomyopathy, R06.02 - Shortness of breath, Z95.5 - Presence of coronary angioplasty implant and graft ? Nuclear Stress Test - Chemical Today I10 - Essential (primary) hypertension, I25.10 - Atherosclerotic heart disease of [place] coronary artery without angina pectoris, I25.5 - Ischemic cardiomyopathy, R06.02 - Shortness of breath, Z95.5 - Presence of coronary angioplasty implant and graft ? Chest PA and Lateral Today I10 - Essential (primary) hypertension, I25.10 - Atherosclerotic heart disease of [place] coronary artery without angina pectoris, I25.5 - Ischemic cardiomyopathy, R06.02 - Shortness of breath, Z95.5 - Presence of coronary angioplasty implant and graft ? Plan Details Additional Comments: Thank you for allowing me to participate in the care of your patient.? Please don't hesitate to call if any issues arise. This note was generated using a voice recognition system and there may be incorrect words, spelling or punctuation that were not noted when reviewing the office note prior to saving. Follow Up: ? ? 6 Months (PFM ) COVID (Procedure Consent) Procedure Criteria Procedure Criteria: Yes Elective The surgeon/proceduralist and patient have discussed in detail the risk of exposure to and/or potential harm posed by the COVID-19 virus with having a surgery/procedure at this time versus the risk of? delaying the surgery/procedure. It is not possible to know either the risk of delaying the surgery or procedure or chance of getting an infection with perfect accuracy, but a joint decision was made between the patient and the surgeon/proceduralist ?to proceed at this time with the scheduled surgery/procedure as indicated on the consent form. Coding Level of Care Code Off vis,est,level 5 Diagnoses Atherosclerotic heart disease of [place] coronary artery without angina pectoris? I25.10 Presence of stent in coronary artery? Z95.5 Ischemic cardiomyopathy? I25.5 HLD (hyperlipidemia)? E78.5 Essential hypertension? I10 Shortness of breath? R06.02 Coding Level of Care Code Off vis,est,level 5 Diagnoses Atherosclerotic heart disease of [place] coronary artery without angina pectoris? I25.10 Presence of stent in coronary artery? Z95.5 Ischemic cardiomyopathy? I25.5 HLD (hyperlipidemia)? E78.5 Essential hypertension? I10 Shortness of breath? R06.02 08/27/21 1208 <Electronically signed by Ervin Mejia MD> Date Ervin Mejia MD Cosigner Signature: Date (if applicable) CC:? Dr. Marlene Smart MD ~ Assessment & Plan Addt'l Comments Addendum: Echocardiogram: 09/17/2021 [facility] [address] [place] [address] Echo Complete 09/17/21 0941 MR#:? [id number] Acct: [id number] Name: MANUEL CABEZAS Rep #: [id number] :? 1945 ? 75 From: Ervin Mejia MD Attending Dr: ? ? Dr. Ervin Mejia MD Status:? REG CLI Ordering Dr:? Ervin Mejia MD Date:? 09/17/21 ? Location: [facility] Sex: F C Admitted: ? Reason For Study: CAD/ASHD Procedure This was a 2D Doppler, Color Flow transthoracic echocardiogram. The exam was of adequate technical quality. Exam performed in department. Left Ventricle Normal LV size. Left ventricular systolic function is normal. The estimated ejection fraction is 65 %. Diastolic function is indeterminate. No regional wall motion abnormalities noted. Right Ventricle Normal RV size. Normal systolic function. Atria Normal left atrium. Normal right atrium. No doppler evidence for ASD. Mitral Valve There is mild to moderate mitral annular calcification. Extension of the mitral annular calcification onto the base of the posterior mitral valve leaflet. Trivial mitral valve insufficiency. Tricuspid Valve Normal tricuspid valve. Trivial tricuspid valve insufficiency. Unable to estimate RV systolic pressure due to insufficient tricuspid regurgitant envelope. Aortic Valve Trisinus/trileaflet aortic valve. Normal aortic valve. Pulmonic Valve The pulmonic valve is not well visualized. Great Vessels Normal sized aortic root. Pericardium/Pleural No pericardial effusion. MMode/2D Measurements & Calculations LVIDd: 5.2 cm? IVSd: 0.98 cm? Ao root diam: 2.9 cm LVIDs: 2.7 cm? LVPWd: 1.1 cm RVDd: 2.7 cm ? FS: 47.4 % ? _ LAV(MOD-bp): 26.5 ml ? LVAd ap4: 22.6 cm2 ? SV(MOD-sp4): 40.8 ml LAV(MOD-bp) Indexed: 15.1 ml/m2? LVLd ap4: 7.0 cm LAV(MOD-sp2): 30.3 ml? EDV(MOD-sp4): 60.5 ml LAV(MOD-sp4): 23.3 ml? EDV(sp4-el): 62.3 ml ? LVAs ap4: 11.5 cm2 ? LVLs ap4: 5.8 cm ? ESV(MOD-sp4): 19.7 ml ? ESV(sp4-el): 19.1 ml ? EF(MOD-sp4): 67.4 % ? EF(sp4-el): 69.3 % ? SV(sp4-el): 43.2 ml? LA A4 area: 11.5 cm2 ? ? ? LA dimension(2D): 3.4 cm ? RA A4 area: 9.3 cm2 Doppler Measurements & Calculations MV E max abel: 67.2 cm/sec? Lat Peak E' Abel: 7.2 cm/sec? ? ? Med Peak E' Abel: 4.3 cm/sec MV A max abel: 103.6 cm/sec ? ? ? E/E' lat: 9.4? E/E' med: 15.7 MV E/A: 0.65 ? _ Ao V2 max: 159.9 cm/sec? LV V1 max: 148.6 cm/sec? PA V2 max: 94.9 cm/sec Ao max P.2 mmHg ? LV V1 max P.8 mmHg Ao V2 mean: 108.9 cm/sec Ao mean P.2 mmHg Ao V2 VTI: 29.2 cm ECHO/Echo Complete Interpretation Summary Left ventricular systolic function is normal. The estimated ejection fraction is 65 %. There is mild to moderate mitral annular calcification. Extension of the mitral annular calcification onto the base of the posterior mitral valve leaflet. Trivial mitral valve insufficiency. Trivial tricuspid valve insufficiency. Unable to estimate RV systolic pressure due to insufficient tricuspid regurgitant envelope. Diastolic function is indeterminate. ? Ordering Physician: Ervin Mejia Referring Physician: Marlene Smart Performed By: Whit Bills, GERALDO, RVT 09/21/21 105 Date Ervin Mejia MD CC:? Dr. Marlene Smart MD; Dr. Ervin Mejia MD ~ Date Dictated: 09/17/21 0941 Date Transcribed:? 09/21/21 1051 Software Writer: Signed Stress Test: 09/21/[address] Ervin Mejia MD on 09/21/21 at 0853 Addendum: Correction: Date of procedure: 09-17-2021 Date of report: 09-21-2021 This note was generated using a voice recognition system and there may be incorrect words, spelling or punctuation that were not noted when reviewing the office note prior to saving. Date Ervin Mejia MD cc:? Dr. Marlene Smart MD; Dr. Ervin Mejia MD ~* Signed ADDENDUM by Dr. Ervin Mejia MD on 09/21/21 at 0800 Addendum: Inadvertently opened. Please disregard. Date Ervin Mejia MD cc:? Dr. Marlene Smart MD; Dr. Ervin Mejia MD ~* Signed Stress Test Report Date: 09-21-2021 Procedure: Pharmacologic stress nuclear imaging study? Indications: Dyspnea on exertion; CAD; PCI; ischemic mediated cardiomyopathy Consent: Per the patient Procedure: The patient underwent pharmacologic (Regadenoson 0.4mg ) evaluation with a peak heart rate of 78 beats per minute (53%predicted maximal heart rate) and a peak blood pressure of 160/80 mmHg. The baseline ECG demonstrated normal sinus rhythm.? The peak pharmacologic ECG demonstrated no obvious ECG changes. There was an isolated PVC during recovery. There was no complaint of chest discomfort during pharmacologic infusion or recovery. The examination was discontinued secondary to completion of protocol. Impression: 1.? Pharmacologic (Regadenoson) evaluation 2.? Peak pharmacologic ECG with no obvious ECG changes. 3.? There was an isolated PVC during recovery. 4.? Nuclear images pending Myocardial perfusion imaging study: Technique: The patient was injected with 15.0 millicuries of technetium 99m Cardiolite and subsequently rest SPECT Cardiolite nuclear imaging was obtained in the horizontal long, vertical long, and short axis views. The patient underwent pharmacologic (Regadenoson) evaluation with a peak heart rate of 78 beats per minute (53% percent predicted maximal heart rate) and a peak blood pressure of 160/80 mmHg. The patient was injected with 44.2 millicuries of technetium 99m Cardiolite and subsequently stress SPECT Cardiolite nuclear imaging was obtained in the horizontal long, vertical long, and short axis views.? A gated Cardiolite study at peak stress was obtained. Interpretation: Rest and stress SPECT Cardiolite nuclear imaging status post realignment, normalization, and attenuation correction demonstrate on the preattenuation correction images the appearance of an area of diminished myocardial perfusion/tracer uptake in portions of the distal inferolateral/lateral apical segments which appear to be somewhat more prominent following stress as opposed to rest, and on the post attenuation images there appear to be similar type findings which are less prominent at rest but somewhat more prominent status post stress.? There is end systolic thickening and brightening.? The gated Cardiolite study demonstrates myocardial thickening and inward wall motion.? The reported LVEF is 75%. Impression: 1.? Rest and stress SPECT Cardiolite nuclear images demonstrate myocardial perfusion changes potentially compatible with an area of previous myocardial injury/infarction involving portions of the distal inferolateral/lateral apical segments which status post stress appear to be more prominent appearing compatible with an element of stress-induced myocardial ischemia. 2.? The gated Cardiolite study reports an LVEF of 75%. This note was generated with [employer] software. It may contain incorrect words, spelling, and punctuation that were not noted in checking the note before signing. 09/21/21758 <Electronically signed by Ervin Mejia MD> Date Ervin Mejia MD CC:? Dr. Marlene Smart MD; Dr. Ervin Mejia MD ~ Date Dictated: 09/21/21749 Date Transcribed:? 09/21/21749 Software Writer: PM Signed Based upon the above findings it was felt reasonable to consider further evaluation with diagnostic cardiac catheterization. The procedure and risks were discussed with the patient. She grants consent. This note was generated using a voice recognition system and there may be incorrect words, spelling or punctuation that were not noted when reviewing the office note prior to saving.
[2021-10-11 07:20] VITALS: BMI 27.9
[2021-10-12] VITALS (13 sets, daily range): BP systolic 104–155; BP diastolic 60–99; PULSE 55–69; RESP 16–20; TEMP 36.2–36.6; O2SAT 94–100
--- NOTE | 2021-10-12 13:15 | EKG12_ITS ---
Test Reason : ROUTINE Blood Pressure : / mmHG Vent. Rate : 058 BPM Atrial Rate : 058 BPM P-R Int : 190 ms QRS Dur : 092 ms QT Int : 420 ms P-R-T Axes : 076 065 066 degrees QTc Int : 412 ms Sinus bradycardia Cannot rule out Inferior infarct , age undetermined Abnormal ECG Confirmed by FE DALE, ERVIN ([id number]), art editor ANUJ FORTUNE ([id number]) on 10/19/2021 8:02:48 AM Referred By: Ervin Miramontes Confirmed By:ERVIN MIRAMONTES MD
--- NOTE | 2021-10-12 13:27 | CL.I_ITS ---
Patient Name: MANUEL CABEZAS Study Date: 10/12/2021 Performing: Kinza Rivera MD Ht: 65 inches 165 cm : 1945 Wt: 167.8 lbs 76 kg Age: 75 Gender: female BSA: 1.83 PROCEDURE(S) PERFORMED IC12-(07970/C9600)BRENT W/WO PTCA, SINGLE CORONARY ARTERY CLINICAL PROFILE AND CO-MORBIDITIES Heart Failure: None CAD Presentations: Unstable angina. CONCLUSIONS Successful BRENT to ostial RCA RECOMMENDATIONS Pt. should return for PCI of LAD in about 4 weeks DESCRIPTION OF PROCEDURE The patient arrived to the procedure lab. The risks and benefits of the procedure as well as a full description of our services here and current unavailability of surgical backup were fully explained to the patient and/or their significant other prior to the catheterization. The Timeout was completed, verifying the correct patient and procedure. The patient's procedural site was prepped and draped in the usual fashion. Local anesthetic was given subcutaneously to right radial region with Lidocaine 2% Using a modified Seldinger technique,arterial access was obtained via the right radial artery, a 6Fr sheath was inserted. Left Coronary Artery selective angiography was performed in multiple views using a 5 Fr. 4.0 [place] catheter. Right Coronary Artery selective angiography was then performed in multiple views using a 5 Fr. 4.0 [place] catheter.The images were reviewed and options discussed. A decision was then made to proceed with an Intervention, IVUS or other adjunct procedure. Arterial sheath was exchanged for a 6fr radial sheath- previous sheath difficulty with flushing Arterial sheath was exchanged for a 6fr radial sheath JR4 SH Guide catheter was inserted and engaged into the RCA. BMW Guide wire was advanced to the RCA. Emerge 3.50x15 Balloon catheter was inserted. PTCA balloon inflated at 10 atms for 25 secs. Angiogram performed post balloon dilatation. [place] 3.50x10 Cutting balloon catheter was inserted [place] 3.50x10 Cutting balloon catheter was inserted Angiogram performed post balloon dilatation. NC Balloon 3.50x15 Balloon catheter was inserted. PTCA balloon inflated at 20 atms for 49 secs. Angiogram performed post balloon dilatation. Orsiro 3.5x18 Drug Eluting stent was inserted. Angiogram performed post stent deployment. NC Emerge 3.50x15 Balloon catheter was inserted. Angiogram performed post balloon dilatation. The arterial sheath was pulled and a TR Band was applied for hemostasis with 15 ml air INTERVENTION INFORMATION LESION SITE: RCA (Ostial) Lesion Complexity: High/C, chronic total occlusion: No, lesion at bifurcation: No, thrombus present: No, lesion length: 12 mm, culprit lesion: Yes, Previously treated lesion: Yes, In-stent restenosis: Yes, Timeframe of previous treatment: >2 years, In-stent Thrombosis: No, Previously treated with a stent: Yes Stent Type: with stent type unknown Pre Stenosis: 80 % Pre intervention HANANE flow: 3 PROCEDURE: Cutting Balloon Angioplasty, Drug Eluting Stent with pre and post dilatation Post Stenosis: 0 % Post intervention HANANE flow: 3 Lesion Devices: [place] .014 BMW [place] Straight 190cm Medtronic 6 Fr JR4.0 SH 100cm Guide Catheter Kvng Sci EMERGE MR 3.50x15 BALLOON Kvng Sci [place] cutting balloon 3.5x10 Kvng Sci NC EMERGE MR 3.50x15 BALL[place]ON Biotronik [facility] MR BRENT 3.5x18 COMPLICATIONS No Complications PROCEDURE MEDICATIONS Versed 1 mg IV Fentanyl 50 mcg IV Versed 1 mg IV Oxygen: 2 L/min via nasal cannula Brilinta 180 mg PO @ 10/12/2021 11:46:58 Heparin given IA 10/12/2021 11:25:59 Heparin 4000 unit(s) IV 10/12/2021 12:14:06 Verapamil 2.5mg, Ntg 100mcgs, 3000 units of Heparin given IA 10/12/2021 11:25:59 IV Bolus: .9 NaCl 350ml total 10/12/2021 11:40:00 SUMMARY OF HEMODYNAMIC DATA Time AIR REST ECG 10:50:38 Art 159/70 (103) 11:15:56 AO 143/69 (99) SA 11:28:26 AO 114/55 (78) 11:59:14 Signed By Kinza Rivera MD On 10/12/2021 13:26:48 Kinza Rivera MD
[2021-10-12] MEDS: 0.9% Normal Saline 1,000 ML 60 ML IV (13:57)
[2021-10-12] MEDS: HYDROcodone Bitartrate/Apap 5/325 Tablet PO (14:10)
--- NOTE | 2021-10-12 14:35 | CRPH1.INST_ITS ---
General Education CAD and cardiac anatomy and function:: Patient communicates acknowledgment Explanation of diagnoses and procedures:: Patient communicates acknowledgment Sign/Symptoms of LA:: Patient communicates acknowledgment Antiplatelet therapy: Patient communicates acknowledgment Smoking Patient Nicotine/Smoking Risk Factors Are:: Cigarettes Recommendations Include:: Smoking cessation strategies/Smoking packet, Second- hand smoke recommendation, Participation in a smoking cessation program Nicotine/Smoking Response Code:: Patient communicates acknowledgment Dyslipidemia Patient Dyslipidemia Risk Factors Are:: Total Cholesterol, Triglycerides, HDL, LDL Recommendations Include:: Lipid profile provided, Reviewed NCEP/ATP guidelines, Therapeutic Lifestyle Change dietary guidelines Dyslipidemia Response Code:: Patient communicates acknowledgment Overweight/Obesity Patient Overweight/Obesity Risk Factors Are:: Overweight = 26-29 Recommendations Include:: Weight loss of 5-10%, Reduced calorie diet, Exercise 5-7 times/week Overweight/Obesity:: Patient communicates acknowledgment Hypertension Recommendations Include:: Maintain BP <130/85, DASH dietary guidelines, Decrease/maintain normal body weight, Moderation of ETOH Hypertension:: Patient communicates acknowledgment Diabetes Patient Diabetes Risk Factors Are:: No documented hx of diabetes Sedentary Patient Sedentary Risk Factors Are:: Lack of regular exercise Recommendations Include:: Aerobic exercise 5-7 times/week for 20-30 minutes continuously, Benefits of regular exercise, Discussed home walking program, Monitored Outpatient Cardiac Rehab Sedentary Response Code:: Patient communicates acknowledgment Stress Recommendations Include:: Identification of stressors, and assessment of coping skills, Stress management techniques Stress Response Code:: Patient communicates acknowledgment
--- NOTE | 2021-10-12 14:35 | CRPHASE1 ---
Patient Communication Former Patient:: Phase I PHII Cardiac Rehab Discussed with Patient:: Yes Guide to Cardiac Rehab Given to Patient:: Yes Cardiac Rehab Facility Choice List Given to Patient:: Yes Choice Program [facility] CR PHII:: Communication Given to CR Choice Program Other:: Communication Given to CR Inspector Balance Bridge:: Nyla Rivera Refer Phase II Cardiac Rehab:: Yes Sessions:: 36 sessions - 3 days/wk, 12 weeks Cardiac Rehabilitation Info Cardiac Rehabilitation Program Information: Cardiac Rehabilitation is important for patients like you who are recovering from a heart problem. Cardiac rehabilitation programs are recognized as integral to the continued care of the patient with coronary heart disease. The cardiac rehabilitation program is designed to optimize a patient's physical, psychological, and social functioning. Health vision care associate work in cardiac rehabilitation programs and assist you with getting the treatments you need to get stronger and healthier - like exercise, healthy eating habits, and medications. Cardiac rehabilitation has been show to help people with heart problems live longer and have better life enjoyment than people who do not go to cardiac rehabilitation. Please contact the Cardiac Rehabilitation Program at [facility] at in two weeks if you have not heard from them.
--- NOTE | 2021-10-12 14:46 | CL.D_ITS ---
Patient Name: MANUEL CABEZAS Study Date: 10/12/2021 Performing: Ervin Mejia MD Ht: 65 inches 165 cm : 1945 Wt: 167.8 lbs 76 kg Age: 75 Gender: female BSA: 1.83 PROCEDURE(S) PERFORMED DC02-([id number])LHC/COR IC12-(71356/C9600)BRENT W/WO PTCA, SINGLE CORONARY ARTERY CLINICAL PROFILE AND INDICATIONS Indications: Worsening Angina, Suspected CAD Heart Failure: None Stress/Imaging Stress Test w/SPECT MPI: Yes Result: Positive Intermediate RiskStress Test with SPECT MPI: Positive Intermediate Risk Angina Classification Anginal Classification w/in 2 Weeks: Anginal Equivalent Dyspnea CAD Presentations: Unstable angina. Other: dyspnea on exertion CONCLUSIONS [place] [facility] CAD Comment: Status post injection of the RCA system the patient developed ventricular fibrillation. The patient required transient BLS/ACLS protocol with transient CPR and defibrillation x1. The patient regained sinus rhythm and was noted by intra-arterial monitoring to be hemodynamically stable. The patient was awake and alert and conversing appropriately. The patient did not require any additional medical therapy/support. The patient subsequently proceeded to PCI of the ostial RCA system without obvious adverse event. RECOMMENDATIONS Risk factor modification Medical therapy Referred for immediate PCI Case discussed / reviewed with Dr. Rivera of Interventional Cardiology DESCRIPTION OF PROCEDURE The patient arrived to the procedure lab. The risks and benefits of the procedure as well as a full description of our services here and current unavailability of surgical backup were fully explained to the patient and/or their significant other prior to the catheterization. The Timeout was completed, verifying the correct patient and procedure. The patient's procedural site was prepped and draped in the usual fashion. Local anesthetic was given subcutaneously to right radial region with Lidocaine 2%. Using a modified Seldinger technique, arterial access was obtained via the right radial artery, a 6Fr sheath was inserted. Left Coronary Artery selective angiography was performed in multiple views using a 5 Fr. 4.0 [place] catheter. Right Coronary Artery selective angiography was then performed in multiple views using a 5 Fr. 4.0 [place] catheter.The arterial sheath was pulled and a TR Band was applied for hemostasis with 15 ml air CORONARY ANGIOGRAPHY DOMINANCE: Right Dominant LEFT MAIN: Angiographically normal LEFT ANTERIOR DESCENDING ARTERY: PROX LAD: Mild calcification, 25 % Stenosis MID LAD: 75 % Stenosis CIRCUMFLEX ARTERY: Mild luminal irregularities RAMUS: Mild luminal irregularities RIGHT CORONARY ARTERY: OSTIAL RCA: 85 % Stenosis with decreased arterial wave form and pressure damping PROX RCA: Previously placed stent is patent MID RCA: Previously placed stent is patent DISTAL RCA: Previously placed stent is patent COMPLICATIONS No Complications PROCEDURE MEDICATIONS Versed 1 mg IV Fentanyl 50 mcg IV Versed 1 mg IV Oxygen: 2 L/min via nasal cannula Brilinta 180 mg PO @ 10/12/2021 11:46:58 Heparin given IA 10/12/2021 11:25:59 Heparin 4000 unit(s) IV 10/12/2021 12:14:06 Verapamil 2.5mg, Ntg 100mcgs, 3000 units of Heparin given IA 10/12/2021 11:25:59 IV Bolus: .9 NaCl 350ml total 10/12/2021 11:40:00 SUMMARY OF HEMODYNAMIC DATA Time AIR REST ECG 10:50:38 Art 159/70 (103) 11:15:56 AO 143/69 (99) SA 11:28:26 AO 114/55 (78) 11:59:14 Signed By Ervin Mejia MD On 10/12/2021 14:45:47 Ervin Mejia MD
--- NOTE | 2021-10-12 17:41 | RAD_ITS ---
STUDY: X-RAY CHEST REASON FOR EXAM: Female, 75 years old. Post CPR in catheter lab. Coded during stent placement. TECHNIQUE: PA and lateral views of the chest. COMPARISON: 08/27/2021. FINDINGS: The lungs are clear and expanded. There is no demonstrated pleural abnormality. No pneumothorax. Normal size heart. Normal mediastinum and mati. Normal visualized pulmonary arteries. There is atherosclerotic calcification of the aortic arch with tortuosity. Mild levoscoliosis and degenerative changes. There is degenerative osteoarthritis of the bilateral shoulders. There is no demonstrated abnormality of the visualized soft tissue structures of the upper abdomen. RAD/Chest PA and Lateral IMPRESSION: Degenerative changes, as described above. No demonstrated acute cardiopulmonary process. Electronically Signed: Fahad Granados DO at 21:37 EDT ,
[2021-10-12] MEDS: Furosemide 40 MG/4 ML Vial IV (18:05)
--- NOTE | 2021-10-12 18:47 | PCM.PN.CARD ---
Subjective Subjective The patient notes chest discomfort/soreness with palpation and deep inspiration as well as the sensation of shortness of breath/dyspnea somewhat more so when lying supine. Objective Data Vital Signs: Vital Signs Temp Pulse Resp BP Pulse Ox O2 Del Method O2 Flow Rate 97.4 F L 60 20 H 115/63 98 Room Air 2 10/12/21 16:19 10/12/21 16:19 10/12/21 16:19 10/12/21 16:19 10/12/21 16:19 10/12/21 16:19 10/12/21 13:37 Oxygen Flow Rate (L/min) 2 Oxygen Delivery Method Room Air Weight: 168 lb Body Mass Index (BMI) 27.9 Intake & Output: Intake and Output for Last 24 Hours 10/10/21 10/11/21 10/12/21 23:59 23:59 23:59 Intake Total 477 / 477 Balance 477 / 477 Cardiology Labs/Tests Rhythm: Sinus rhythm EKG: Sinus rhythm; no acute ECG changes Cardiac Cath: CONCLUSIONS [place] [facility] CAD Comment: Status post injection of the RCA system the patient developed ventricular fibrillation.? The patient required transient BLS/ACLS protocol with transient CPR and defibrillation x1.? The patient regained sinus rhythm and was noted by intra-arterial monitoring to be hemodynamically stable.? The patient was awake and alert and conversing appropriately.? The patient did not require any additional medical therapy/support.? The patient subsequently proceeded to PCI of the ostial RCA system without obvious adverse event. RECOMMENDATIONS Risk factor modification Medical therapy Referred for immediate PCI Case discussed / reviewed with Dr. Rivera of Interventional Cardiology DESCRIPTION OF? PROCEDURE The patient arrived to the procedure lab. The risks and benefits of the procedure as well as a full description of our services here and current unavailability of surgical backup were fully explained to the patient and/or their significant other prior to the catheterization. The Timeout was completed, verifying the correct patient and procedure. The patient's procedural site was prepped and draped in the usual fashion. Local anesthetic was given subcutaneously to right radial region with Lidocaine 2%. Using a modified Seldinger technique, arterial access was obtained via the right radial artery, a 6Fr sheath was inserted.? Left Coronary Artery selective angiography was performed in multiple views using a 5 Fr. 4.0 [place] catheter. Right Coronary Artery selective angiography was then performed in multiple views using a 5 Fr. 4.0 [place] catheter.The arterial sheath was pulled and a TR Band was applied for hemostasis with 15 ml air CORONARY ANGIOGRAPHY DOMINANCE:? Right Dominant LEFT MAIN: Angiographically normal LEFT ANTERIOR DESCENDING ARTERY: PROX LAD: Mild calcification, 25 % Stenosis MID LAD: 75 % Stenosis CIRCUMFLEX ARTERY: Mild luminal irregularities RAMUS: Mild luminal irregularities RIGHT CORONARY ARTERY: OSTIAL RCA: 85 % Stenosis with decreased arterial wave form and pressure damping PROX RCA: Previously placed stent is patent MID RCA: Previously placed stent is patent DISTAL RCA: Previously placed stent is patent PCI: CONCLUSIONS Successful BRENT to ostial RCA RECOMMENDATIONS Pt. should return for PCI of LAD in about 4 weeks DESCRIPTION OF? PROCEDURE The patient arrived to the procedure lab. The risks and benefits of the procedure as well as a full description of our services here and current unavailability of surgical backup were fully explained to the patient and/or their significant other prior to the catheterization. The Timeout was completed, verifying the correct patient and procedure. The patient's procedural site was prepped and draped in the usual fashion. Local anesthetic was given subcutaneously to right radial region with Lidocaine 2% Using a modified Seldinger technique,arterial access was obtained via the right radial artery, a 6Fr sheath was inserted. Left Coronary Artery selective angiography was performed in multiple views using a 5 Fr. 4.0 [place] catheter. Right Coronary Artery selective angiography was then performed in multiple views using a 5 Fr. 4.0 [place] catheter.The images were reviewed and options discussed. A decision was then made to proceed with an Intervention, IVUS or other adjunct procedure. ? ? Arterial sheath was exchanged for a 6fr radial? sheath- previous sheath difficulty with flushing Arterial sheath was exchanged for a 6fr radial sheath JR4 SH Guide catheter was inserted and engaged into the RCA. BMW Guide wire was advanced to the RCA. Emerge 3.50x15 Balloon catheter was inserted. PTCA balloon inflated at 10 atms for 25 secs. Angiogram performed post balloon dilatation. [place] 3.50x10 Cutting balloon catheter was inserted [place] 3.50x10 Cutting balloon catheter was inserted Angiogram performed post balloon dilatation. NC Balloon 3.50x15 Balloon catheter was inserted. PTCA balloon inflated at 20 atms for 49 secs. Angiogram performed post balloon dilatation. Orsiro 3.5x18 Drug Eluting stent was inserted. Angiogram performed post stent deployment. NC Emerge 3.50x15 Balloon catheter was inserted. Angiogram performed post balloon dilatation. ? The arterial sheath was pulled and a TR Band was applied for hemostasis with 15 ml air INTERVENTION INFORMATION LESION SITE: RCA (Ostial) Lesion Complexity: High/C, chronic total occlusion: No, lesion at bifurcation: No, thrombus present: No, lesion length: 12 mm, culprit lesion: Yes, Previously treated lesion: Yes, In-stent restenosis: Yes, Timeframe of previous treatment: >2 years, In-stent Thrombosis: No, Previously treated with a stent: Yes Stent Type: with stent type unknown ?Pre Stenosis: 80 % Pre intervention HANANE flow: 3 PROCEDURE: Cutting Balloon Angioplasty, Drug Eluting Stent with pre and post dilatation Post Stenosis: 0 %? Post intervention HANANE flow: 3 Lesion Devices: Casarez .014 BMW [place] Straight 190cm Medtronic 6 Fr JR4.0 SH 100cm Guide Catheter Kvng Sci EMERGE MR 3.50x15 BALLOON Kvng Sci [place] cutting balloon 3.5x10 Kvng Sci NC EMERGE MR 3.50x15 BALLOON Biotronik Orsiro [place] MR BRENT 3.5x18 COMPLICATIONS No Complications Chest x-ray: Preliminary evaluation: Possible increased pulmonary vascularity; official radiology report pending Physical Exam Const alert, oriented x3 and no apparent distress HEENT normocephalic, head/scalp atraumatic and hearing grossly normal bilaterally Eyes PERRL, EOMs intact bilaterally, conjunctivae normal and no scleral icterus Neck full ROM, supple and no JVD Carotids: normal carotid upstroke Chest Chest Narrative: Tenderness to palpation over the sternum and rib cage Resp Resp Narrative: Diminished inspiratory effort Auscultation: diminished lung sounds bilateral lower Cardio regular rate, regular rhythm, S1 normal heart sound and S2 normal heart sound GI normal to inspection, nondistended, normoactive bowel sounds Extremity no pedal edema Skin no rashes or lesions noted Psych mental status grossly normal Assessment & Plan Assessment/Plan (1) CAD (coronary artery disease): PLAN: The patient has a history of CAD. She has undergone recent evaluation with a transthoracic echocardiogram and an exercise tolerance test/imaging study. Based upon her studies her overall LV systolic function appeared to be preserved and her stress nuclear imaging study appeared to demonstrate concerns of stress-induced myocardial ischemia. She underwent evaluation this day with a diagnostic cardiac catheterization. This did reveal angiographically significant appearing CAD in the LAD distribution and the ostial RCA distribution. Her RCA stents were patent. She did demonstrate in the cardiac catheterization laboratory upon engagement of the RCA distribution diminished pressure damping. Status post RCA coronary angiography she did demonstrate spontaneous ventricular fibrillation. This did require transient BLS/ACLS protocol with CPR and defibrillation x1. She regained sinus rhythm and was hemodynamically stable. She was awake and alert. She appeared to be without compromise. She proceeded with a PCI/BRENT to the RCA ostial area with good angiographic result. This was performed without obvious complication. She has remained hemodynamically stable. She will continue evaluation and care. Over time the tentative plan is for a staged PCI procedure to her LAD distribution. (2) Presence of stent in coronary artery: PLAN: As noted above her remote RCA stents were patent. She subsequently received an RCA ostial PTCA/BRENT today. (3) HLD (hyperlipidemia): PLAN: She will need to continue risk factor modification and medical management. (4) Benign essential hypertension: PLAN: Her blood pressure can be followed and she should continue medical therapy as deemed appropriate. (5) COPD (chronic obstructive pulmonary disease): PLAN: She does have a history of COPD. She will need continued evaluation care per her primary care physician group. Addt'l Comments She does have post did concerns of chest discomfort and shortness of breath/dyspnea. This may be secondary to her brief CPR she received and leading to diminished inspiratory effort secondary to her discomfort as well as potentially an element of IV fluid volume overload leading to her orthopnea type symptoms and physical examination findings. At the moment she will continue to be monitored. She will continue with attempts at nonnarcotic analgesic therapy to assist with her chest discomfort. She will also receive additional diuretic therapy to assist with any volume overload. Hopefully these measures will assist with her overall comfort and breathing related symptoms. During this time she will be monitored for any other obvious concerns. The above was discussed with the patient with her family members present.
[2021-10-12] MEDS: Ketorolac 30 MG/ML Syringe IV (19:54)
[2021-10-12] MEDS: 0.9% Saline Lock 10 ML Syringe IV (19:56)
[2021-10-12] MEDS: TICAGRELOR 90 MG TABLET PO (21:13)
[2021-10-12] MEDS: Atorvastatin Calcium 10 MG Tablet PO (21:13)
[2021-10-13 03:01] VITALS: BP 163/69; PULSE 57; RESP 16; TEMP 36.5; O2SAT 96
[2021-10-13 04:17] VITALS: PULSE 62
[2021-10-13 06:28] VITALS: BP 171/64
[2021-10-13] MEDS: Aspirin E.C. 81 MG Tablet PO (06:42)
[2021-10-13] MEDS: TICAGRELOR 90 MG TABLET PO (06:42)
[2021-10-13] MEDS: hydroCHLOROthiazide 12.5mg 12.5 MG PO (06:42)
[2021-10-13] MEDS: Losartan Potassium 25 MG Tablet PO (06:42)
[2021-10-13 07:06] LABS: Hematocrit 39.3 % (37-47); Hemoglobin 13.2 g/dL (12.0-15.0); Mean Corp Hgb Conc 33.6 g/dL (32-36); Mean Corpuscular Hgb 30.6 pg (27.0-32.0); Mean Corpuscular Volume 91.2 fL (81-99); Mean Platelet Vol. 9.9 fl (6.2-12.0); Platelet Count 272 K/mm3 (150-450); RBC Distribution Width SD 43.4 fl (35.1-43.9); Red Blood Count 4.31 M/mm3 (4.2-5.4); White Blood Count 9.7 K/mm3 (4.4-11.0)
[2021-10-13 07:42] LABS: AST(SGOT) 15 U/L (15-37); Alanine Aminotransfer ALT/SGPT 20 U/L (13-56); Alkaline Phosphatase 66 U/L (45-117); Anion Gap 4 (5-15); BUN 11 mg/dL (7-18); BUN/Creat Ratio 18.6 RATIO (10-20); Calcium,Total 8.3 mg/dL (8.5-10.1); Chloride 99 mmol/L (98-107); Creatinine, Serum 0.59 mg/dL (0.55-1.02); EST Glomerular Filtration Rate 106 mL/min (>60); Est Glom Filt Rate - Afr Amer 128 mL/min (>60); Estimated Creatinine Clearance 44.41 ml/min; Glucose 99 mg/dL (74-106); Potassium 3.1 mmol/L (3.5-5.1); Sodium Level 135 mmol/L (136-145)
[2021-10-13 07:45] VITALS: PULSE 57
[2021-10-13 07:49] VITALS: O2SAT 94
[2021-10-13 08:16] VITALS: BP 129/74; PULSE 60; RESP 18; TEMP 36.5; O2SAT 94
[2021-10-13] MEDS: Potassium Chloride Oral Tablet 20 MEQ 40 MEQ PO (08:25)
--- NOTE | 2021-10-13 09:07 | PCM.DC ---
Discharge Instructions Diet Discharge Diet: Low fat / Low cholesterol Activity Discharge Activity: May Drive (x 48 hours), May Shower (Today) and May Take a Tub Bath (in 7 days) May resume sexual activity in: 1-2 weeks Weight Bearing Status: - (avoid heavy exertional activity x 1-2 weeks) Dressing / Incision Call your doctor if your incision/area has: Continuous Slow Oozing, Sudden Increased Bleeding, Increased Pain/ Swelling, Increased Redness, Foul Smelling Discharge and Swelling at the incision site Call your doctor if you observe: Fever of 101 or Higher, Shortness of breath, Fainting spells, Chest pain and Increased palpitations (irregular heartbeat) Remove Dressing in: 1 day Cleanse incision/area with: Soap & Water Follow Up Care Please Follow Up With: Ervin Mejia MD Test Results: Test results from this visit will be discussed in further detail at your follow-up appointment, if applicable. Discharge Plan Admission Admit Date/Time: 10/12/21 13:00 Attending Provider: Ervin Mejia Primary Care Provider: Marlene Smart Discharge Orders/Prescriptions Prescriptions: New clopidogrel 75 mg Tablet 75 mg PO DAILY Qty: 0 0RF Continued nitroglycerin 0.4 mg tablet, sublingual 0.4 mg SUBLINGUAL Q5M PRN (Reason: chest pain) Label Comments: every 5 minutes x 3 doses hydrocodone-acetaminophen [[place]] 5-325 mg tablet 1 tab PO BID PRN (Reason: pain) Label Comments: aspirin [Adult Low Dose Aspirin] 81 mg tablet,delayed release (DR/EC) 81 mg PO QDAY hydrochlorothiazide 12.5 mg capsule 12.5 mg PO QDAY Qty: 90 3RF rosuvastatin [Crestor] 5 mg tablet 5 mg PO QHS losartan 25 mg tablet 25 mg PO QHS Referrals / Follow Up: Marlene Smart MD [Primary Care Provider] - Ervin Mejia MD [Med Staff - Active Staff] -
--- NOTE | 2021-10-13 09:15 | DS.PCM_ITS ---
Providers Date of Admission: 10/12/21 Date of Discharge: 10/13/21 Primary Care Physician: Dr. Marlene Smart MD Reason For Visit: ABN STRESS TEST, ALFREDO, CAD, STENT IN CORONARY ARTER Diagnosis Discharge Diagnosis (1) CAD (coronary artery disease): Status: Acute Code(s): I25.10 - Atherosclerotic heart disease of [place] coronary artery without angina pectoris Plan: The patient has a history of CAD. She has undergone recent evaluation with a transthoracic echocardiogram and an exercise tolerance test/imaging study. Based upon her studies her overall LV systolic function appeared to be preserved and her stress nuclear imaging study appeared to demonstrate concerns of stress-induced myocardial ischemia. She underwent evaluation this day with a diagnostic cardiac catheterization. This did reveal angiographically significant appearing CAD in the LAD distribution and the ostial RCA distribution. Her RCA stents were patent. She did demonstrate in the cardiac catheterization laboratory upon engagement of the RCA distribution diminished pressure damping. Status post RCA coronary angiography she did demonstrate spontaneous ventricular fibrillation. This did require transient BLS/ACLS protocol with CPR and defibrillation x1. She regained sinus rhythm and was hemodynamically stable. She was awake and alert. She appeared to be without compromise. She proceeded with a PCI/BRENT to the RCA ostial area with good angiographic result. This was performed without obvious complication. She has remained hemodynamically stable. She will continue evaluation and care. Over time the tentative plan is for a staged PCI procedure to her LAD distribution. (2) Presence of stent in coronary artery: Status: Acute Code(s): Z95.5 - Presence of coronary angioplasty implant and graft Plan: As noted above her remote RCA stents were patent. She subsequently received an RCA ostial PTCA/BRENT today. (3) HLD (hyperlipidemia): Status: Acute Code(s): E78.5 - Hyperlipidemia, unspecified Plan: She will need to continue risk factor modification and medical management. (4) Benign essential hypertension: Status: Chronic Code(s): I10 - Essential (primary) hypertension Plan: Her blood pressure can be followed and she should continue medical therapy as deemed appropriate. (5) COPD (chronic obstructive pulmonary disease): Status: Chronic Code(s): J44.9 - Chronic obstructive pulmonary disease, unspecified Plan: She does have a history of COPD. She will need continued evaluation care per her primary care physician group. Medications at Discharge Home Medications aspirin 81 mg tablet,delayed release (Adult Low Dose Aspirin) 81 mg PO QDAY 01/23/17 hydrocodone-acetaminophen 5-325mg 5mg-325mg ([place]) 1 tab PO BID PRN pain 01/23/17 nitroglycerin 0.4 mg sublingual tablet 0.4 mg sublingual Q5M PRN chest pain hydrochlorothiazide 12.5 mg capsule 12.5 mg PO QDAY #90 caps 04/25/17 rosuvastatin 5 mg tablet (Crestor) 5 mg PO QHS 08/31/18 losartan 25 mg tablet 25 mg PO QHS 07/26/19 clopidogrel 75 mg tablet 75 mg PO DAILY #0 tabs 10/13/21 Hospital Course Operations None Procedures Cardiac catheterization and - (Cardiac Intervention: PCI/BRENT) Summary of Care Provided Minutes Spent on Discharge: 60 Hospital Course: The patient presented to [facility] for further evaluation of her symptoms of shortness of breath/dyspnea with a history of CAD status post remote PCI and an abnormal stress nuclear imaging study. She underwent diagnostic cardiac catheterization. She was found to have angiographically significant appearing CAD of the LAD d istribution and the ostial RCA distribution. Her previously placed RCA stents were patent. As previously documented, it was noted upon catheter engagement of the RCA system that she had decreased arterial waveform and pressure dampening and angiographic findings compatible with RCA ostial stenosis. Status post removal of the coronary catheter her arterial waveforms and pressures improved/normal ize. However, she was noted to subsequently develop spontaneous ventricular fibrillation. She required transient BLS/ACLS protocol with CPR and defibrillation x1. She immediately regained sinus rhythm and appeared to be hemodynamically stable. She was awake and alert with no obvious subsequent c ompromise. She subsequently proceeded to PTCA/BRENT to the ostial RCA with good angiographic results. She remained in the hospital overnight for continued cardiovascular monitoring. She did have chest discomfort thought related to her brief CPR. She did have sensation of shortness of breath and dyspnea thought related to diminished inspiratory effort as well as potentially an element of IV fluid accumulation. She underwent evaluation with PA and lateral chest x-ray with no acute findings. She was treated with anti-inflammatory therapy and IV diuretics. She was evaluated late yesterday evening and appeared to be resting much more comfortably and breathing much more comfortably. This morning she is awake and alert and has been up out of bed to the bedside commode. She states that her chest does feel better and overall her breathing has improved. She is very concerned about switching to alternative medications with respect to antiplatelet therapy. She states she did well on clopidogrel/Plavix in the past. She is concerned that the ticagrelor/Brilinta she received last night and this morning is contributing to her shortness of breath and dyspnea. She would like to return to the clopidogrel/Plavix she had in the past. She also is concerned about receiving a beta-moises and its potential adverse events on her respiratory status. Otherwise, she states she feels improved. She wants to be released home for continued outpatient follow-up. She knows she is to be scheduled for a staged PCI of the LAD distribution. She also has future outpatient PFTs scheduled which are going to be placed on temporary hold while she recuperates from her recent event with respect to her chest soreness so she can hopefully perform adequately during a PFT evaluation and not be limited by chest soreness. Thus, she will continue medical therapy. Her antiplatelet therapy will be adjus naren to clopidogrel/Plavix. She will temporarily hold on the addition of beta- moises therapy. She will continue her other medications. She will continue with future outpatient cardiovascular follow-up. The above was discussed with the patient and her family at length multiple times yesterday as well as this morning. They were given the opportunity to ask questions and have them answered as best as possible. They stated their questions have been answered. They stated they appreciate the evaluation, care, and attention, that the patient received. Physical Exam Const alert, oriented x3 and no apparent distress HEENT normocephalic, head/scalp atraumatic and hearing grossly normal bilaterally Eyes PERRL, EOMs intact bilaterally, conjunctivae normal and no scleral icterus Neck full ROM, supple and no JVD Carotids: normal carotid upstroke Chest Chest Narrative: Tenderness to palpation over the sternum and rib cage Resp clear to auscultation bilaterally Resp Narrative: Diminished inspiratory effort Cardio regular rate, regular rhythm, S1 normal heart sound and S2 normal heart sound GI normal to inspection, nondistended, normoactive bowel sounds Extremity no pedal edema Peripheral Pulses: Yes radial pulses present right (No bruits; No hematoma) 2+ Skin no rashes or lesions noted Psych mental status grossly normal Weight / BMI Weight Weight: 168 lb Body Mass Index (BMI) 27.9 ABG / Lab / Microbiology Data Result Diagrams: 10/13/21 06:17 10/13/21 06:17 Laboratory: Laboratory Results - last 24 hr 10/13/21 06:17: WBC 9.7, RBC 4.31, Hgb 13.2, Hct 39.3, MCV 91.2, MCH 30.6, MCHC 33.6, RDW Std Deviation 43.4, RDW Coeff of Noel 13.0, Plt Count 272, MPV 9.9 10/13/21 06:17: Sodium 135 L, Potassium 3.1 L, Chloride 99, Carbon Dioxide 32.0, Anion Gap 4 L, BUN 11, Creatinine 0.59, Estim Creat Clear Calc 44.41, Est GFR (MDRD) Af Amer 128, Est GFR (MDRD) Non-Af 106, BUN/Creatinine Ratio 18.6, Glucose 99, Calcium 8.3 L, Total Bilirubin 0.30, AST 15, ALT 20, Alkaline Phosphatase 66, Total Protein 6.0 L, Albumin 3.0 L, Globulin 3.0, Albumin/Globulin Ratio 1.0 Radiography Diagnostic Testing: Radiology Impression Chest X-Ray 10/12/21 17:41 IMPRESSION: Degenerative changes, as described above. No demonstrated acute cardiopulmonary process. Electronically Signed: Fahad Granados DO at 21:37 EDT Reading Location ID and State: [address] [place] [address] Tel [phone], Service support , D/C Instructions Discharge Diet: Low fat / Low cholesterol May resume sexual activity in: 1-2 weeks Weight Bearing Status: - (avoid heavy exertional activity x 1-2 weeks) Call your doctor if your incision/area has: Continuous Slow Oozing, Sudden Increased Bleeding, Increased Pain/ Swelling, Increased Redness, Foul Smelling Discharge and Swelling at the incision site Call your doctor if you observe: Fever of 101 or Higher, Shortness of breath, Fainting spells, Chest pain and Increased palpitations (irregular heartbeat) Cleanse incision/area with: Soap & Water Please Follow Up With: Ervin Mejia MD Meaningful Use Info Meaningful Use Diagnoses (Choose all that apply): None applicable Discharge Plan Admission Admit Date/Time: 10/12/21 13:00 Primary Reason for Your Visit: Abnormal stress test Attending Provider: Ervin Mejia Primary Care Provider: Marlene Smart Discharge Orders/Prescriptions Prescriptions: New clopidogrel 75 mg Tablet 75 mg PO DAILY Qty: 0 0RF Continued nitroglycerin 0.4 mg tablet, sublingual 0.4 mg SUBLINGUAL Q5M PRN (Reason: chest pain) Label Comments: every 5 minutes x 3 doses hydrocodone-acetaminophen [[place]] 5-325 mg tablet 1 tab PO BID PRN (Reason: pain) Label Comments: aspirin [Adult Low Dose Aspirin] 81 mg tablet,delayed release (DR/EC) 81 mg PO QDAY hydrochlorothiazide 12.5 mg capsule 12.5 mg PO QDAY Qty: 90 3RF rosuvastatin [Crestor] 5 mg tablet 5 mg PO QHS losartan 25 mg tablet 25 mg PO QHS Referrals / Follow Up: Marlene Smart MD [Primary Care Provider] - Ervin Mejia MD [Med Staff - Active Staff] -
--- NOTE | 2021-10-13 09:56 | PHA.DC.MC ---
Pharmacy Service has performed discharge medication reconciliation and counseling for this patient. 1. CLOPIDOGREL 75MG PO DAILY The patient's discharge medication list was reviewed for discrepancies and discrepancies were resolved. Home Medications aspirin 81 mg tablet,delayed release (Adult Low Dose Aspirin) 81 mg PO QDAY 01/23/17 hydrocodone-acetaminophen 5-325mg 5mg-325mg ([place]) 1 tab PO BID PRN pain 01/23/17 nitroglycerin 0.4 mg sublingual tablet 0.4 mg sublingual Q5M PRN chest pain 01/23/17 hydrochlorothiazide 12.5 mg capsule 12.5 mg PO QDAY #90 caps 04/25/17 rosuvastatin 5 mg tablet (Crestor) 5 mg PO QHS 08/31/18 losartan 25 mg tablet 25 mg PO QHS 07/26/19 clopidogrel 75 mg tablet (Plavix) 75 mg PO DAILY #90 tabs 10/13/21 The patient was counseled on the following discharge medications and changes in medications for homegoing were reviewed. The Reason for Use, instructions for use, and potential side effects were reviewed for all new medications. The patient's questions regarding all of their medications were answered. The patient was able to verbally demonstrate an understanding of their discharge medications. Patient counseled by hospital pharmacy directorGio.
--- NOTE | 2021-10-13 10:00 | EKG12_ITS ---
Test Reason : PCI Blood Pressure : / mmHG Vent. Rate : 061 BPM Atrial Rate : 061 BPM P-R Int : 178 ms QRS Dur : 082 ms QT Int : 414 ms P-R-T Axes : 067 063 057 degrees QTc Int : 416 ms Normal sinus rhythm Normal ECG Confirmed by FE DALE, ERVIN ([id number]), editorial specialist ANUJ FORTUNE ([id number]) on 10/19/2021 8:06:19 AM Referred By: Ervin Miramontes Confirmed By:ERVIN MIRAMONTES MD
[2021-10-13] MEDS: Ketorolac 30 MG/ML Syringe IV (10:54)
[2021-10-13] MEDS: Clopidogrel Bisulfate 300 MG Tablet PO (10:55)
== END 2021-10-13 09:23 | disposition home or self-care (01) ==
LOC: PCU 14:10
PROVIDERS: Admitting Provider Specialist; PCP Internal Medicine; Referring Provider Internal Medicine Cardiovascular Disease; Visit Provider Internal Medicine Cardiovascular Disease
DX: I25.10 Atherosclerotic heart disease of native coronary artery without angina pectoris (principal); J44.9 Chronic obstructive pulmonary disease, unspecified; R94.39 Abnormal result of other cardiovascular function study; I49.3 Ventricular premature depolarization; E78.2 Mixed hyperlipidemia; I25.5 Ischemic cardiomyopathy; I10 Essential (primary) hypertension; Z79.899 Other long term (current) drug therapy; Z79.82 Long term (current) use of aspirin; Z95.5 Presence of coronary angioplasty implant and graft; R06.02 Shortness of breath
CPT/HCPCS: 36415; 71046; 80053; 85027; 92928; 93005; 93454; 96374; 96375; 96376; 99152; 99153; 99218; C1725; C1874; C1887; J7030; J7040; Q9967; A4216; C1769; C1894; C9600; G0378; J1940

== ENCOUNTER → 2021-12-30 | Outpatient (CLI) | payer MEDICARE, MEDICAID, SELFPAY ==
[2021-12-30 11:48] LABS: Absolute Lymphocyte Count 1.31 X10^3/uL (0.83-4.51); Absolute Neutrophil Count 4.9 X10^3/uL (2.0-7.7); Basophil# 0.04 X10^3/uL; Basophil% 0.6 % (0-1); Eosinophil# 0.06 X10^3/uL; Eosinophils% 0.9 % (0-5); Hematocrit 35.5 % (37-47); Hemoglobin 11.5 g/dL (12.0-15.0); Lymphocyte # 1.31 X10^3/ul (0.83-4.51); Lymphocyte % 19.5 % (19-41); Mean Corp Hgb Conc 32.4 g/dL (32-36); Mean Corpuscular Hgb 30.3 pg (27.0-32.0); Mean Corpuscular Volume 93.7 fL (81-99); Mean Platelet Vol. 8.9 fl (6.2-12.0); Monocyte# 0.39 X10^3/uL; Monocyte% 5.8 % (0-10); NRBC Flagged by Analyzer 0 % (0-5); Neutrophil # 4.89 X10^3/uL (2.7-7.7); Neutrophil % 72.9 % (47-70); Platelet Count 425 K/mm3 (150-450); RBC Distribution Width CV 13.2 % (11.6-14.6); RBC Distribution Width SD 45.3 fl (35.1-43.9); Red Blood Count 3.79 M/mm3 (4.2-5.4); White Blood Count 6.7 K/mm3 (4.4-11.0)
[2021-12-30 12:13] LABS: Anion Gap 6 (5-15); BUN 8 mg/dL (7-18); BUN/Creat Ratio 15.5 RATIO (10-20); Calcium,Total 8.8 mg/dL (8.5-10.1); Chloride 98 mmol/L (98-107); Creatinine, Serum 0.52 mg/dL (0.55-1.02); EST Glomerular Filtration Rate 124 mL/min (>60); Est Glom Filt Rate - Afr Amer 149 mL/min (>60); Glucose 105 mg/dL (74-106); Sodium Level 134 mmol/L (136-145)
== END | disposition home or self-care (01) ==
LOC: LAB 11:25
PROVIDERS: PCP Internal Medicine; Visit Provider Nurse Practitioner Gerontology
DX: K92.1 Melena (principal); M54.50 Low back pain, unspecified; Z95.5 Presence of coronary angioplasty implant and graft; I25.10 Atherosclerotic heart disease of native coronary artery without angina pectoris
CPT/HCPCS: 80048; 85025

== ENCOUNTER 2022-01-26 11:01 | Emergency (ER) | payer MEDICARE, MEDICAID, SELFPAY ==
[2022-01-26 11:01] VITALS: BP 116/64; PULSE 92; RESP 17; TEMP 36; O2SAT 99; BMI 27.6
--- NOTE | 2022-01-26 11:19 | CT_ITS ---
STUDY: CT ABDOMEN AND PELVIS WITHOUT CONTRAST REASON FOR EXAM: Female, 76 years old. LEFT FLANK PAIN RADIATION DOSAGE (If Supplied By Facility): CTDIvol = ( 10.68 ) mGy, DLP = ( 455.54 ) mGycm TECHNIQUE: Transaxial images were obtained from the dome of the diaphragm to the symphysis pubis without oral contrast, and without intravenous contrast. Sagittal and coronal images were reconstructed. Individualized dose optimization techniques were used for this CT. COMPARISON: Comparison is made with prior study dated 09/17/2012. FINDINGS: The visualized lung bases are unremarkable. Coronary artery calcification. Normal liver. Normal gallbladder and extrahepatic biliary system. There are multiple benign calcified granulomata of the spleen. Normal pancreas. There is symmetric enlargement of the adrenal glands suggesting adrenal hyperplasia. Normal right kidney. Normal left kidney. Normal visualized stomach. Normal small intestine. There is diverticulosis, with thickening of the colon wall, and pericolonic inflammation changes consistent with acute diverticulitis. The appendix is visualized and appears normal. There is diffuse atherosclerotic calcification of the abdominal aorta. Mild dilatation of the distal aorta with a transverse dimension of 3.1 cm the Normal inferior vena cava. Normal retroperitoneum. Normal urinary bladder. There is absence of the uterus consistent with a prior hysterectomy. Normal abdominal wall. There are degenerative changes of the visualized lumbar spine. CT/Abdomen/Pelvis without Cont IMPRESSION: Mild degree of the diverticulitis of the distal descending colon and sigmoid colon. Stable adrenal hyperplasia. Electronically Signed: Wei Wood MD at 12:04 EST ,
[2022-01-26 11:21] VITALS: BP 116/64; PULSE 92; RESP 17; TEMP 36; O2SAT 99
--- NOTE | 2022-01-26 11:21 | EDS_ITS ---
HPI History of Present Illness Chief Complaint: Flank Pain Narrative Narrative: Any 6-year-old female past medical history of coronary artery disease states she supposed to be stented tomorrow morning by Dr. Tao Sloan presents with left flank pain that she is had over the last 3 days. She states that on Monday she began having pain around her left kidney which lasted 3 hours. She was able to go to sleep and then woke the next morning. Throughout the day she developed another 3-hour episode of left flank pain. She denies any dysuria or hematuria. No fevers or chills. No chest pain. She took Tylenol last evening, and when she awoke today, whenever she moves she has pain in her left flank. Hurts when you touch the area. She presents because of the pain in her left flank area. Denies other symptoms. [facility] Medical History Abnormal stress test Anxiety Atherosclerotic heart disease of [place] coronary artery without angina pectoris Cataracts, bilateral COPD (chronic obstructive pulmonary disease) Diarrhea Diverticulosis Essential hypertension hemorroids History of diverticulitis of colon Ischemic cardiomyopathy Mixed hyperlipidemia Nicotine addiction Nicotine dependence Old inferior wall myocardial infarction Urinary tract infection Home Medications aspirin 81 mg tablet,delayed release (Adult Low Dose Aspirin) 81 mg PO QDAY 01/23/17 [History Last Taken 10/12/21] nitroglycerin 0.4 mg sublingual tablet 0.4 mg sublingual Q5M PRN chest pain 01/23/17 [History Last Taken Unknown] hydrochlorothiazide 12.5 mg capsule 12.5 mg PO QDAY #90 caps 04/25/17 [Rx Last Taken Unknown] rosuvastatin 5 mg tablet (Crestor) 5 mg PO QHS 08/31/18 [History Last Taken Unknown] losartan 25 mg tablet 25 mg PO QHS 07/26/19 [History Last Taken 10/12/21] clopidogrel 75 mg tablet (Plavix) 75 mg PO DAILY #90 tabs 10/13/21 [Rx Last Taken Unknown] ciprofloxacin HCl 500 mg tablet (Cipro) 500 mg PO BID #20 tabs 01/26/22 [Rx Last Taken Unknown] metronidazole 500 mg tablet 500 mg PO TID #30 tabs 01/26/22 [Rx Last Taken Unknown] oxycodone 5 mg tablet 5 mg PO Q8H PRN pain 3 days #9 tabs 01/26/22 [Rx Last Taken Unknown] Allergy/AdvReac Type Severity Reaction Status Date / Time nitrofurantoin Allergy Itching Verified 01/26/22 11:01 [From Macrobid] Family History Brother CAD (coronary artery disease) mid 40's from [place] Son CAD (coronary artery disease) mid 40's from [place] Father Diabetes Surgical History History of partial hysterectomy Presence of coronary angioplasty implant and graft (~07/17/14) Presence of stent in coronary artery (~10/12/21) Social History Smoking Status: Current every day smoker tobacco type: cigarettes alcohol intake: current details: occasional ROS ROS ED ROS Narrative Constitutional: No fever, no chills. HEENT: No sore throat. No neck pain. No loss of vision. No rhinorrhea. Cardiovascular: No chest pain. No palpitations. No pedal edema. Respiratory: No cough, no shortness of breath. Abdominal: No abdominal pain. No nausea. No vomiting. Genitourinary: No dysuria. No hematuria. Musculoskeletal: No myalgias. No arthralgias. Left flank and back pain. Neurologic: No headaches. No dizziness. No lightheadedness. Skin: No rash. No change in color. Psychiatric: No depression. No anxiety. EXAM Physical Exam Narrative Exam Narrative: Afebrile. Vital signs noted. HEENT: Normocephalic. Atraumatic. PERRL, EOMI. Neck soft and supple. No point tenderness or step off. Cardiovascular: Regular rate and rhythm. No murmurs, rubs, or gallops appreciated. Respiratory: No tachypnea. Lungs clear to auscultation bilaterally. Gastrointestinal: Abdomen soft, nontender, with normoactive bowel sounds. No rebound or guarding. Neurological: Awake. Alert. Nonfocal, nonlateralizing. Skin: No rash. Normal color. No pallor. Musculoskeletal: No pedal edema. Full range of motion extremities. Mild tenderness to palpation left paraspinal musculature/left flank. Const Vital Signs: 01/26/22 11:01 01/26/22 11:21 01/26/22 11:21 Temperature 96.8 F L 96.8 F L Temperature Source Temporal Temporal Pulse Rate 92 92 Respiratory Rate 17 17 Respiratory Effort Normal Non-Labored Respiratory Pattern Normal Blood Pressure 116/64 116/64 Blood Pressure Mean 81 81 Pulse Ox 99 99 Oxygen Delivery Method Room Air Room Air MDM MDM MDM Narrative Medical decision making narrative: Kidney stone work-up was pursued. She was administered morphine 2 mg and Danza drawn for analgesia. She may be having more musculoskeletal low back pain. CBC is grossly normal with a normal white count of 6.0, hemoglobin stable at 7.7 however. Platelet count slightly elevated at 453. Electrolyte panel shows creatinine of 0.54 with a normal BUN of 7. Sodium, potassium, and chloride are normal. Urinalysis shows no evidence of infection. I do not feel antibiotics are indicated. CT flank shows mild distal descending diverticulitis with sigmoid diverticulitis. Patient does not have an elevated white count or fever. She does not really have exquisite left lower quadrant abdominal pain. She was treated with oral antibiotics. I wrote her prescriptions for Cipro, Flagyl, and oxycodone to take for her pain. While I think her low back pain may be more musculoskeletal, I do feel she can be discharged safely home with follow-up. Patient states that she is supposed to have staged PCI tomorrow by Dr. Rivera. She wanted to make sure that she could take these medications and still have her catheterization. I discussed the patient initially with Dr. Marti, then with Dr. Tao Sloan at his suggestion. It was felt that she might need postponement of her heart catheterization. She is to call the office on Monday, 5 days from now to have her staged PCI next week. I do feel that she is stable as she last had her catheterization in September. Return instructions to the emergency department were reviewed. She will follow-up with her primary care physician regarding her diverticulitis. Disposition is discharged home in stable condition. Lab Data Attestation: I reviewed the patient's lab results. Labs: Laboratory Results - last 24 hr 01/26/22 01/26/22 01/26/22 11:17 11:17 12:57 WBC 6.0 RBC 3.04 L Hgb 7.7 L Hct 26.6 L MCV 87.5 MCH 25.3 L MCHC 28.9 L RDW Std Deviation 48.9 H RDW Coeff of Noel 15.2 H Plt Count 453 H MPV 9.0 Immature Gran % (Auto) 0.300 Neut % (Auto) 71.3 H Lymph % (Auto) 20.0 [place] % (Auto) 6.2 Eos % (Auto) 1.7 Baso % (Auto) 0.5 Absolute Neuts (auto) 4.3 Absolute Lymphs (auto) 1.20 Nucleated RBC % 0 Sodium 136 Potassium 3.6 Chloride 100 Carbon Dioxide 30.0 Anion Gap 6 BUN 7 Creatinine 0.54 L Estim Creat Clear Calc 43.74 Est GFR (MDRD) Af Amer 141 Est GFR (MDRD) Non-Af 117 BUN/Creatinine Ratio 13.0 Glucose 110 H Calcium 8.4 L Urine Color Yellow Urine Clarity Clear Urine pH 7.0 Ur Specific [place] 1.010 Urine Protein Negative Urine Glucose (UA) Normal Urine Ketones Negative Urine Occult Blood Negative Urine Nitrite Negative Urine Bilirubin Negative Urine Urobilinogen Normal Ur Leukocyte Esterase 25 H Urine RBC 0 SEEN Urine WBC 0 SEEN Ur Squamous Epith Cells 0-5 SEEN Urine Bacteria 1+ Urine Mucus 0 SEEN Radiography Diagnostic Testing: Clinical Impression(s) from Imaging Studies Abdomen/Pelvis CT 01/26/22 11:19 IMPRESSION: Mild degree of the diverticulitis of the distal descending colon and sigmoid colon. Stable adrenal hyperplasia. Electronically Signed: Wei Wood MD at 12:04 EST , Discharge Plan Triage Chief Complaint: Flank Pain ED Provider: Wayne Gonsalves Dx/Rx/DC Orders Clinical Impression: Diverticulitis, Flank pain, CAD (coronary artery disease) Instructions: ED Diverticulitis, ED Flank Pain, Uncertain Cause Prescriptions: New ciprofloxacin HCl [Cipro] 500 mg tablet 500 mg PO BID Qty: 20 0RF metronidazole 500 mg tablet 500 mg PO TID Qty: 30 0RF oxycodone 5 mg tablet 5 mg PO Q8H PRN (Reason: pain) 3 Days Qty: 9 0RF No Action nitroglycerin 0.4 mg tablet, sublingual 0.4 mg SUBLINGUAL Q5M PRN (Reason: chest pain) Label Comments: every 5 minutes x 3 doses aspirin [Adult Low Dose Aspirin] 81 mg tablet,delayed release (DR/EC) 81 mg PO QDAY hydrochlorothiazide 12.5 mg capsule 12.5 mg PO QDAY Qty: 90 3RF rosuvastatin [Crestor] 5 mg tablet 5 mg PO QHS losartan 25 mg tablet 25 mg PO QHS clopidogrel [Plavix] 75 mg tablet 75 mg PO DAILY Qty: 90 3RF Primary Care Provider: Marlene Smart Referrals: Marlene Smart MD [Primary Care Provider] - Disposition Disposition: Home, Self Care
[2022-01-26 11:30] LABS: Absolute Neutrophil Count 4.3 X10^3/uL (2.0-7.7); Basophil# 0.03 X10^3/uL; Basophil% 0.5 % (0-1); Eosinophils% 1.7 % (0-5); Hematocrit 26.6 % (37-47); Hemoglobin 7.7 g/dL (12.0-15.0); Mean Corp Hgb Conc 28.9 g/dL (32-36); Mean Corpuscular Hgb 25.3 pg (27.0-32.0); Mean Corpuscular Volume 87.5 fL (81-99); Monocyte# 0.37 X10^3/uL; Monocyte% 6.2 % (0-10); NRBC Flagged by Analyzer 0 % (0-5); Neutrophil # 4.29 X10^3/uL (2.7-7.7); Neutrophil % 71.3 % (47-70); Platelet Count 453 K/mm3 (150-450); RBC Distribution Width CV 15.2 % (11.6-14.6); RBC Distribution Width SD 48.9 fl (35.1-43.9); Red Blood Count 3.04 M/mm3 (4.2-5.4)
[2022-01-26] MEDS: Morphine 2 MG/ML Syringe IV (11:37)
[2022-01-26] MEDS: 0.9% Normal Saline 1,000 ML 250 ML IV (11:37)
[2022-01-26] MEDS: Ondansetron 4 MG/2 ML Vial IV (11:37)
[2022-01-26 11:43] LABS: Anion Gap 6 (5-15); BUN 7 mg/dL (7-18); Calcium,Total 8.4 mg/dL (8.5-10.1); Chloride 100 mmol/L (98-107); Creatinine, Serum 0.54 mg/dL (0.55-1.02); EST Glomerular Filtration Rate 117 mL/min (>60); Est Glom Filt Rate - Afr Amer 141 mL/min (>60); Estimated Creatinine Clearance 43.74 ml/min; Glucose 110 mg/dL (74-106); Potassium 3.6 mmol/L (3.5-5.1); Sodium Level 136 mmol/L (136-145)
[2022-01-26 13:10] LABS: Mucous, Urine 0 SEEN /hpf (<or=2+); Red Blood Cells-Urine 0 SEEN /hpf (0-5); White Blood Cells 0 SEEN /hpf (0-5)
[2022-01-26 13:15] LABS: Color, Urine Yellow (Yellow); Glucose, Dipstick Normal (Normal); Ketone-Dipstick Negative (Negative); Leukocyte Esterase-Dipstick 25 /ul (Negative); Nitrite-Dipstick Negative (Negative); Occult Blood-Urine Negative /ul (Negative); Protein-Dipstick Negative (Negative); Urine Bilirubin Dipstick Negative (Negative); Urine Clarity Clear (Clear); Urine Urobilinogen Normal (Normal)
[2022-01-26 13:24] LABS: Bacteria 1+ /hpf (None Seen); Squamous Epithelial Cells - UA 0-5 SEEN /hpf (5-10)
[2022-01-26] MEDS: metroNIDAZOLE 500 MG Tablet PO (14:11)
[2022-01-26] MEDS: Ciprofloxacin 500 MG Tablet PO (14:11)
[2022-01-26] MEDS: Morphine 4 MG/ML Syringe IV (14:11)
[2022-01-26 14:21] VITALS: PULSE 88; RESP 16; O2SAT 98
== END 2022-01-26 14:22 | disposition home or self-care (01) ==
PROVIDERS: Emergency Provider Emergency Medicine; PCP Internal Medicine; Visit Provider Emergency Medicine
DX: K57.32 Diverticulitis of large intestine without perforation or abscess without bleeding (principal); J44.9 Chronic obstructive pulmonary disease, unspecified; I25.10 Atherosclerotic heart disease of native coronary artery without angina pectoris; I10 Essential (primary) hypertension; M54.50 Low back pain, unspecified; E78.2 Mixed hyperlipidemia; F17.210 Nicotine dependence, cigarettes, uncomplicated
CPT/HCPCS: 74176; 80048; 81001; 85025; 96361; 96374; 96375; 96376; 99285; J7030; A4216; J2405

== ENCOUNTER 2022-03-04 17:00 | Emergency (ER) | payer MEDICARE, MEDICAID, SELFPAY ==
[2022-03-04] VITALS (13 sets, daily range): BP systolic 102–128; BP diastolic 54–109; PULSE 62–78; RESP 16–23; TEMP 36.3–36.9; O2SAT 95–99; BMI 27.9
--- NOTE | 2022-03-04 17:46 | EX.ED.DYSGE1 ---
HPI History of Present Illness Chief Complaint: Abn Labs Informant: patient Narrative Narrative: Patient was referred in here for blood transfusion. This patient had heart cath back in September. They did 1 out of 2 stents because she had cardiac dysrhythmias and had to be cardioverted after the first stent. After that heart catheterization, she had several days to a week or so of black stools. She is not sure if it was right after the heart cath or a month or so after. She has not had any black stools for over a month. She is on Plavix and aspirin. She has no known bleeding. She had outpatient blood work by cardiology today that showed a hemoglobin of 6.5. This is down from 7.7 on 26 January. I did review prior labs that were in the computer from December, and I reviewed all the labs that were done earlier today as an outpatient. Patient has been having overall weakness and some dyspnea on exertion and been eating ice for 2 months. She is not on iron supplementation. She adamantly denies any black or bloody bowel movements now. She has no abdominal pain or cramping. I also reviewed her prior visit to the ED where she was treated for diverticulitis. I am wondering if she may have had some bleeding with that. Those symptoms and that discomfort is gone and her antibiotics are finished. Patient plans to have a heart cath about 1 week from today. [facility] Medical History Abnormal stress test Anxiety Atherosclerotic heart disease of [place] coronary artery without angina pectoris Cataracts, bilateral COPD (chronic obstructive pulmonary disease) Diarrhea Diverticulosis Essential hypertension hemorroids History of diverticulitis of colon Ischemic cardiomyopathy Mixed hyperlipidemia Nicotine addiction Nicotine dependence Old inferior wall myocardial infarction Urinary tract infection Home Medications aspirin 81 mg tablet,delayed release (Adult Low Dose Aspirin) 81 mg PO QDAY 01/23/17 [History Last Taken 10/12/21] nitroglycerin 0.4 mg sublingual tablet 0.4 mg sublingual Q5M PRN chest pain 01/23/17 [History Last Taken Unknown] hydrochlorothiazide 12.5 mg capsule 12.5 mg PO QDAY #90 caps 04/25/17 [Rx Last Taken Unknown] rosuvastatin 5 mg tablet (Crestor) 5 mg PO QHS 08/31/18 [History Last Taken Unknown] losartan 25 mg tablet 25 mg PO QHS 07/26/19 [History Last Taken 10/12/21] clopidogrel 75 mg tablet (Plavix) 75 mg PO DAILY #90 tabs 10/13/21 [Rx Last Taken Unknown] oxycodone 5 mg tablet 5 mg PO Q8H PRN pain 3 days #9 tabs 01/26/22 [Rx Last Taken Unknown] albuterol sulfate 90 mcg/actuation aerosol inhaler 2 puff inhalation Q4H PRN shortness of breath or wheezing 03/04/22 [History Last Taken Unknown] Allergy/AdvReac Type Severity Reaction Status Date / Time nitrofurantoin Allergy Itching Verified 03/04/22 17:01 [From Macrobid] acetaminophen [From Percocet] AdvReac Upset Verified 03/04/22 17:01 Stomach oxycodone [From Percocet] AdvReac Upset Verified 03/04/22 17:01 Stomach Family History Brother CAD (coronary artery disease) mid 40's from [place] Son CAD (coronary artery disease) mid 40's from [place] Father Diabetes Surgical History History of partial hysterectomy Presence of coronary angioplasty implant and graft (~07/17/14) Presence of stent in coronary artery (~10/12/21) Social History Smoking Status: Current every day smoker tobacco type: cigarettes alcohol intake: current details: occasional substance use type: does not use caffeine: Yes Type: coffee Number of servings: 1 ROS ROS ED Constitutional Constitutional ED: Denies fever(s) or subjective Eyes Eyes: Denies change in vision ENT ENT ED: Denies rhinorrhea or sore throat Cardiovascular Cardiovascular: Denies chest pain, palpitations or racing heartbeat Respiratory/Chest Respiratory/Chest: Reports dyspnea on exertion; Denies cough Gastrointestinal Gastrointestinal: Denies abdominal pain or melena Genitourinary Genitourinary ED: Denies hematuria Musculoskeletal Musculoskeletal: Denies myalgias Integumentary Denies rash Neurologic Neurologic: Denies headache(s) Psychiatric Psychiatric: Denies anxiety Endocrine Endocrinology: Denies polydipsia or polyuria Hematologic/Lymphatic Hematologic/Lymphatic: Reports anemia, easy bleeding and easy bruising Allergic/Immunologic Allergic/Immunologic ED: Denies urticaria EXAM Physical Exam Const Vital Signs: 03/04/22 17:02 03/04/22 17:07 03/04/22 19:26 Temperature 97.4 F L Temperature Source Temporal Pulse Rate 76 71 Respiratory Rate 17 18 Respiratory Effort Normal Blood Pressure 112/54 L Blood Pressure Mean 73 Blood Pressure Source Blood Pressure Position Blood Pressure Location Pulse Ox 99 96 Oxygen Delivery Method Room Air Room Air 03/04/22 19:49 03/04/22 20:00 03/04/22 20:05 Temperature 97.8 F 97.8 F 97.8 F Temperature Source Oral Oral Oral Pulse Rate 69 70 73 Respiratory Rate 18 18 16 Respiratory Effort Blood Pressure 117/94 H 117/59 L 117/59 L Blood Pressure Mean 101 78 78 Blood Pressure Source Monitor Monitor Blood Pressure Position Sitting Sitting Blood Pressure Location Right Arm Right Arm Pulse Ox 97 97 98 Oxygen Delivery Method Room Air Room Air Room Air 03/04/22 20:20 03/04/22 21:20 03/04/22 21:59 Temperature 98.4 F 98.1 F 98.0 F Temperature Source Oral Oral Oral Pulse Rate 78 66 68 Respiratory Rate 18 16 18 Respiratory Effort Blood Pressure 109/64 102/77 117/78 Blood Pressure Mean 79 85 91 Blood Pressure Source Monitor Monitor Monitor Blood Pressure Position Sitting Sitting Blood Pressure Location Right Arm Right Arm Pulse Ox 98 98 96 Oxygen Delivery Method Room Air Room Air Room Air 03/04/22 22:03 03/04/22 22:07 03/04/22 22:18 Temperature 98.0 F 98.0 F 98.3 F Temperature Source Oral Oral Oral Pulse Rate 68 70 70 Respiratory Rate 16 19 H 20 H Respiratory Effort Blood Pressure 117/78 117/78 113/67 Blood Pressure Mean 91 91 82 Blood Pressure Source Monitor Monitor Blood Pressure Position Sitting Blood Pressure Location Right Arm Right Arm Pulse Ox 96 96 95 Oxygen Delivery Method Room Air Room Air Room Air Positive well nourished and well developed General Appearance ED: well developed, NAD and pallor HEENT Reports moist mucous membranes HEENT Narrative: Patient does have pale mucous membranes and conjunctive appear Negative for trauma Eyes General Eye ED: Yes pale conjunctiva Neck no JVD Neck Narrative: No history of congestive heart failure per patient Chest Wall inspection of chest normal and palpation of chest normal Chest Narrative: No pacer Resp normal respiratory effort Auscultation: Negative for rales, rhonchi or wheezes Cardio regular rate, regular rhythm and no murmurs GI normal to inspection, nondistended, normoactive bowel sounds and non-tender Back/Spine no CVA tenderness Extremity normal to inspection General Extremety ED: Negative for tenderness Neuro oriented x3 and no sensory deficits noted Psych mental status grossly normal Skin General Skin Exam: pallor; Negative for jaundice MDM MDM MDM Narrative Medical decision making narrative: Patient had outpatient blood work today. I reviewed the prior blood work that was done. With her complaints, normally I would have ordered a CBC, electrolytes, coagulation studies at least. These were already done today do so I do not think they need to be repeated. She did have low hemoglobin at 6.5. This is a drop from prior hemoglobin of 7.7. With her symptoms, low blood counts we did discuss transfusion. She does want this. Risks and benefits were gone over. Her last echo had an ejection fraction about 65%. She has no history of CHF. Patient's been getting her blood work. She has about an hour left to go on her second unit. She is comfortable and breathing well. No symptoms. She is feeling better and more energetic. She has been eating here. Plan will be to get her home as long as she is not having any issues. There is no indication that she will need diuretic after this unit but we can consider that if she has any dyspnea or signs of failure. I believe this is unlikely. Her heart disease and being on Plavix directly impact her complaint today. By her history she did have GI bleeding but is not having that now. But she is on blood thinners. With her heart disease they need to be able to do heart catheterization they would like the blood counts up. She is also at higher risk for angina with the low hemoglobin although she is not having those symptoms. Lab Data Attestation: I reviewed the patient's lab results. Labs: Laboratory Results - last 24 hr 03/04/22 18:07 Blood Type A NEGATIVE Antibody Screen NEGATIVE Crossmatch See Detail Discharge Plan Triage Chief Complaint: Abn Labs ED Provider: Malvin Pruitt Dx/Rx/DC Orders Clinical Impression: Symptomatic anemia, History of coronary artery disease Instructions: Anemia Prescriptions: No Action nitroglycerin 0.4 mg tablet, sublingual 0.4 mg SUBLINGUAL Q5M PRN (Reason: chest pain) Label Comments: every 5 minutes x 3 doses aspirin [Adult Low Dose Aspirin] 81 mg tablet,delayed release (DR/EC) 81 mg PO QDAY hydrochlorothiazide 12.5 mg capsule 12.5 mg PO QDAY Qty: 90 3RF rosuvastatin [Crestor] 5 mg tablet 5 mg PO QHS albuterol sulfate 90 mcg/actuation HFA aerosol inhaler 2 puff inhalation Q4H PRN (Reason: shortness of breath or wheezing) losartan 25 mg tablet 25 mg PO QHS oxycodone 5 mg tablet 5 mg PO Q8H PRN (Reason: pain) 3 Days Qty: 9 0RF clopidogrel [Plavix] 75 mg tablet 75 mg PO DAILY Qty: 90 3RF Primary Care Provider: Marlene Smart Referrals: Marlene Smart MD [Primary Care Provider] - Activity Restrictions/Additional Instructions: Follow-up with your corporate sales manager as scheduled. Disposition Disposition: Home, Self Care
[2022-03-04] MEDS: Lidocaine 5% Patch 1 PATCH TOPICAL (20:30)
== END 2022-03-05 00:14 | disposition home or self-care (01) ==
PROVIDERS: Emergency Provider Emergency Medicine; PCP Internal Medicine; Referring Provider Emergency Medicine; Visit Provider Emergency Medicine
DX: D64.9 Anemia, unspecified (principal); J44.9 Chronic obstructive pulmonary disease, unspecified; I10 Essential (primary) hypertension; F17.210 Nicotine dependence, cigarettes, uncomplicated; I25.10 Atherosclerotic heart disease of native coronary artery without angina pectoris; K57.92 Diverticulitis of intestine, part unspecified, without perforation or abscess without bleeding; E78.2 Mixed hyperlipidemia; Z79.01 Long term (current) use of anticoagulants; R06.09 Other forms of dyspnea; Z95.5 Presence of coronary angioplasty implant and graft; Z79.82 Long term (current) use of aspirin
CPT/HCPCS: 36415; 36430; 71046; 80048; 83880; 84703; 85025; 85610; 85730; 86850; 86900; 86901; 86920; 86922; 99282; J7050; P9016; A4216

== ENCOUNTER → 2022-03-04 | Outpatient (CLI) | payer MEDICARE, MEDICAID, SELFPAY ==
--- NOTE | 2022-03-04 11:48 | RAD_ITS ---
INDICATION: ALFREDO EXAMINATION/TECHNIQUE: X-RAY - XR Chest 2 Views COMPARISON: October 12, 2021 FINDINGS: LINES/DEVICES: None. LUNGS: No consolidation, edema or effusion. Calcified granuloma in the superior segment of left lower lobe. No pneumothorax. MEDIASTINUM AND CARDIOVASCULAR STRUCTURES: Cardiac silhouette not enlarged. Central airways and mediastinal contour are unremarkable. Mildly calcified aortic knob.. Tiny calcified left hilar nodes BONES AND SOFT TISSUES: Dorsal spine demonstrates degenerative change. 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 No radiographic evidence of acute cardiopulmonary disease. Electronically Signed: Walt Ryan MD at 18:10 EST Reading Location ID and State: [facility] / [place] , Service support ,
[2022-03-04 12:18] LABS: Absolute Lymphocyte Count 1.74 X10^3/uL (0.83-4.51); Absolute Neutrophil Count 4.7 X10^3/uL (2.0-7.7); Basophil# 0.03 X10^3/uL; Basophil% 0.4 % (0-1); Eosinophils% 1.4 % (0-5); Hematocrit 24.1 % (37-47); Hemoglobin 6.5 g/dL (12.0-15.0); Lymphocyte # 1.74 X10^3/ul (0.83-4.51); Lymphocyte % 24.5 % (19-41); Mean Corpuscular Hgb 20.2 pg (27.0-32.0); Mean Corpuscular Volume 75.1 fL (81-99); Mean Platelet Vol. 9.1 fl (6.2-12.0); Monocyte# 0.54 X10^3/uL; Monocyte% 7.6 % (0-10); NRBC Flagged by Analyzer 0.3 % (0-5); Neutrophil # 4.65 X10^3/uL (2.7-7.7); Neutrophil % 65.4 % (47-70); Platelet Count 403 K/mm3 (150-450); RBC Distribution Width CV 19.6 % (11.6-14.6); RBC Distribution Width SD 53.5 fl (35.1-43.9); Red Blood Count 3.21 M/mm3 (4.2-5.4); White Blood Count 7.1 K/mm3 (4.4-11.0)
[2022-03-04 12:28] LABS: Prothrombin Time (Protime)PT. 13.3 SECONDS (11.7-14.9)
[2022-03-04 12:29] LABS: Partial Thromboplast Time 26.3 Seconds (24.1-36.2)
[2022-03-04 12:39] LABS: Internal QC Validated? YES +Cl - CLEAR BKGD; Pregnancy, Serum, hCG Quali. NEGATIVE Negative
[2022-03-04 12:40] LABS: BNP,B-Type NATRIURETIC PEPTIDE 27.6 pg/mL (0-100)
[2022-03-04 13:03] LABS: Anion Gap 7 (5-15); BUN 12 mg/dL (7-18); BUN/Creat Ratio 22.3 RATIO (10-20); Calcium,Total 8.4 mg/dL (8.5-10.1); Chloride 100 mmol/L (98-107); Creatinine, Serum 0.54 mg/dL (0.55-1.02); EST Glomerular Filtration Rate 117 mL/min (>60); Est Glom Filt Rate - Afr Amer 142 mL/min (>60); Glucose 103 mg/dL (74-106); Potassium 3.3 mmol/L (3.5-5.1); Sodium Level 135 mmol/L (136-145)
== END | disposition home or self-care (01) ==
LOC: RAD 11:46
PROVIDERS: PCP Internal Medicine; Visit Provider Nurse Practitioner Gerontology
DX: I70.0 Atherosclerosis of aorta (principal); I25.10 Atherosclerotic heart disease of native coronary artery without angina pectoris; R55 Syncope and collapse; R06.09 Other forms of dyspnea
CPT/HCPCS: 36415; 71046; 80048; 83880; 84703; 85025; 85610; 85730

== ENCOUNTER → 2022-03-08 | Outpatient (CLI) | payer MEDICARE, MEDICAID, SELFPAY ==
[2022-03-08 11:21] LABS: Hematocrit 32.5 % (37-47); Hemoglobin 9.2 g/dL (12.0-15.0); Mean Corp Hgb Conc 28.3 g/dL (32-36); Mean Corpuscular Hgb 22.4 pg (27.0-32.0); Mean Corpuscular Volume 79.1 fL (81-99); Mean Platelet Vol. 9.4 fl (6.2-12.0); POSITIVE MORPHOLOGY YES; Platelet Count 375 K/mm3 (150-450); RBC Distribution Width CV 20.4 % (11.6-14.6); RBC Distribution Width SD 58.6 fl (35.1-43.9); Red Blood Count 4.11 M/mm3 (4.2-5.4); White Blood Count 7.2 K/mm3 (4.4-11.0)
[2022-03-08 12:00] LABS: Scan Indicated on CBC? Y/N YES- FLAGS NOTED
== END | disposition home or self-care (01) ==
LOC: LAB 10:28
PROVIDERS: PCP Internal Medicine; Visit Provider Internal Medicine Cardiovascular Disease
DX: D64.9 Anemia, unspecified (principal)
CPT/HCPCS: 36415; 85027

== ENCOUNTER → 2022-03-17 | Outpatient (CLI) | payer MEDICARE, MEDICAID, SELFPAY ==
[2022-03-17 15:47] LABS: Hematocrit 31.9 % (37-47); Mean Corp Hgb Conc 28.2 g/dL (32-36); Mean Corpuscular Hgb 22.7 pg (27.0-32.0); Mean Corpuscular Volume 80.4 fL (81-99); Mean Platelet Vol. 9.5 fl (6.2-12.0); POSITIVE MORPHOLOGY YES; Platelet Count 501 K/mm3 (150-450); RBC Distribution Width CV 21.8 % (11.6-14.6); RBC Distribution Width SD 63.1 fl (35.1-43.9); Red Blood Count 3.97 M/mm3 (4.2-5.4); White Blood Count 7.1 K/mm3 (4.4-11.0)
[2022-03-17 16:18] LABS: Scan Indicated on CBC? Y/N YES- FLAGS NOTED
[2022-03-17 16:26] LABS: Anion Gap 6 (5-15); BUN 10 mg/dL (7-18); BUN/Creat Ratio 20.3 RATIO (10-20); Calcium,Total 8.6 mg/dL (8.5-10.1); Chloride 98 mmol/L (98-107); Creatinine, Serum 0.49 mg/dL (0.55-1.02); EST Glomerular Filtration Rate 130 mL/min (>60); Est Glom Filt Rate - Afr Amer 157 mL/min (>60); Glucose 91 mg/dL (74-106); Potassium 3.8 mmol/L (3.5-5.1); Sodium Level 135 mmol/L (136-145)
[2022-03-17 16:46] LABS: Differential Comment SCANNED
== END | disposition home or self-care (01) ==
LOC: LAB 14:23
PROVIDERS: PCP Internal Medicine; Visit Provider Specialist
DX: E87.6 Hypokalemia (principal); D64.9 Anemia, unspecified
CPT/HCPCS: 36415; 80048; 85027

== ENCOUNTER → 2022-03-21 | Outpatient (CLI) | payer MEDICARE, MEDICAID, SELFPAY ==
--- NOTE | 2022-03-21 14:47 | CDU_ITS ---
Reason For Study: Dizziness Rt. Velocities/BP Lt. Velocities/BP Prox CCA 112/29 cm/sec. Prox CCA 100/18 cm/sec. Mid CCA 116/27 cm/sec. Mid CCA 111/21 cm/sec. Dist CCA 118/29 cm/sec. Dist CCA 78/20 cm/sec. Prox ICA 225/66 cm/sec. Prox ICA 204/43 cm/sec. Mid ICA 232/66 cm/sec. Mid ICA 196/38 cm/sec. Dist ICA 170/51 cm/sec. Dist ICA 122/38 cm/sec. Rt. ICA/CCA = 2.0. Lt. ICA/CCA = 1.8. Prox ECA 158/10 cm/sec. Prox ECA 199/35 cm/sec. Rt. Vert. 94/33 cm/sec. Lt. Vert. 90/29 cm/sec. Right Extracranial There is heterogeneous, irregular atherosclerotic plaque noted in the right common carotid artery. There is heterogeneous, irregular atherosclerotic plaque noted in the right internal carotid artery. There is heterogeneous, irregular atherosclerotic plaque noted in the right external carotid artery. Antegrade flow is noted in the right vertebral artery. Left Extracranial There is heterogeneous, irregular atherosclerotic plaque noted in the left common carotid artery. There is heterogeneous, irregular atherosclerotic plaque noted in the left internal carotid artery. There is heterogeneous, irregular atherosclerotic plaque noted in the left external carotid artery. Antegrade flow is noted in the left vertebral artery. Procedure Carotid Duplex 45167. This is a Carotid Duplex examination using B-mode, color flow and specral Doppler. Prelim given to Lois CORNELIUS. Exam performed in department. VL/Carotid Duplex Ultrasound Interpretation Summary Irregular calcific plaque with shadowing at the proximal right internal carotid artery with greater than 70% stenosis. Less than 50% stenosis right external carotid artery Patent and antegrade right vertebral Irregular calcific plaque with shadowing at the proximal left internal carotid artery with 50 to 69% stenosis likely closer to the upper limits of the range. Less than 50% stenosis left external carotid artery Patent and antegrade left vertebral There appears to be progression of disease bilaterally since the previous exami [place] of March 08, 2018 however that examination was also performed with symptoms of vertigo. Ordering Physician: Lois Mcgowan Referring Physician: Marlene Smart Performed By: Whit Bills, GERALDO, RVT
== END | disposition home or self-care (01) ==
LOC: CVS 14:46
PROVIDERS: PCP Internal Medicine; Visit Provider Nurse Practitioner Gerontology
DX: I65.23 Occlusion and stenosis of bilateral carotid arteries (principal); R42 Dizziness and giddiness
CPT/HCPCS: 93880

== ENCOUNTER 2022-03-24 05:11 | Day surgery (SDC) | payer MEDICARE, MEDICAID, SELFPAY ==
--- NOTE | 2022-03-24 | GASB_PTH ---
PATIENT: MANUEL CABEZAS LOC: EN U#:[id number] AGE/SX: 76/F ROOM: RE03/24/[address]: Dr. Elias Meza DO : 1945 BED: DIS: 03/24/2022 SPEC #: [id number] RECD: 03/24/22 11:12 STATUS: MARCO JESSIE #: [id number] KRISTY: 03/24/22 00:[address]: Elias Meza DEPT: SURGICAL PATHOLOGY RECD BY: Elijah Quinteros ENTERED: 03/24/22 11:12 SP TYPE: Gastric Bx DUNIA DR: Dr. Marlene Smart MD Tissues: A - Duodenum, NOS B - Gastric mucous membrane C - Sigmoid colon biopsy Procedures: Surgery Specimen Level IV HEADER OPERATION: Colonoscopy, EGD ([facility]) with electrohemostasis PRE-OP DIAGNOSIS: GI bleed TISSUE SUBMITTED: A ? Duodenum biopsy, B ? Hepatic flexure polyp x3, C ? Sigmoid polyp MICROSCOPIC DIAGNOSIS A. Duodenum, biopsy: Fragment of duodenal mucosa with focal blunting of villi, nonspecific chronic inflammation and Pb gland hyperplasia. B. Hepatic flexure polyp, biopsy: Fragments of tubular adenoma. Fragments of fecal material. C. Sigmoid polyp, biopsy: Fragments of tubular adenoma. ZEB:dhruv 03/25/2022 MICROSCOPIC DESCRIPTION Slides are reviewed. GROSS DESCRIPTION A - Received in fixative is one container labeled with the patient's name and designated duodenum biopsy. The specimen consists of one irregular fragment of light lou soft tissue that measures 0.5 x 0.3 x 0.1 cm. The specimen is totally submitted in one cassette. B - Received in fixative is one container labeled with the patient's name and designated hepatic flexure polyps x2. The specimen consists of multiple irregular fragments of light lou soft tissue mixed with fecal material that in aggregate measure 2.5 x 0.5 x 0.1 cm. The specimen is totally submitted in one cassette. C - Received in fixative is one container labeled with the patient's name and designated sigmoid polyp biopsy. The specimen consists of a lou-pink polyp measuring 0.5 x 0.5 x 0.3 cm. A minute fragment of lou soft tissue is also noted. The specimen is totally submitted in one cassette. / ZEB:dhruv 03/24/2022 TC:1 CPT: 74079 x3
[2022-03-24 05:56] VITALS: BP 99/58; PULSE 70; RESP 16; TEMP 36.6; O2SAT 97; BMI 27.5
[2022-03-24] MEDS: Lactated Ringers 1,000 ML 15 ML IV (06:00)
--- NOTE | 2022-03-24 06:32 | PCM.HP.BLA ---
History and Physical Date of Admission: 03/24/22 MANUEL CABEZAS, is a 76 F who presents to the office today for Initial consult. GI Hx diarrhea, diverticulosis PMH anxiety; COPD; HTN, heart disease, [place], ischemic cardiomyopathy, hyperlipidemia with coronary angioplasty implant/graft 2014 and coronary artery stent 2021. [facility] ED presentation 01.26.22 with flank pain. Imaging revealed diveriulitis for which she was treated with?Cipro/flagyl. ? Ofelia did not continue taking the antibiotics after three days as she noticed dark/bloody stools and felt they were the cause of this. ? [facility] ED presentation 03.04.22 with low hgb (6.5) and a history of black stools. She received 2units PRBC and was discharged home in stable condition. Ofelia established with this clinic 03.09.22 with referral from [facility]. Hgb Trend 11.. 11.5 12.09.10 7.7 03.04.22 6.5 [facility] ED with 2 units PRBC received. 03.08.22 9.2 [facility] has concerns regarding possible GIB in the setting of blood thinners. She is requiring upcoming stent soon to address LAD with significant lesion. ROS Const Constitutional: No anorexia, fatigue, fever(s), weight change or sleep problems Eyes Eyes: No change in vision ENT ENT: No abnormal hearing, difficulty swallowing, mouth lesions, tongue swelling or throat swelling Resp Respiratory: No cough or shortness of breath Cardio Cardiology: No chest pain at rest, chest pain with exertion, shortness of breath or dyspnea on exertion Gastro GI: No difficulty swallowing Genitourinary-Female: No difficulty urinating or burning urination Musc Musculoskeletal: No joint pain, joint swelling, muscle weakness or decreased muscle mass Skin Skin: No hair loss in leg, yellowing of the eye, itchy eyes, rash, skin ulcer or skin swelling Neuro Neurology: No abnormal hearing, abnormal movements, confusion, unsteady gait/balance or memory loss Psych Psychiatric: No anxiety, No confusion and No memory loss Endo Endocrine: No fatigue or weight change Aller/Imm Allergy/Immunologic: No itchy eyes, throat swelling or tongue swelling Dash/Lymp Hematologic/Lymphatic: No easy bleeding, easy bruising or enlarged lymph nodes Exam Const General: cooperative and comfortable Nutritional Appearance: average body habitus and well nourished [facility] Head: normal to inspection Ears: hearing grossly normal bilaterally Nose: external nose normal Face and sinus: normal facial exam Mouth: oral mucosae normal Throat: posterior oropharynx normal Eyes General: appearance normal, both eyes and all related structures Neck Neck: normal visual inspection Chest Chest palpation & inspection: normal inspection of the chest and normal palpation of entire chest wall Resp Effort & Inspection: normal respiratory effort Auscultation: Bilateral: Clear to Auscultation Cardio Palpation: normal PMI Rate: regular rate Rhythm: regular rhythm GI Inspection: normal to inspection Auscultation: normal bowel sounds Percussion: normal to percussion Palpation: no hepatosplenomegaly Skin General: no rashes or lesions noted Neuro General: patient alert Extrem General: normal to inspection Psych Affect: normal affect Quality Reporting Tobacco Screening ([facility] 138) Smoking Status: Current every day smoker Assessment and Plan Assessment and Plan (1) GI bleed: ?Status:?Suspected ?Plan: Common causes of?lower GI bleeding?are diverticular disease, angiodysplasia or angiectasia, neoplasms including colorectal cancer, colitis including Crohn's disease and ulcerative colitis, and benign anorectal lesions such as hemorrhoids, anal fissures and rectal ulcers. She will need to undergo an upper and lower endoscopy in order to evaluate her GI tract.? If those studies are negative then she will need to undergo a capsule endoscopy for evaluation of her small intestines. ?She was explained alternatives, risk, benefits including outstanding bleeding, infection, sepsis, perforation, need for emergent surgery .? She will have an ASA of 3.? Recommendation is to recheck her iron studies, ferritin, TIBC, transferrin, CBC with differential and reticulocyte count in approximately 5 days. I have examined the patient and the H&P has been reviewed. There are no clinical changes since date of exam.
[2022-03-24 07:00] VITALS: BP 114/61; BP 99/58; PULSE 72; RESP 16; TEMP 37.3; O2SAT 94
[2022-03-24 07:05] VITALS: BP 113/62; BP 99/58; PULSE 73; RESP 16; O2SAT 94
[2022-03-24 07:10] VITALS: BP 111/60; BP 99/58; PULSE 72; RESP 16; O2SAT 93
--- NOTE | 2022-03-24 07:12 | OP.CCLET_ITS ---
03/24/2022 Marlene Smart [address] [place] [address] Re : Upper GI endoscopy procedure for [facility] Dear Dr. Smart This procedure was performed on March. My impressions and recommendations are as follows: Impressions : - Normal esophagus. - Normal stomach. - Three bleeding angiodysplastic lesions in the duodenum. Treated with bipolar cautery. - Multiple non-bleeding duodenal ulcers with no stigmata of bleeding. Biopsied. Recommendations : - Discharge patient to home. - Resume previous diet. - Continue present medications. - Await pathology results. My findings are described in the full procedure note, which is enclosed. If I can be of further assistance, please feel free to contact me at . Sincerely, Elias Meza, 03/24/2022 7:11:20 AM This report has been signed electronically.
--- NOTE | 2022-03-24 07:12 | OP.EGD_ITS ---
Patient Name: Saray Henry Procedure Date: 03/24/2022 6:20 AM Date of : 1945 Age: 76 Procedure: Upper GI endoscopy Indications: Iron deficiency anemia, Melena Providers: Elias Meza DO Referring MD: Elias Meza DO Medicines: Monitored Anesthesia Care Patient Profile: This is a 76 year old female. Refer to note in patient chart for documentation of history and physical. Patient has symptoms of acute epigastric abdominal pain. Complications: No immediate complications. Procedure: Pre-Anesthesia Assessment: - Prior to the procedure, a History and Physical was performed, and patient medications and allergies were reviewed. The patient is competent. The risks and benefits of the procedure and the sedation options and risks were discussed with the patient. All questions were answered and informed consent was obtained. Patient identification and proposed procedure were verified by the physician. Mental Status Examination: normal. Prophylactic Antibiotics: The patient does not require prophylactic antibiotics. Prior Anticoagulants: The patient has taken no previous anticoagulant or antiplatelet agents. After reviewing the risks and benefits, the patient was deemed in satisfactory condition to undergo the procedure. The anesthesia plan was to use moderate sedation / analgesia (conscious sedation). Immediately prior to administration of medications, the patient was re-assessed for adequacy to receive sedatives. The heart rate, respiratory rate, oxygen saturations, blood pressure, adequacy of pulmonary ventilation, and response to care were monitored throughout the procedure. The physical status of the patient was re-assessed after the procedure. After obtaining informed consent, the endoscope was passed under direct vision. Throughout the procedure, the patient's blood pressure, pulse, and oxygen saturations were monitored continuously. The colonoscope was introduced through the mouth, and advanced to the jejunum. The upper GI endoscopy was accomplished without difficulty. The patient tolerated the procedure well. Scope In: 6:41:07 AM Scope Out: 6:47:50 AM Total Procedure Duration Time 0 hours 6 minutes 43 seconds Findings: The examined esophagus was normal. The entire examined stomach was normal. Three angiodysplastic lesions with bleeding were found in the duodenal bulb. Coagulation for hemostasis using bipolar probe was successful. Estimated blood loss was minimal. Two non-bleeding superficial duodenal ulcers with no stigmata of bleeding were found in the first portion of the duodenum. The largest lesion was 6 mm in largest dimension. Biopsies were taken with a cold forceps for histology. Verification of patient identification for the specimen was done. This was biopsied with a cold forceps for histology. Verification of patient identification for the specimen was done. Estimated blood loss was minimal. Impression: - Normal esophagus. - Normal stomach. - Three bleeding angiodysplastic lesions in the duodenum. Treated with bipolar cautery. - Multiple non-bleeding duodenal ulcers with no stigmata of bleeding. Biopsied. Recommendation: - Discharge patient to home. - Resume previous diet. - Continue present medications. - Await pathology results. Procedure Code(s): --- Professional --- 11047, 59, Esophagogastroduodenoscopy, flexible, transoral; with control of bleeding, any method 61199, Esophagogastroduodenoscopy, flexible, transoral; with biopsy, single or multiple CPT copyright 2017 [employer]. All rights reserved. The codes documented in this report are preliminary and upon information coder review may be revised to meet current compliance requirements. Elias Meza DO 03/24/2022 7:11:20 AM This report has been signed electronically. Number of Addenda: 0 Note Initiated On: 03/24/2022 6:20 AM
--- NOTE | 2022-03-24 07:17 | OP.CCLET_ITS ---
03/24/2022 Marlene Smart [address] [place] [address] Re : Colonoscopy procedure for [facility] Dear Dr. Smart This procedure was performed on March. My impressions and recommendations are as follows: Impressions : - Diverticulosis in the recto-sigmoid colon, in the sigmoid colon, in the descending colon and in the ascending colon. - Four 1 to 2 mm polyps in the sigmoid colon and at the hepatic flexure, removed with a hot snare. Resected and retrieved. Recommendations : - Repeat colonoscopy in 3 years for surveillance. - Continue present medications. My findings are described in the full procedure note, which is enclosed. If I can be of further assistance, please feel free to contact me at . Sincerely, Elias Friend, 03/24/2022 7:16:44 AM This report has been signed electronically.
--- NOTE | 2022-03-24 07:17 | OP.COLON_ITS ---
Patient Name: Saray Henry Procedure Date: 03/24/2022 6:48 AM Date of : 1945 Age: 76 Procedure: Colonoscopy Indications: Iron deficiency anemia Providers: Elias Meza DO Referring MD: Elias Mzea DO Medicines: Monitored Anesthesia Care Patient Profile: This is a 76 year old female. Refer to note in patient chart for documentation of history and physical. Patient has symptoms of acute epigastric abdominal pain. Last Colonoscopy: 5 years ago. Complications: No immediate complications. Procedure: Pre-Anesthesia Assessment: - Prior to the procedure, a History and Physical was performed, and patient medications and allergies were reviewed. The patient is competent. The risks and benefits of the procedure and the sedation options and risks were discussed with the patient. All questions were answered and informed consent was obtained. Patient identification and proposed procedure were verified by the physician. Mental Status Examination: normal. Prophylactic Antibiotics: The patient does not require prophylactic antibiotics. Prior Anticoagulants: The patient has taken no previous anticoagulant or antiplatelet agents. After reviewing the risks and benefits, the patient was deemed in satisfactory condition to undergo the procedure. The anesthesia plan was to use moderate sedation / analgesia (conscious sedation). Immediately prior to administration of medications, the patient was re-assessed for adequacy to receive sedatives. The heart rate, respiratory rate, oxygen saturations, blood pressure, adequacy of pulmonary ventilation, and response to care were monitored throughout the procedure. The physical status of the patient was re-assessed after the procedure. After I obtained informed consent, the scope was passed under direct vision. Throughout the procedure, the patient's blood pressure, pulse, and oxygen saturations were monitored continuously. The colonoscope was introduced through the anus and advanced to the terminal ileum. The colonoscopy was performed without difficulty. The patient tolerated the procedure well. The quality of the bowel preparation was adequate. Scope In: 6:50:26 AM Scope Withdrawal Time 0 hours 7 minutes 57 seconds Scope Out: 7:04:34 AM Total Procedure Duration Time 0 hours 14 minutes 8 seconds Findings: The perianal and digital rectal examinations were normal. Many small and large-mouthed diverticula were found in the recto-sigmoid colon, sigmoid colon, descending colon and ascending colon. Four sessile polyps were found in the sigmoid colon and hepatic flexure. The polyps were 1 to 2 mm in size. These polyps were removed with a hot snare. Resection and retrieval were complete. Verification of patient identification for the specimen was done. Estimated blood loss was minimal. Impression: - Diverticulosis in the recto-sigmoid colon, in the sigmoid colon, in the descending colon and in the ascending colon. - Four 1 to 2 mm polyps in the sigmoid colon and at the hepatic flexure, removed with a hot snare. Resected and retrieved. Recommendation: - Repeat colonoscopy in 3 years for surveillance. - Continue present medications. Procedure Code(s): --- Professional --- 87814, Colonoscopy, flexible; with removal of tumor(s), polyp(s), or other lesion(s) by snare technique CPT copyright 2017 [employer]. All rights reserved. The codes documented in this report are preliminary and upon 8th grade mathematics teacher review may be revised to meet current compliance requirements. Elias Meza DO 03/24/2022 7:16:44 AM This report has been signed electronically. Number of Addenda: 0 Note Initiated On: 03/24/2022 6:48 AM
[2022-03-24 07:25] VITALS: BP 117/76; BP 99/58; PULSE 72; RESP 16; TEMP 36.6; O2SAT 95
[2022-03-24 07:40] VITALS: BP 99/58
== END 2022-03-24 07:50 | disposition home or self-care (01) ==
LOC: EN 05:11 → AC 05:12
PROVIDERS: PCP Internal Medicine; Referring Provider Internal Medicine Gastroenterology; Visit Provider Internal Medicine Gastroenterology
PROC: 0DJD8ZZ Inspection of Lower Intestinal Tract, Via Natural or Artificial Opening Endoscopic (ICD-10-PCS; CPT 45378; principal; 2022-03-24 06:25)
DX: D50.9 Iron deficiency anemia, unspecified (principal); J44.9 Chronic obstructive pulmonary disease, unspecified; K57.30 Diverticulosis of large intestine without perforation or abscess without bleeding; F17.200 Nicotine dependence, unspecified, uncomplicated; K26.9 Duodenal ulcer, unspecified as acute or chronic, without hemorrhage or perforation; K63.5 Polyp of colon; E78.5 Hyperlipidemia, unspecified; I25.2 Old myocardial infarction; I10 Essential (primary) hypertension; Z95.5 Presence of coronary angioplasty implant and graft
CPT/HCPCS: 43239; 43255; 45385; 88305; J7120; J2405

== ENCOUNTER → 2022-06-02 | Outpatient (CLI) | payer MEDICARE, MEDICAID, SELFPAY ==
[2022-06-02 12:27] LABS: Absolute Lymphocyte Count 1.52 X10^3/uL (0.83-4.51); Absolute Neutrophil Count 4.7 X10^3/uL (2.0-7.7); Basophil# 0.04 X10^3/uL; Basophil% 0.6 % (0-1); Eosinophil# 0.08 X10^3/uL; Eosinophils% 1.2 % (0-5); Hematocrit 44.3 % (37-47); Hemoglobin 13.1 g/dL (12.0-15.0); Lymphocyte # 1.52 X10^3/ul (0.83-4.51); Mean Corp Hgb Conc 29.6 g/dL (32-36); Mean Corpuscular Hgb 23.6 pg (27.0-32.0); Mean Platelet Vol. 9.7 fl (6.2-12.0); Monocyte# 0.53 X10^3/uL; Monocyte% 7.7 % (0-10); NRBC Flagged by Analyzer 0 % (0-5); Neutrophil # 4.72 X10^3/uL (2.7-7.7); Neutrophil % 68.1 % (47-70); Platelet Count 377 K/mm3 (150-450); RBC Distribution Width CV 19.5 % (11.6-14.6); RBC Distribution Width SD 54.3 fl (35.1-43.9); Red Blood Count 5.54 M/mm3 (4.2-5.4); White Blood Count 6.9 K/mm3 (4.4-11.0)
[2022-06-02 13:04] LABS: AST(SGOT) 15 U/L (15-37); Alanine Aminotransfer ALT/SGPT 22 U/L (13-56); Albumin, Serum 3.4 g/dL (3.2-5.0); Alkaline Phosphatase 79 U/L (45-117); Bilirubin, Direct 0.09 mg/dL (0.00-0.30); Cholesterol 145 mg/dL (200); Globulin 3.5 g/dL (2.2-4.2); High Density Lipoprotein 66 mg/dL; Protein, Total 6.9 g/dL (6.4-8.2); Triglycerides 126 mg/dL; Very Low Density Lipoprotein 25 mg/dL (5-40)
[2022-06-06 12:58] LABS: Iron 31 ug/dL (50-170); Iron Binding Capacity,Total 439 ug/dL (250-450); LDH 165 U/L (84-246); PERCENT IRON SATURATION 7.1 % (15.0-55.0)
== END | disposition home or self-care (01) ==
PROVIDERS: Internal Medicine Cardiovascular Disease; PCP Internal Medicine; Referring Provider Internal Medicine Gastroenterology; Visit Provider Internal Medicine Gastroenterology
DX: E78.2 Mixed hyperlipidemia (principal); D64.9 Anemia, unspecified; I25.10 Atherosclerotic heart disease of native coronary artery without angina pectoris
CPT/HCPCS: 36415; 80061; 80076; 83540; 83550; 83615; 85025

== ENCOUNTER → 2022-06-15 | Outpatient (CLI) | payer MEDICARE, MEDICAID, SELFPAY ==
[2022-06-15 11:09] LABS: Anion Gap 4 (5-15); BUN 8 mg/dL (7-18); BUN/Creat Ratio 17.1 RATIO (10-20); Calcium,Total 8.9 mg/dL (8.5-10.1); Chloride 99 mmol/L (98-107); Creatinine, Serum 0.47 mg/dL (0.55-1.02); EST Glomerular Filtration Rate 138 mL/min (>60); Est Glom Filt Rate - Afr Amer 167 mL/min (>60); Glucose 91 mg/dL (74-106); Potassium 3.8 mmol/L (3.5-5.1); Sodium Level 132 mmol/L (136-145)
== END | disposition home or self-care (01) ==
LOC: LAB 09:20
PROVIDERS: PCP Internal Medicine; Referring Provider Nurse Practitioner Gerontology; Visit Provider Nurse Practitioner Gerontology
DX: I25.10 Atherosclerotic heart disease of native coronary artery without angina pectoris (principal); Z95.5 Presence of coronary angioplasty implant and graft
CPT/HCPCS: 36415; 80048

== ENCOUNTER → 2022-07-08 | Outpatient (CLI) | payer MEDICARE, MEDICAID, SELFPAY | END | disposition home or self-care (01) | LOC: LAB 12:25 | PROVIDERS: PCP Internal Medicine; Referring Provider Physician Assistant Medical; Visit Provider Internal Medicine Gastroenterology | DX: Z00.00 Encounter for general adult medical examination without abnormal findings (principal) ==

== ENCOUNTER → 2022-07-08 | Outpatient (CLI) | payer MEDICARE, MEDICAID, SELFPAY ==
[2022-07-08 13:35] LABS: Basophil# 0.04 X10^3/uL; Basophil% 0.6 % (0-1); Eosinophil# 0.11 X10^3/uL; Eosinophils% 1.6 % (0-5); Hematocrit 44.7 % (37-47); Hemoglobin 13.9 g/dL (12.0-15.0); Lymphocyte % 19.1 % (19-41); Mean Corp Hgb Conc 31.1 g/dL (32-36); Mean Corpuscular Hgb 25.1 pg (27.0-32.0); Mean Corpuscular Volume 80.7 fL (81-99); Mean Platelet Vol. 9.5 fl (6.2-12.0); Monocyte# 0.38 X10^3/uL; Monocyte% 5.6 % (0-10); NRBC Flagged by Analyzer 0 % (0-5); Neutrophil # 4.95 X10^3/uL (2.7-7.7); Neutrophil % 72.7 % (47-70); POSITIVE MORPHOLOGY YES; Platelet Count 305 K/mm3 (150-450); Platelet Count 312 K/mm3 (150-450); RBC Distribution Width CV 20.1 % (11.6-14.6); RBC Distribution Width SD 57.2 fl (35.1-43.9); RET-HE 29.9 pg (30-35); Red Blood Count 5.54 M/mm3 (4.2-5.4); Reticulocyte Count 1.21 % (0.5-1.5); White Blood Count 6.8 K/mm3 (4.4-11.0)
[2022-07-08 13:36] LABS: Differential Indicated SCAN CRITERIA MET
[2022-07-08 13:58] LABS: International Normalized Ratio 0.9; Prothrombin Time (Protime)PT. 12.5 SECONDS (11.7-14.9)
[2022-07-08 13:59] LABS: Partial Thromboplast Time 29.8 Seconds (24.1-36.2)
[2022-07-08 14:00] LABS: Iron 41 ug/dL (50-170); Iron Binding Capacity,Total 395 ug/dL (250-450); PERCENT IRON SATURATION 10.4 % (15.0-55.0)
[2022-07-08 14:01] LABS: Anion Gap 6 (5-15); BUN 9 mg/dL (7-18); BUN/Creat Ratio 14.9 RATIO (10-20); Calcium,Total 8.9 mg/dL (8.5-10.1); Chloride 101 mmol/L (98-107); EST Glomerular Filtration Rate 103 mL/min (>60); Est Glom Filt Rate - Afr Amer 124 mL/min (>60); Glucose 114 mg/dL (74-106); Potassium 3.4 mmol/L (3.5-5.1); Sodium Level 139 mmol/L (136-145)
[2022-07-08 14:07] LABS: Anisocytosis 1+
[2022-07-10 08:09] LABS: Transferrin 326 mg/dL (192-364)
[2022-07-13 09:42] VITALS: BMI 28.3
== END | disposition home or self-care (01) ==
LOC: PAT 08-08 10:11
PROVIDERS: Internal Medicine Gastroenterology; Physician Assistant Medical; PCP Internal Medicine; Visit Provider Specialist
DX: Z01.812 Encounter for preprocedural laboratory examination (principal); R07.9 Chest pain, unspecified; I25.10 Atherosclerotic heart disease of native coronary artery without angina pectoris; R06.02 Shortness of breath
CPT/HCPCS: 36415; 80048; 83540; 83550; 84466; 85025; 85045; 85610; 85730

== ENCOUNTER → 2022-09-07 | Outpatient (CLI) | payer MEDICARE, MEDICAID, SELFPAY ==
--- NOTE | 2022-09-07 14:54 | RAD_ITS ---
EXAM: XR CHEST, 2 VIEWS CLINICAL INDICATION: Cardiac catheterization TECHNIQUE: Frontal and lateral views of the chest. COMPARISON: No relevant prior studies available. FINDINGS: LUNGS AND PLEURAL SPACES: There is calcified granuloma in the left lower lobe. No pneumothorax. No effusion. HEART: Unremarkable. Cardiac silhouette not enlarged. MEDIASTINUM: Central airways and mediastinal contour are unremarkable. BONES/JOINTS: Unremarkable. SOFT TISSUES: Unremarkable. LYMPH NODES: Calcified left hilar nodes are again present. RAD/Chest PA and Lateral IMPRESSION: No acute findings in the chest. There has been no change from the reference exam. Electronically Signed: Pablo Barrett MD at 20:08 EDT ,
[2022-09-07 15:38] LABS: Absolute Lymphocyte Count 1.53 X10^3/uL (0.83-4.51); Absolute Neutrophil Count 3.8 X10^3/uL (2.0-7.7); Basophil# 0.03 X10^3/uL; Basophil% 0.5 % (0-1); Eosinophil# 0.14 X10^3/uL; Eosinophils% 2.4 % (0-5); Hematocrit 45.3 % (37-47); Hemoglobin 14.6 g/dL (12.0-15.0); Lymphocyte # 1.53 X10^3/ul (0.83-4.51); Lymphocyte % 25.9 % (19-41); Mean Corp Hgb Conc 32.2 g/dL (32-36); Mean Corpuscular Hgb 28.5 pg (27.0-32.0); Mean Corpuscular Volume 88.3 fL (81-99); Mean Platelet Vol. 9.7 fl (6.2-12.0); Monocyte% 6.8 % (0-10); NRBC Flagged by Analyzer 0 % (0-5); Neutrophil % 64.2 % (47-70); Platelet Count 262 K/mm3 (150-450); RBC Distribution Width CV 17.6 % (11.6-14.6); RBC Distribution Width SD 57.3 fl (35.1-43.9); Red Blood Count 5.13 M/mm3 (4.2-5.4); White Blood Count 5.9 K/mm3 (4.4-11.0)
[2022-09-07 16:19] LABS: Anion Gap 5 (5-15); BUN 9 mg/dL (7-18); Calcium,Total 8.6 mg/dL (8.5-10.1); Chloride 99 mmol/L (98-107); Creatinine, Serum 0.64 mg/dL (0.55-1.02); EST Glomerular Filtration Rate 95 mL/min (>60); Est Glom Filt Rate - Afr Amer 115 mL/min (>60); Glucose 94 mg/dL (74-106); Potassium 3.5 mmol/L (3.5-5.1); Sodium Level 136 mmol/L (136-145)
== END | disposition home or self-care (01) ==
LOC: RAD 14:53
PROVIDERS: PCP Internal Medicine; Referring Provider Nurse Practitioner Gerontology; Visit Provider Nurse Practitioner Gerontology
DX: Z95.5 Presence of coronary angioplasty implant and graft (principal); E78.2 Mixed hyperlipidemia
CPT/HCPCS: 36415; 71046; 80048; 85025

== ENCOUNTER 2022-09-22 09:21 | Day surgery (SDC) | payer MEDICARE, MEDICAID, SELFPAY ==
[2022-09-21 07:37] VITALS: BMI 28.4
--- NOTE | 2022-09-22 13:40 | CRPHASE1 ---
Patient Communication Patient Information Former Patient:: Phase I PHII Cardiac Rehab Discussed with Patient:: Yes Guide to Cardiac Rehab Given to Patient:: Yes Cardiac Rehab Facility Choice List Given to Patient:: Yes Communication to Cardiac Rehab Choice Program [facility] PHII:: Communication Given to CR Control Systems Technician:: Nyla Rivera Phase II Cardiac Rehab:: Yes Sessions:: 36 sessions - 3 days/wk, 12 weeks Cardiac Rehabilitation Info Program Information Cardiac Rehabilitation Program Information: Cardiac Rehab The cardiac rehab team at [facility] consists of highly skilled exercise physiologists, nurses, respiratory therapists and physicians working together with you. Our purpose is to help you have a full recovery and achieve the goals you set for yourself. Over the years many of our patients have returned to activities they assumed they would never do again! We can help restore your confidence and motivation to make lifestyle changes that can have a significant impact on your health and quality of life! We can help answer questions and concerns you may have about exercise, lifestyle, medications, diet, stress and anxiety which are common following a hospitalization. WE monitor ECG and vital signs during exercise and discuss your progress with you and report to your physician(s). Cardiac Rehab is proven to help reduce readmissions, improve functional capacity and lower recurrence of problems with your heart. Our Cardiac Rehab program is Certified by the [place] [employer] Pulmonary [employer] (AACVPR) and Accredited by the [place] [employer] through our [facility]. You can contact us at . We invite you to call us with your questions or to get started in our program. If you have other questions or concerns be sure to ask your physician/provider during your follow-up visit. WE look forward to seeing you!
--- NOTE | 2022-09-22 13:40 | CRPH1.INSTRU ---
General Education Discussed with Patient CAD and cardiac anatomy and function:: Patient communicates acknowledgment and Family communicates acknowledgment Explanation of diagnoses and procedures:: Patient communicates acknowledgment and Family communicates acknowledgment Sign/Symptoms of [place]:: Patient communicates acknowledgment and Family communicates acknowledgment Antiplatelet therapy: Patient communicates acknowledgment and Family communicates acknowledgment Proper use of NTG-SL: Patient communicates acknowledgment and Family communicates acknowledgment Emergency procedures and activation of EMS: Patient communicates acknowledgment and Family communicates acknowledgment Compliance of all prescribed medications: Patient communicates acknowledgment and Family communicates acknowledgment Smoking Risk Factors Patient Nicotine/Smoking Risk Factors Are:: Cigarettes Recommendations Recommendations Include:: Smoking cessation strategies/Smoking packet Response Code Nicotine/Smoking Response Code:: Patient communicates acknowledgment and Family communicates acknowledgment Dyslipidemia Risk Factors Patient Dyslipidemia Risk Factors Are:: Total Cholesterol, Triglycerides, HDL and LDL Recommendations Recommendations Include:: Lipid profile not available Response Code Dyslipidemia Response Code:: Patient communicates acknowledgment and Family communicates acknowledgment Overweight/Obesity Risk Factors Patient Overweight/Obesity Risk Factors Are:: BMI Normal [24-29 & > 65 years old] Recommendations Recommendations Include:: Weight loss of 5-10%, Reduced calorie diet and Exercise 5-7 times/week Response Code Overweight/Obesity:: Patient communicates acknowledgment and Family communicates acknowledgment Hypertension Recommendations Recommendations Include:: Maintain BP <130/85 and Decrease/maintain normal body weight Response Code Hypertension:: Patient communicates acknowledgment and Family communicates acknowledgment Heart Disease Risk Factors Patient Heart Disease Risk Factors Are:: Previous cardiac event Recommendations Recommendations Include:: Educated family members of their risk and Educated family members of importance of prevention of heart disease Response Code Heart Disease Response Code:: Patient communicates acknowledgment and Family communicates acknowledgment Sedentary Risk Factors Patient Sedentary Risk Factors Are:: Lack of regular exercise Recommendations Recommendations Include:: Aerobic exercise 5-7 times/week for 20-30 minutes continuously, Benefits of regular exercise, Discussed home walking program and Monitored Outpatient Cardiac Rehab Response Code Sedentary Response Code:: Patient communicates acknowledgment and Family communicates acknowledgment
--- NOTE | 2022-09-23 11:08 | CL.I_ITS ---
Patient Name: MANUEL CABEZAS Study Date: 09/22/2022 Performing: Kinza Rivera MD Ht: 65 inches 165.1 cm : 1945 Wt: 170.99 lbs 77.56 kg Age: 76 Gender: female BSA: 1.85 PROCEDURE(S) PERFORMED DC02-(94734)LHC/COR IC10-(51651)FFR, CORONARY OR GRAFT, INITIAL VESSEL IC12-(33994/C9600)BRENT W/WO PTCA, SINGLE CORONARY ARTERY CLINICAL PROFILE AND CO-MORBIDITIES Indications: Worsening Angina Heart Failure: None Stress/Imaging Stress/Image Study Performed: No CAD Presentations: Unstable angina. CONCLUSIONS CAD as described. Successful IFR guided PCI of mid LAD with drug-eluting stent. RECOMMENDATIONS DESCRIPTION OF PROCEDURE The patient arrived to the procedure lab. The risks and benefits of the procedure as well as a full description of our services here and lack of surgical backup were fully explained to the patient and/or their significant other prior to the catheterization. The Timeout was completed, verifying the correct patient and procedure. The patient's procedural site was prepped and draped in the usual fashion. Local anesthetic was given subcutaneously to right radial region with Lidocaine 2%. Local anesthetic was given subcutaneously to right groin region with Lidocaine 2%. Using a modified Seldinger technique, arterial access was obtained via the right femoral artery, a 5Fr Micropuncture sheath was inserted.. Right Coronary Artery selective angiography was then performed in multiple views using a 5 Fr. JR 4 catheter. Left Coronary Artery selective angiography was performed in multiple views using a 5 Fr. JL4 catheterThe images were reviewed and options discussed. A decision was then made to proceed with an Intervention, IVUS or other adjunct procedure. XB 3.5 Guide catheter was inserted and engaged into the LCA. The FFR/iFR wire was inserted. Pressures and FFR/iFR were then recorded. iFR measurements were performed. iFR Ratio: 8.5 The FFR/iFR wire was left in place as guide wire. Emerge 2.5 x 8 Balloon catheter was inserted. Balloon catheter was advanced across lesion in the LAD, mid. PTCA balloon inflated at 6 atms for 6 secs. Resolute [place] 2.5 x 15 Drug Eluting stent was inserted. Drug Eluting stent was advanced across the lesion in the LAD, mid. NC Emerge 2.5 x 12 Balloon catheter was inserted. Balloon catheter was advanced across lesion in the LAD, mid. The arterial sheath was pulled and a Perclose closure device was deployed for hemostasis CORONARY ANGIOGRAPHY DOMINANCE: Right Dominant LEFT MAIN: 20-25 % Stenosis LEFT ANTERIOR DESCENDING ARTERY: MID LAD: 80 % Stenosis CIRCUMFLEX ARTERY: Mild luminal irregularities RIGHT CORONARY ARTERY: Previously placed stent is patent Mild luminal irregularities INTERVENTION INFORMATION LESION SITE: LAD (Mid) Lesion Complexity: High/C, chronic total occlusion: No, lesion at bifurcation: No, thrombus present: No, lesion length: 12 mm, culprit lesion: Yes, Previously treated lesion: No Pre Stenosis: 80 % Pre intervention HANANE flow: 3 PROCEDURE: Drug Eluting Stent with pre and post dilatation iFR in the LAD was 0.85 Post Stenosis: 0 % Post intervention HANANE flow: 3 Lesion Devices: [employer] ([employer]) Coronary FFR Wire Cordis 6 Fr XB3.5 100cm Guide Catheter Kvng Sci EMERGE MR 2.50x08 BALLOON Medtronic Resolute Checo RX BRENT 2.5x15 Kvng Sci NC EMERGE MR 2.50x12 BALLOON COMPLICATIONS No Complications PROCEDURE MEDICATIONS Versed 1 mg IV Fentanyl 50 mcg IV Versed 1 mg IV Fentanyl 25 mcg IV Fentanyl 25 mcg IV Oxygen: 2 L/min via nasal cannula Heparin 5000 unit(s) IV 09/22/2022 11:30:20 IV Bolus: .9 NaCl 500 ml total 09/22/2022 11:55:38 SUMMARY OF HEMODYNAMIC DATA Time AIR REST ECG 09:50:12 AO 147/64 (99) SA 11:17:14 Signed By Kinza Rivera MD On 09/23/2022 11:19:52 Kinza Rivera MD
== END 2022-09-22 15:15 | disposition home or self-care (01) ==
PROVIDERS: PCP Internal Medicine; Referring Provider Specialist; Visit Provider Specialist
DX: I25.110 Atherosclerotic heart disease of native coronary artery with unstable angina pectoris (principal); J44.9 Chronic obstructive pulmonary disease, unspecified; Z95.5 Presence of coronary angioplasty implant and graft; F17.200 Nicotine dependence, unspecified, uncomplicated; I10 Essential (primary) hypertension; I25.2 Old myocardial infarction; Z86.16 Personal history of COVID-19; Z79.82 Long term (current) use of aspirin; R06.02 Shortness of breath; I25.5 Ischemic cardiomyopathy; I65.29 Occlusion and stenosis of unspecified carotid artery; R53.83 Other fatigue; E78.2 Mixed hyperlipidemia
CPT/HCPCS: 92928; 93005; 93454; 93571; 99152; 99153; J7040; Q9967; C1725; C1760; C1769; C1874; C1887; C1894; C9600

== ENCOUNTER → 2023-01-09 | Outpatient (CLI) | payer MEDICARE, MEDICAID, SELFPAY ==
--- NOTE | 2023-01-09 12:52 | CDU_ITS ---
Reason For Study: Dizziness Rt. Velocities/BP Lt. Velocities/BP Prox CCA 66.3/16.8 cm/sec. Prox CCA 76.5/18.8 cm/sec. Mid CCA 64.1/17.9 cm/sec. Mid CCA 91.2/22.5 cm/sec. Dist CCA 59.7/16.8 cm/sec. Dist CCA 56.9/18.8 cm/sec. Prox ICA 227.2/68.9 cm/sec. Prox ICA 201.4/55.9 cm/sec. Mid ICA 198.2/53.3 cm/sec. Mid ICA 136.8/24.8 cm/sec. Dist ICA 55.8/20.2 cm/sec. Dist ICA 86.1/27.8 cm/sec. Rt. ICA/CCA = 3.5. Lt. ICA/CCA = 2.2. Prox ECA 122.3/15.7 cm/sec. Prox ECA 163.1/18.2 cm/sec. Rt. Vert. 75.3/18.8 cm/sec. Lt. Vert. 78.4/23.4 cm/sec. Right Extracranial There is heterogeneous, irregular atherosclerotic plaque noted in the right common carotid artery. There is heterogeneous, irregular atherosclerotic plaque noted in the right internal carotid artery. The atherosclerotic plaque causes acoustic shadowing. There is heterogeneous, irregular atherosclerotic plaque noted in the right external carotid artery. Antegrade flow is noted in the right vertebral artery. Left Extracranial There is heterogeneous, irregular atherosclerotic plaque noted in the left common carotid artery. There is heterogeneous, irregular atherosclerotic plaque noted in the left internal carotid artery. There is heterogeneous, irregular atherosclerotic plaque noted in the left external carotid artery. Antegrade flow is noted in the left vertebral artery. Procedure Carotid Duplex 31044. This is a Carotid Duplex examination using B-mode, color flow and specral Doppler. The exam was diagnostic. The study was technically difficult. Exam performed in department. VL/Carotid Duplex Ultrasound Interpretation Summary Irregular calcific plaque with shadowing at the proximal right internal carotid artery with greater than 70% stenosis Less than 50% stenosis right external carotid artery Irregular calcific plaque with shadowing at the proximal left internal carotid artery with 50 to 69% stenosis. Less than 50% stenosis left external carotid artery Patent antegrade vertebral arteries bilaterally This examination appears to be similar to a previous examination of March 21, 2022 Ordering Physician: Shorty Hanson Referring Physician: Marlene Smart Performed By: Christopher Chaidez RVT
== END | disposition home or self-care (01) ==
LOC: CVS 12:51
PROVIDERS: PCP Internal Medicine; Referring Provider Surgery; Visit Provider Surgery
DX: I65.23 Occlusion and stenosis of bilateral carotid arteries (principal); R42 Dizziness and giddiness
CPT/HCPCS: 93880

== ENCOUNTER → 2023-03-29 | Outpatient (CLI) | payer MEDICARE, MEDICAID, SELFPAY ==
[2023-03-29 12:22] LABS: Absolute Lymphocyte Count 1.73 X10^3/uL (0.83-4.51); Absolute Neutrophil Count 5.9 X10^3/uL (2.0-7.7); Basophil# 0.06 X10^3/uL; Basophil% 0.7 % (0-1); Eosinophil# 0.14 X10^3/uL; Eosinophils% 1.7 % (0-5); Hematocrit 47.9 % (37-47); Hemoglobin 15.8 g/dL (12.0-15.0); Lymphocyte # 1.73 X10^3/ul (0.83-4.51); Lymphocyte % 20.4 % (19-41); Mean Corpuscular Hgb 30.6 pg (27.0-32.0); Mean Corpuscular Volume 92.8 fL (81-99); Mean Platelet Vol. 10.1 fl (6.2-12.0); Monocyte# 0.58 X10^3/uL; Monocyte% 6.8 % (0-10); NRBC Flagged by Analyzer 0 % (0-5); Neutrophil # 5.93 X10^3/uL (2.7-7.7); Platelet Count 283 K/mm3 (150-450); RBC Distribution Width CV 13.3 % (11.6-14.6); RBC Distribution Width SD 45.7 fl (35.1-43.9); Red Blood Count 5.16 M/mm3 (4.2-5.4); White Blood Count 8.5 K/mm3 (4.4-11.0)
[2023-03-29 13:01] LABS: BNP,B-Type NATRIURETIC PEPTIDE 26.9 pg/mL (0-100)
[2023-03-29 13:12] LABS: AST(SGOT) 20 U/L (15-37); Alanine Aminotransfer ALT/SGPT 18 U/L (13-56); Albumin, Serum 3.4 g/dL (3.2-5.0); Alkaline Phosphatase 80 U/L (45-117); Anion Gap 2 (5-15); BUN 9 mg/dL (7-18); BUN/Creat Ratio 17.3 RATIO (10-20); Bilirubin, Direct 0.14 mg/dL (0.00-0.30); Calcium,Total 9.2 mg/dL (8.5-10.1); Chloride 104 mmol/L (98-107); Cholesterol 162 mg/dL (200); Creatinine, Serum 0.52 mg/dL (0.55-1.02); EST Glomerular Filtration Rate 122 mL/min (>60); Est Glom Filt Rate - Afr Amer 147 mL/min (>60); Free T3 2.8 pg/mL (2.18-3.98); Globulin 3.5 g/dL (2.2-4.2); Glucose 88 mg/dL (74-106); High Density Lipoprotein 53 mg/dL; Iron Binding Capacity,Total 405 ug/dL (250-450); Potassium 3.8 mmol/L (3.5-5.1); Protein, Total 6.9 g/dL (6.4-8.2); Sodium Level 138 mmol/L (136-145); T4 Free Direct 0.93 ng/dL (0.76-1.46); Triglycerides 127 mg/dL; Very Low Density Lipoprotein 25 mg/dL (5-40)
== END | disposition home or self-care (01) ==
PROVIDERS: PCP Internal Medicine; Referring Provider Nurse Practitioner Gerontology; Visit Provider Nurse Practitioner Gerontology
DX: D64.9 Anemia, unspecified (principal); R53.83 Other fatigue; E78.5 Hyperlipidemia, unspecified; R06.09 Other forms of dyspnea
CPT/HCPCS: 36415; 80048; 80061; 80076; 83550; 83880; 84439; 84443; 84481; 85025

== ENCOUNTER → 2023-06-23 | Outpatient (CLI) | payer MEDICARE, MEDICAID, SELFPAY ==
--- NOTE | 2023-06-23 12:57 | ECHOD_ITS ---
Reason For Study: DYSPNEA Procedure This was a 2D Doppler, Color Flow transthoracic echocardiogram. Exam performed in department. Left Ventricle Normal size and thickness. The left ventricular ejection fraction is 65 %. Diastolic function is indeterminate. Right Ventricle Normal right ventricle. A moderator band is seen in the right ventricle. Atria The left and right atria are normal. Mitral Valve There is Mild focal posterior mitral annular calcification. Tricuspid Valve Trivial tricuspid valve insufficiency. Unable to estimate RV systolic pressure due to insufficient tricuspid regurgitant envelope. Aortic Valve The aortic valve is not well visualized in the short axis view. There is no aortic stenosis. No aortic valve insufficiency. Pulmonic Valve The pulmonic valve is not well visualized. Great Vessels The aortic root is not well visualized. Pericardium/Pleural Epicardial fat. MMode/2D Measurements & Calculations LAV(MOD-bp): 41.3 ml LVAd ap4: 22.9 cm2 SV(MOD-sp4): 35.9 ml LAV(MOD-bp) Indexed: 23.2 ml/m2 LVLd ap4: 7.2 cm LAV(MOD-sp2): 44.4 ml EDV(MOD-sp4): 60.5 ml LAV(MOD-sp4): 36.7 ml EDV(sp4-el): 61.5 ml LVAs ap4: 13.1 cm2 LVLs ap4: 5.8 cm ESV(MOD-sp4): 24.6 ml ESV(sp4-el): 25.1 ml EF(MOD-sp4): 59.3 % EF(sp4-el): 59.2 % SV(sp4-el): 36.4 ml LA A4 area: 14.1 cm2 RA A4 area: 7.7 cm2 TAPSE: 1.4 cm Time Measurements MV dec time: 0.23 sec Doppler Measurements & Calculations MV E max abel: 65.4 cm/sec Lat Peak E' Abel: 7.1 cm/sec Med Peak E' Abel: 4.4 cm/sec MV A max abel: 95.0 cm/sec E/E' lat: 9.2 E/E' med: 15.0 MV E/A: 0.69 MV V2 max: 104.6 cm/sec Ao V2 max: 109.0 cm/sec MV max P.4 mmHg MV dec slope: 285.3 cm/sec2 Ao max P.8 mmHg MV V2 mean: 55.9 cm/sec Ao V2 mean: 74.0 cm/sec MV mean P.4 mmHg Ao mean P.5 mmHg MV V2 VTI: 30.8 cm Ao V2 VTI: 25.9 cm AV (velocity ratio): 0.97 LV V1 max: 113.3 cm/sec LV V1 max P.1 mmHg LV V1 mean P.5 mmHg LV V1 mean: 73.7 cm/sec LV V1 VTI: 25.2 cm ECHO/Echo Complete Interpretation Summary The left ventricular ejection fraction is 65 %. There is Mild focal posterior mitral annular calcification. Epicardial fat. Ordering Physician: Lois Mcgowan Referring Physician: Lois Mcgowan Performed By: Teresa Estrada RCS
== END | disposition home or self-care (01) ==
LOC: CVS 12:52
PROVIDERS: PCP Internal Medicine; Referring Provider Nurse Practitioner Gerontology; Visit Provider Nurse Practitioner Gerontology
DX: R06.02 Shortness of breath (principal); I25.5 Ischemic cardiomyopathy
CPT/HCPCS: 93306

== ENCOUNTER → 2024-10-16 | Outpatient (CLI) | payer MEDICARE, MEDICAID, SELFPAY ==
[2024-10-16 16:53] LABS: Hematocrit 45.8 % (37-47); Hemoglobin 15.5 g/dL (12.0-15.0); Immature Granulocytes Count 0.030 X10^3/uL (0.0-0.0); Mean Corp Hgb Conc 33.8 g/dL (32-36); Mean Corpuscular Volume 90.5 fL (81-99); Mean Platelet Vol. 9.7 fl (6.2-12.0); NRBC Flagged by Analyzer 0 % (0-5); Platelet Count 307 K/mm3 (150-450); RBC Distribution Width CV 12.9 % (11.6-14.6); RBC Distribution Width SD 42.7 fl (35.1-43.9); Red Blood Count 5.06 M/mm3 (4.2-5.4); White Blood Count 8.0 K/mm3 (4.4-11.0)
[2024-10-16 17:23] LABS: Anion Gap 11 (5-15); BUN 12 mg/dL (4-19); BUN/Creat Ratio 19.7 RATIO (10-20); Calcium,Total 9.0 mg/dL (7.6-11.0); Carbon Dioxide 28.5 mmol/L (21.0-32.0); Chloride 94 mmol/L (98-108); Glucose 100 mg/dL (70-99); Potassium 3.7 mmol/L (3.3-5.1); Pro- Brain NATRIURETIC PEPTIDE 112 pg/mL (<=1800)
== END | disposition home or self-care (01) ==
LOC: LAB 15:55
PROVIDERS: PCP Internal Medicine; Referring Provider Nurse Practitioner Gerontology; Visit Provider Nurse Practitioner Gerontology
DX: R06.09 Other forms of dyspnea (principal)
CPT/HCPCS: 36415; 80048; 83880; 85025

== ENCOUNTER → 2024-11-13 | Outpatient (CLI) | payer MEDICARE, MEDICAID, SELFPAY ==
--- NOTE | 2024-11-13 13:33 | CDU_ITS ---
Reason For Study Reason For Study: Lightheaded Rt. Velocities/BP Lt. Velocities/BP Prox CCA 35.1/9.6 cm/sec. Prox CCA 67.0/19.2 cm/sec. Mid CCA 34.2/8.7 cm/sec. Mid CCA 97.7/24.1 cm/sec. Dist CCA 23.8/5.9 cm/sec. Dist CCA 72.1/18.2 cm/sec. Unable to acquire doppler signal within ICA. Prox ICA 203.7/56.0 cm/sec. Prox ECA 126.6/18.8 cm/sec. Mid ICA 159.7/37.8 cm/sec. Rt. Vert. 89.9/20.5 cm/sec. Dist ICA 118.2/37.8 cm/sec. Lt. ICA/CCA = 2.1. Prox ECA 208.9/24.9 cm/sec. Lt. Vert. 94.1/32.7 cm/sec. Right Extracranial There is heterogeneous, irregular atherosclerotic plaque noted in the right common carotid artery. There is heterogeneous, irregular atherosclerotic plaque noted in the right internal carotid artery. The atherosclerotic plaque causes acoustic shadowing. Unable to acquire color or doppler signal within the Proximal and Mid portions of the vessel. Possible total occlusion. There is heterogeneous, irregular atherosclerotic plaque noted in the right external carotid artery. Antegrade flow is noted in the right vertebral artery. Left Extracranial There is heterogeneous, irregular atherosclerotic plaque noted in the left common carotid artery. There is heterogeneous, irregular atherosclerotic plaque noted in the left internal carotid artery. The atherosclerotic plaque causes acoustic shadowing. There is heterogeneous, irregular atherosclerotic plaque noted in the left external carotid artery. Antegrade flow is noted in the left vertebral artery. Procedure Carotid Duplex [id number]. This is a Carotid Duplex examination using B-mode, color flow and specral Doppler. The study was technically difficult due to patient labored breathing and acoustic shadowing. Limited views were obtained. Exam performed in department. Preliminary result reported to UGO Sanches at [facility]. VL/Carotid Duplex Ultrasound Interpretation Summary Occlusion of the right extracranial internal carotid. Moderate (50-69%) stenosis left extracranial internal carotid. Patent and antegrade vertebrals bilaterally. Limited due to calcific shadowing, alternative imaging may be beneficial. Ordering Physician: Lois Mcgowan Referring Physician: Marlene Smart Performed By: Christopher Chaidez RVT
--- NOTE | 2024-11-13 13:33 | ECHOD_ITS ---
Reason For Study Reason For Study: DYSPNEA Procedure This was a 2D Doppler, Color Flow transthoracic echocardiogram. The study was technically difficult. Exam performed in department. Left Ventricle Normal LV size. The left ventricular ejection fraction is 55 %. Stage 1 diastolic dysfunction. No regional wall motion abnormalities noted. Right Ventricle Normal RV size. Normal systolic function. Atria Normal left atrium. Normal right atrium. Mitral Valve There is moderate mitral annular calcification. Tricuspid Valve Normal tricuspid valve. Aortic Valve Trisinus/trileaflet aortic valve. Pulmonic Valve Normal pulmonic valve. Great Vessels Normal aortic root. The pulmonary artery is normal size. Inferior vena cava collapse with respiration. Pericardium/Pleural No pericardial effusion. MMode/2D Measurements & Calculations LVIDd: 4.3 cm IVSd: 1.00 cm LVOT diam: 1.9 cm LVIDs: 2.5 cm LVPWd: 1.0 cm LVOT area: 2.9 cm2 RVDd: 2.8 cm FS: 41.1 % asc Aorta Diam: 3.4 cm LAV(MOD-bp): 16.9 ml LVAd ap4: 20.0 cm2 LAV(MOD-bp) Indexed: 8.7 ml/m2 LVLd ap4: 7.2 cm LAV(MOD-sp2): 22.2 ml EDV(MOD-sp4): 46.1 ml LAV(MOD-sp4): 13.7 ml EDV(sp4-el): 47.1 ml LVAs ap4: 12.1 cm2 LVLs ap4: 6.2 cm ESV(MOD-sp4): 19.3 ml ESV(sp4-el): 20.1 ml EF(MOD-sp4): 58.2 % EF(sp4-el): 57.4 % LVAd ap2: 14.8 cm2 SV(MOD-sp4): 26.8 ml SV(MOD-sp2): 16.0 ml LVLd ap2: 6.5 cm SI(MOD-sp4): 13.8 ml/m2 SI(MOD-sp2): 8.3 ml/m2 EDV(MOD-sp2): 28.3 ml EDV(sp2-el): 28.8 ml LVAs ap2: 8.9 cm2 LVLs ap2: 5.6 cm ESV(MOD-sp2): 12.2 ml ESV(sp2-el): 12.1 ml EF(MOD-sp2): 56.7 % SV(sp4-el): 27.1 ml Ao sinus diam: 3.[address] Junction: 2.1 cm LA dimension(2D): 3.5 cm LA A4 area: 8.9 cm2 RA A4 area: 8.3 cm2 TAPSE: 1.6 cm Time Measurements MV dec time: 0.32 sec Doppler Measurements & Calculations MV E max abel: 60.2 cm/sec Lat Peak E' Abel: 6.9 cm/sec Med Peak E' Abel: 5.3 cm/sec MV A max abel: 109.1 cm/sec E/E' lat: 8.7 E/E' med: 11.4 MV E/A: 0.55 MV dec slope: 188.4 cm/sec2 Ao V2 max: 163.7 cm/sec LV V1 max: 124.4 cm/sec Ao max P.7 mmHg LV V1 max P.2 mmHg Ao V2 mean: 106.4 cm/sec LV V1 mean P.5 mmHg Ao mean P.3 mmHg LV V1 mean: 89.2 cm/sec Ao V2 VTI: 32.8 cm LV V1 VTI: 21.4 cm AV (velocity ratio): 0.65 JEFFRY(I,D): 1.9 cm2 JEFFRY(V,D): 2.2 cm2 SV(LVOT): 62.0 ml PA V2 max: 81.5 cm/sec ECHO/Echo Complete Interpretation Summary The left ventricular ejection fraction is 55 %. Normal LV size. Stage 1 diastolic dysfunction. There is moderate mitral annular calcification. Ordering Physician: Lois Mcgowan Referring Physician: Marlene Smart M.D. Performed By: Macarena Zurita RDCS
== END | disposition home or self-care (01) ==
LOC: CVS 13:33
PROVIDERS: PCP Internal Medicine; Referring Provider Nurse Practitioner Gerontology; Visit Provider Nurse Practitioner Gerontology
DX: R06.09 Other forms of dyspnea (principal); R42 Dizziness and giddiness
CPT/HCPCS: 93306; 93880

== ENCOUNTER → 2024-11-20 | Outpatient (CLI) | payer MEDICARE, MEDICAID, SELFPAY ==
[2024-11-20 13:45] LABS: Anion Gap 10 (5-15); BUN 12 mg/dL (4-19); BUN/Creat Ratio 19.8 RATIO (10-20); Calcium,Total 9.4 mg/dL (7.6-11.0); Carbon Dioxide 29.0 mmol/L (21.0-32.0); Chloride 95 mmol/L (98-108); Glucose 97 mg/dL (70-99); Potassium 4.3 mmol/L (3.3-5.1); Pro- Brain NATRIURETIC PEPTIDE 123 pg/mL (<=1800)
== END | disposition home or self-care (01) ==
LOC: LAB 12:53
PROVIDERS: PCP Internal Medicine; Referring Provider Nurse Practitioner Gerontology; Visit Provider Nurse Practitioner Gerontology
DX: R06.09 Other forms of dyspnea (principal)
CPT/HCPCS: 36415; 80048; 83880

== ENCOUNTER → 2024-12-09 | Outpatient (CLI) | payer MEDICARE, MEDICAID, SELFPAY ==
--- NOTE | 2024-12-09 14:07 | CT_ITS ---
PROCEDURE: CTA HEAD AND NECK W/ CONTRAST 12/09/2024 REASON FOR EXAM: R ICA OCCLUSION, L ICA STENOSIS TECHNIQUE: Procedure Code: CTCTA.HDNCK Modality: CT Procedure: CTA HEAD AND NECK W/ CONTRAST Multiplanar Sagittal and Coronal images were obtained. 3D post processing was performed CONTRAST: Isovue 370 VOLUME: 75 mL One or more dose reduction techniques were used (e.g., Automated exposure control, adjustment of the mA and/or kV according to patient size, use of iterative reconstruction technique). RADIATION DOSE SUMMARY: CTDlvol: 27 mGy DLP: 1599.3 mGycm COMPARISON: None FINDINGS: Aortic Arch: Normal size and branching pattern. Mild atherosclerotic plaque. Brachiocephalic and Subclavians: Mild atherosclerotic plaque without significant stenosis. RIGHT Carotid: Right CCA: Mild calcified and soft plaque. Right ICA: Marked degree of calcific plaque and subtotal occlusion at its origin. Maximum stenosis (NASCET): > 90 % Right ECA: Unremarkable. LEFT Carotid: Left CCA: Mild calcified and soft plaque. Left ICA: Moderate calcified and soft plaque. Maximum stenosis (NASCET): Greater than 80 % Left ECA: Unremarkable. Vertebrals: Codominant. Arise from the subclavians. Both vertebrals form the basilar. RIGHT Vertebral: Unremarkable. LEFT Vertebral: Unremarkable. Anatomy: [place] anatomy is normal. Atherosclerotic plaque formation of the cavernous portions of the internal carotid arteries bilaterally. Aneurysm or avm: No intracranial aneurysms or large vascular malformations are identified. Anterior cerebral arteries: Unremarkable: Middle cerebral arteries: Unremarkable. Basilar artery: Unremarkable. Posterior cerebral arteries: Unremarkable. Other major branches of the posterior circulation: Unremarkable. Major venous structures: Unremarkable. Other findings: Neck: Lungs: Bones: CT/CTA Head AND Neck W/ Contrast IMPRESSION: High-grade stenosis right greater than left at the origins of both right and le ft internal carotid arteries. Reading Location: [place] [id number]
== END | disposition home or self-care (01) ==
LOC: CT 14:04
PROVIDERS: PCP Internal Medicine; Referring Provider Physician Assistant; Visit Provider Physician Assistant
DX: I65.23 Occlusion and stenosis of bilateral carotid arteries (principal)
CPT/HCPCS: 70496; 70498; Q9967; A4216